=== PATIENT | female | born 1985 | race Caucasian/White ===

== ENCOUNTER → 2023-02-05 13:41 | Outpatient (REF) | payer OTHER, SELFPAY | LOC: WOUND 13:41 | PROVIDERS: ATTENDING PHYSICIAN Surgery; REFERRING PHYSICIAN Family Medicine | DX: I87.313 Chronic venous hypertension (idiopathic) with ulcer of bilateral lower extremity (principal); L97.811 Non-pressure chronic ulcer of other part of right lower leg limited to breakdown of skin; L97.311 Non-pressure chronic ulcer of right ankle limited to breakdown of skin; L97.321 Non-pressure chronic ulcer of left ankle limited to breakdown of skin; I89.0 Lymphedema, not elsewhere classified; E66.01 Morbid (severe) obesity due to excess calories | CPT/HCPCS: 97597; 97598 ==

== ENCOUNTER → 2023-02-12 14:42 | Outpatient (REF) | payer OTHER, SELFPAY | LOC: WOUND 14:42 | PROVIDERS: ATTENDING PHYSICIAN Surgery; REFERRING PHYSICIAN Family Medicine | DX: I87.313 Chronic venous hypertension (idiopathic) with ulcer of bilateral lower extremity (principal); L97.811 Non-pressure chronic ulcer of other part of right lower leg limited to breakdown of skin; L97.311 Non-pressure chronic ulcer of right ankle limited to breakdown of skin; L97.321 Non-pressure chronic ulcer of left ankle limited to breakdown of skin; I89.0 Lymphedema, not elsewhere classified; E66.01 Morbid (severe) obesity due to excess calories | CPT/HCPCS: 11042; 97597; 97598 ==

== ENCOUNTER → 2023-04-02 | Outpatient (REF) | payer OTHER, SELFPAY | LOC: DHSLP | PROVIDERS: ATTENDING PHYSICIAN Internal Medicine; FAMILY PHYSICIAN Family Medicine | DX: G47.33 Obstructive sleep apnea (adult) (pediatric) (principal) | CPT/HCPCS: 95800 ==

== ENCOUNTER 2023-04-15 15:34 | Inpatient (IN) | payer OTHER, SELFPAY ==
[2023-04-15] VITALS (14 sets, daily range): BP systolic 92–199; BP diastolic 52–115; PULSE 2–127; BMI 81.1
[2023-04-15 13:01] LABS: COVID-19 Antigen Negative (Negative)
--- NOTE | 2023-04-15 13:33 | ED.GENMED ---
History of Present Illness
General
Chief Complaint: Breathing Problem
Source: patient and family
Time Seen by Provider: 04/15/23 13:19
Travel History
Have you had any contact with someone who has COVID-19?: No
Do you have any symptoms of coronavirus? Fever > 100 degrees, chills, cough, shortness of breath, sore throat, loss of taste or smell, muscle aches, or headache?: No
History of Present Illness
History of Present Illness:
This patient is a 38-year-old female with a history of obesity, lymphedema, and multiple events of cellulitis. She says that 2 weeks ago she felt like she got a 'cold' described as productive cough and hoarse voice. Since that time, she also noted
drainage from her legs bilaterally and was concerned that she may have cellulitis. She was put on Keflex by her primary care doctor on Thursday. Since then, she notes increasing dyspnea associated with increasing cough. She denies fever, chills,
vomiting, abdominal pain. She has 'tightness' in her chest and in her back for the last 24 hours that is constant and not pleuritic in nature. She thinks it is from repeated episodes of coughing. Patient is noted to be extremely dyspneic on
presentation here
Past History
Past History
ED Past Medical History: Other (Lymphedema)
ED Past Surgical History: None
Social History
Tobacco: Non-smoker
Alcohol: None
Drug: None
Personal: Single
Living: with family
Employment: Employed (works from home)
Family History
Family History: CAD (Peripheral vascular disease and grandfather was a smoker)
Phy Exam
Physical Exam
Physical Exam:
GENERAL: Alert , moderate respiratory distress
EYE: pupils equal and reactive
NECK: Supple, no significant adenopathy.
ENT: o/p clr, mmm.
CARDIAC: Regular rate and rhythm .
LUNGS: Equal breath sounds bilaterally, moderate respiratory distress, increased respiratory rate, diffuse wheezes noted throughout
ABDOMEN: Soft, without focal tenderness, no r/g
NEUROLOGICAL: Alert and oriented, no focal neuro deficits
SKIN: Warm and dry, skin intact.
MUSCULOSKELETAL: chronic bilat le edema,redness/warmth noted R medial leg extend to thigh, no blistering or fluctance, well perfused.
PSYCH: Normal and appropriate interaction.
Course
Orders/Labs/Results
Orders:
Orders
04/15/23 12:40
COVID-19 Antigen Urgent
Source: Nasal Swab
Influenza A+B Rapid Molecular Urgent
GILDA Source: Nasal Swab
Specimen Description:
04/15/23 12:46
Electrocardiogram (*1) Stat
Reason for Study: Other
Other Reason for Exam: pneumonia
EKG- Treatment ONCE
Pulse Ox/cont/shift [RESP] Stat
Quantity: 1
04/15/23 13:31
Acetaminophen [Tylenol] 1,000 mg PO NOW STA
04/15/23 13:32
Albuterol Sulfate [Ventolin Nebules] 15 mg INH R NOW STA
Dexamethasone Sod Phosphate [Decadron] 10 mg IV NOW STA
Ipratropium Nebs [Atrovent Nebules] 1 mg INH R NOW STA
04/15/23 13:43
Complete Blood Count/No Diff Urgent
Comprehensive Metabolic Panel Urgent
Lactic Acid Q4H
Comment: CANCEL 2nd LACTIC ACID IF 1st LACTIC ACID IS LESS THAN 2
NT-proBNP Urgent
Troponin I Urgent
Blood Culture Urgent
GILDA Source: Blood/Venous
Specimen Description:
04/15/23 13:52
CXR Port [CR Chest Portable - 1 View] Urgent
Comment:
Reason For Exam: respiratory distress
Reason Study Needs to be Portable: Unable to Transport
04/15/23 14:14
Lorazepam [Ativan] 1 mg IV NOW STA
04/15/23 14:15
Piperacillin/Tazo 4.5 Gram [Zosyn] 4.5 gram in 100 ml IV NOW
04/15/23 15:23
Admit/Transfer Patient As Directed
Co-Sign Provider:
Level of Care: Inpatient admission
Assign to:: IMU- Intermediate Care
Physician / Group: [email or web address]
Diagnosis: sepsis secondaty to pnuemonia
Reason for Hospitalization: sepsis pnuemonia
Expected length of stay greater than two midnights?: Yes
ELOS- Estimated Length of Stay in days: 2
I certify the patient meets the requirements for IP care: Yes
04/15/23 15:24
Code Status As Directed
Resuscitation Status: Full Code
Sputum Culture [Respiratory Culture/Gram Stain] Routine
GILDA Source: Sputum
Specimen Description:
Date Specimen was Collected: 04/16/23
Time Specimen was Collected: 15:42
04/15/23 15:32
0.9% Sodium Chloride 500 ml [Nss] 500 ml IV BOLUS
04/15/23 15:57
Arterial Blood Gas Stat
%Oxygen/Room Air: on bipap
04/15/23 20:00
Piperacillin/Tazo 3.375 Gram [Zosyn] 3.375 gram in 50 ml IV Q6H
04/15/23 20:17
Heparin 5,000 units SC Q12
Ketorolac [Toradol] 10 mg IV Q6HPRN PRN
Levalbuterol [Xopenex 1.25 mg Inhalant Solution] 1.25 mg INH R QID
04/15/23 20:17
Activity As Directed
Activity Level: As Tolerated
Vital Signs As Directed
Frequency: Per unit guidelines
Xopenex Reason for Use As Directed
Reason for ordering Xopenex instead of Albuterol: tachy
DX Deep Vein Thrombosis Video Routine
04/15/23 22:08
UA Reflex to Culture [Urinalysis Reflex To Culture] Stat
Date Specimen was Collected: 04/15/23
Time Specimen was Collected: 22:07
04/15/23 22:24
Legionella Urinary Antigen Routine
GILDA Source: Urine
Specimen Description:
Strep pneumoniae Antigen Routine
GILDA Source: Urine
Specimen Description:
04/16/23 00:00
Dexamethasone Sod Phosphate [Decadron] 4 mg IV Q12H
04/16/23 04:07
Complete Blood Count/With Diff IN AM
Comprehensive Metabolic Panel IN AM
Abnormal Lab Results
04/15/23
13:43
WBC 17.6 H 10^3/uL
(4.8-10.8)
RBC 3.86 L 10^6/uL
(4.20-5.40)
Hgb 11.5 L g/dL
(12.0-16.0)
Hct 35.2 L %
(37.0-47.0)
MCHC 32.7 L g/dL
(33.0-37.0)
Plt Count 482 H 10^3/uL
(130-400)
Glucose 116 H mg/dl
(70-99)
04/15/23 13:43
04/15/23 13:43
Vital Signs
Initial and Last Documented VS:
Initial Vital Signs
Temp Pulse Resp BP Pulse Ox
100.5 F H 130 26 199/115 88
04/15/23 12:36 04/15/23 12:36 04/15/23 12:36 04/15/23 12:36 04/15/23 12:36
Last Documented Vital Signs
Temp Pulse Resp BP Pulse Ox
98.7 F 94 25 135/109 92
04/17/23 23:32 04/18/23 01:00 04/18/23 01:00 04/18/23 00:02 04/18/23 01:49
*Critical Care Note
Total Time (30-74mins, 75-104mins- exclusive of procedures): 35
Update Note
Update Note:
Patient presents to the Emergency Department with _cough and dyspnea
Number and Complexity of Problems Addressed at the Encounter
� Chronic conditions affecting care:
� Acute Exacerbation and/or Progression of Chronic Illness:
� Differential Diagnosis includes: But not limited to pneumonia, bronchitis, PE, STEMI, etc.
Amount and/or Complexity of Data to be Reviewed and Analyzed
� I performed an independent evaluation of and my interpretation is:
EKG: Read by me, sinus tachycardia 124, no acute ischemia, no axis deviation noted
CT:
Xrays: Read by me, portable, bilateral interstitial pneumonia noted
Laboratory Studies: Elevated white blood cell count consistent with suspected infection, troponin and BNP unremarkable, COVID and flu negative
Other:
� Review of other/old records reveals: Patient has been admitted several times for exacerbations of cellulitis of the lower extremity
� Clinical information was obtained by an independent historian: Father who is at bedside
� Prescriptions/Medications Considered but not given:
� Further testing considered but not performed:
Risk of Complications and/or Morbidity or Mortality of Patient Management
� Social determinants of health affecting care:
� Discussion with other providers (PCP, Hospitalists, Consultants, etc):
� Escalation of care including admission/observation vs risk of discharge considered: 3:23 PM multiple reassessments by me, patient initially did not tolerate BiPAP, we gave her a small dose of Ativan and she is now tolerating
BiPAP with improved work of breathing. Patient states that she feels 'much better'. I would still describe her respiratory status as concerning. At approximately 2:30 PM, case discussed with hospitalist Dr. SOURAV MARLOW and gis consultant Dr. ANGELES,
expressing her history, physical, and tenuous respiratory status with request for ICU admission. Antibiotics, nebs, steroids initiated.
535pm pt on bipap,tolerating well, looks much better.
ED Attending Note
-
Portions of this chart may have been created with voice recognition software.� Occasional wrong word or��sound alike� substitutions may have occurred due to the inherent limitations of voice recognition software.
Discharge Plan
Departure
Patient Disposition: Admit
Date of Disposition: 04/15/23
Time of Disposition: 14:40
Admit to: ICU
Admit to doctor: [email or web address]
Presentation/result/management discussed w/ accepting MD/DO: elyse
Condition: Critical
Covid-19: Negative COVID-19
Discharge Problem:
Pneumonia
Interventions
Interventions:
*Risk Screen - Suicide Last Done: 04/15/23 15:57
*General Assessment Last Done: 04/15/23 15:57
*Neglect/Abuse Screening Last Done: 04/15/23 15:57
*ED COVID-19 Vaccine History Last Done: 04/15/23 12:36
*Nursing Disposition Last Done: 04/15/23 20:32
ED- Cardiac Assessment Last Done: 04/15/23 15:55
ED- Pulmonary Assessment Last Done: 04/15/23 15:55
Discharge Date and Time
Discharge Date/Time: 04/15/23 20:33
[2023-04-15] MEDS: DECADRON 10 MG IV (13:44)
[2023-04-15] MEDS: TYLENOL 1000 MG PO (13:44)
[2023-04-15] MEDS: VENTOLIN NEBULES 15 MG INH (13:45)
[2023-04-15] MEDS: ATROVENT NEBULES 1 MG INH (13:45)
[2023-04-15 13:56] LABS: Hematocrit 35.2 % (37.0-47.0); Hemoglobin 11.5 g/dL (12.0-16.0); Mean Corp Hgb Conc. 32.7 g/dL (33.0-37.0); Mean Corpuscular Hgb 29.8 pg (27.0-31.0); Mean Corpuscular Volume 91.2 fL (81.0-99.0); Mean Platelet Volume 9.3 fL (7.4-10.4); Platelet Count 482 10^3/uL (130-400); Red Blood Cell Count 3.86 10^6/uL (4.20-5.40); Red Cell Dist. Width 13.9 % (11.5-14.5); White Blood Cell Count 17.6 10^3/uL (4.8-10.8)
[2023-04-15 14:12] LABS: Lactic Acid 1.3 mmol/L (0.7-2.0)
[2023-04-15] MEDS: ATIVAN 1 MG IV (14:17)
[2023-04-15 14:25] LABS: ALT (SGPT) 27 U/L (0-35); AST (SGOT) 26 U/L (14-36); Albumin 3.7 g/dl (3.5-5.0); Alkaline Phosphatase 86 U/L (38-126); Blood Urea Nitrogen 14 mg/dl (7-17); Carbon Dioxide 27 mmol/L (22-30); Chloride 100 mmol/L (98-107); Estimated Creatinine Clearance > 125 ml/min; Glucose 116 mg/dl (70-99); Potassium 4.7 mmol/L (3.5-5.1); Sodium 135 mmol/L (135-145); Total Bilirubin 0.9 mg/dl (0.2-1.3); Total Protein 7.8 g/dl (6.3-8.2); eGFR > 60.00
[2023-04-15 14:26] LABS: Troponin I < 0.012 ng/ml
[2023-04-15] MEDS: ZOSYN 100 IV (14:37)
--- NOTE | 2023-04-15 15:11 | CON.INTV ---
Addendum entered and electronically signed by Dot Barriga DO 04/16/23 07:25:
ABG normal, BIPAP weaned to off
Patient is transferred to floors, we will continue to follow for respiratory failure
Original Note:
Consultation
Consultation Request
Date/Time Consultation Requested: 04/15/23
Date/Time Consultation Performed: 04/15/23
Medical History
-
History of Present Illness:
38-year-old female with past medical history of chronic lower extremity edema, cellulitis, hypertension, suspected DAVID presenting with increasing shortness of breath for the past few days. She feels this may have been triggered by an upper
respiratory infection for the past 2 weeks with productive cough and hoarse voice. She does have history of chronic lower extremity edema with cellulitis, follows at wound care center. She had noticed increasing drainage from her legs as well and
was started on outpatient dose of Keflex for the past 5 days. Chest x-ray demonstrating interstitial pattern. She is flu negative in ER. On arrival, she was notably in distress with increased work of breathing, placed on BiPAP. She had been
evaluated as an outpatient for obstructive sleep apnea, but never underwent sleep study testing. She does not have a home BiPAP machine.
She is admitted to ICU for respiratory distress.
Past Medical History
Past Medical History: Other (see list below)
Social History
Tobacco: Non-smoker
Alcohol: None
Drug: None
Family History
Family History: Reviewed & Not Pertinent
Allergies / Home Medications
Allergies
Allergy/AdvReac Type Severity Reaction Status Date / Time
adhesive Allergy Rash Verified 04/15/23 12:38
Home Medications
Medication Instructions Recorded Confirmed Last Taken Type
cholecalciferol (vitamin D3) 50 50 mcg PO DAILY Supplement 02/26/23 04/15/23 03/26/23 History
mcg (2,000 unit) tablet (Vitamin
D3)
therapeutic multivitamin 1 tab PO DAILY Supplement 02/26/23 04/15/23 03/26/23 History
metoprolol succinate 25 mg 25 mg PO DAILY #30 tabs 03/03/23 04/15/23 03/26/23 Rx
tablet,extended release 24 hr
cetirizine 10 mg tablet 10 mg PO DAILY Allergies 03/26/23 04/15/23 03/26/23 History
naproxen 500 mg tablet 500 mg PO [id number] PRN mild to 03/26/23 04/15/23 03/26/23 03:00 History
moderate pain
cephalexin 500 mg capsule 500 mg PO Q12H 04/15/23 04/15/23 Unknown History
Review of Systems
-
History Source: Patient
All other systems: Negative unless noted
Vitals / Labs / Diagnostic Testing
Vital Signs
Temp Pulse Resp BP Pulse Ox
100.5 F H 116 28 113/56 95
04/15/23 12:36 04/15/23 14:00 04/15/23 14:00 04/15/23 13:10 04/15/23 14:00
Lab Data
04/15/23 13:43
04/15/23 13:43
Microbiology
04/15/23 12:40 Nasal Swab Influenza Types A & B (TONE) - Final
Negative for Influenza A & B, NAAT
Negative results must be combined with clinical observations
and patient history.
Nucleic Acid Amplification test (NAAT)performed on the
[employer] platform.
Diagnostic Testing:
Physical Exam
-
HEENT: Normocephalic, Anicteric and Moist Mucous Membranes
Cardiovascular: S1/S2, Regular Rhythm and Peripheral Edema (chronic/pitting LE edema)
Respiratory: Clear (limited BS bilaterally due to BH) and Accessory Resp Muscle Use (mild)
GI: Soft, Non Distended and Non Tender
Neurology: Awake, Alert, Oriented, AO x 3 and No Motor Deficits
Skin: Warm, Dry and Other (malodorous and flaky, poor personal hygiene)
General: Respiratory Distress (mild) and Other (supramorbid obesity)
Assessment
-
38-year-old female with past medical history of chronic lower extremity edema, cellulitis, hypertension, suspected DAVID presenting with increasing shortness of breath for the past few days. She feels this may have been triggered by an upper
respiratory infection for the past 2 weeks with productive cough and hoarse voice. Chest x-ray demonstrating interstitial pattern. On arrival, she was notably in distress with increased work of breathing, placed on BiPAP. She is admitted to ICU
for respiratory distress.
Acute hypoxic respiratory failure, O2 sherry 87%, placed on BiPAP
Increased work of breathing/shortness of breath
Fever
Leukocytosis
Recent outpatient treatment for cellulitis, Keflex x 5 days
Possible upper respiratory infection
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
Super morbid obesity, BMI 81
Suspected DAVID, never underwent HST
Hypertension
Palpitations
Plan
No current signs of metabolic encephalopathy or MS changes/following commands
Denies pain at this time.
Pain/sedation: As needed
RASS goals: 0
Hemodynamically stable, not requiring pressors.
Cardiac history reviewed -- HTN
No prior ECHO for review
Resume home meds
Monitor on telemetry
Placed on BiPAP due to work of breathing, stat ABG sent, pending
Prior history of lung disease: Super morbid obesity, suspected underlying DAVID, untreated
Continue BiPAP for now, trial off as tolerated
Supplemental O2 as indicated to maintain sats > 89%
CXR/CT reviewed indicating possible infection, though pattern is more diffuse and interstitial
Prior CT was also reviewed indicating normal parenchyma
NPO, resume diet when able
Drain Tiler recommendations
Aspiration precautions, HOB > 30 degrees
Speech therapy eval can be considered if at elevated risk
GI prophylaxis if indicated for mechanical ventilation >48 hours, prior history of GERD, stress ulcer formation in the critically ill
Creat at baseline, no history of renal disease
Void trials
Follow urine output, critical I/Os
Replete electrolytes as needed
Fever and increased WBC on presentation, suspect possible upper respiratory infection
Agree with empiric antibiotics
Cultures sent/pending
Blood
Sputum
Urine
MRSA - in past
Follow fever trend, WBC count
CBC stable, no signs of bleeding or coagulopathy.
DVT prophylaxis as assessed based on risk, including mechanical SCDs
Can transfuse if indicated for Hb <7, plt < 10
No prior h/o diabetes or thyroid disease
Monitor accuchecks PRN/SS coverage if needed
We will follow
Diagnostic Data
Chest X-Ray: 04/15/23- New findings concerning for mild bilateral pneumonia. Findings related to limited inspiration cannot be completely excluded. Clinical and laboratory correlation recommended.
CT Scan:
CHEST 03/31/23- Limited study demonstrating no active cardiopulmonary disease. There is no large central pulmonary embolus. Evaluation for peripheral pulmonary embolism is limited by the patient's large size
Echo:
PFT's:
Reports and relevant images were personally reviewed.
-----
Critical care time 60 mins -- this includes review of history, physical exam, medications, hemodynamic/ventilator parameters, laboratory data, imaging and discussion with house staff, pharmacy, respiratory therapy, cell attendant helper, and nursing.
[2023-04-15 15:18] LABS: NT-proBNP 65.8 pg/ml
--- NOTE | 2023-04-15 15:37 | HPS.HSE ---
Addendum entered and electronically signed by Claire Smith MD 04/15/23 16:18:
Continued metoprolol with hold parameters.
Original Note:
Family Physician
-
Family Physician: * NONE
Chief Complaint
-
shortness of breath
History of Present Illness
38-year-old with history of obesity, lymphedema, multiple episodes of cellulitis, hypertension, palpitations presenting with shortness of breath. 2 weeks ago she felt like she had cold described as productive cough and hoarse voice. Since that
time she is also noted drainage from her legs bilaterally and was concerned that she may have had cellulitis. She was started on Keflex which she has been on for the past 5 days. Since then she has been having increased shortness of breath
associate with increasing cough. She denies fevers or chills, vomiting or abdominal pain or diarrhea. She has tightness in her chest and in her back for the past day that is constant and she thinks is from coughing.
He denies any history of lung problems including asthma or COPD. She denies smoking, alcohol or any drugs.
She has been seeing a industrial conveyor belt repairer due to occasional symptoms of palpitations and saw her industrial conveyor belt repairer last week without any official diagnosis of arrhythmia.
Medical History
Past Medical History
Past Medical History: Reports Other ( obesity, lymphedema, multiple episodes of cellulitis, hypertension, palpitations)
Past Surgical History: Reports None
Social History
Tobacco: Non-smoker
Alcohol: None
Drug: None
Family History
Family History: Not pertinent
Allergies / Home Medications
Allergies reflects when Allergies were last updated in [facility].
Home Medications with original date entered in [facility]
Allergy/Medication List:
Allergies
Allergy/AdvReac Type Severity Reaction Status Date / Time
adhesive Allergy Rash Verified 04/15/23 12:38
Home Medications
cholecalciferol (vitamin D3) 50 mcg (2,000 unit) tablet (Vitamin D3) 50 mcg PO DAILY Supplement 02/26/23
therapeutic multivitamin 1 tab PO DAILY Supplement 02/26/23
metoprolol succinate 25 mg tablet,extended release 24 hr 25 mg PO DAILY #30 tabs 03/03/23
cetirizine 10 mg tablet 10 mg PO DAILY Allergies 03/26/23
naproxen 500 mg tablet 500 mg PO [id number] PRN mild to moderate pain 03/26/23
cephalexin 500 mg capsule 500 mg PO Q12H 04/15/23
Review of Systems
-
History Source: Patient
A 12 point ROS was completed and negative except as noted: Yes
Constitutional: Reports No Symptoms
EENT: Reports No Symptoms
Respiratory: Reports See HPI
Cardiac: Reports No Symptoms
Abdomen/GI: Reports No Symptoms
: Reports No Symptoms
Musculoskeletal: Reports No Symptoms
Skin: Reports No Symptoms
Neurological: Reports No Symptoms
Endocrine: Reports No Symptoms
Hematologic/Lymphatic: Reports No Symptoms
Psych: Reports No Symptoms
Physical Exam
Vital Signs
Vital Signs
Temp Pulse Resp BP Pulse Ox
100.5 F H 116 28 113/56 95
04/15/23 12:36 04/15/23 14:00 04/15/23 14:00 04/15/23 13:10 04/15/23 14:00
Physical Exam
General: Well Developed, Well Nourished and No Apparent Distress
HEENT: NormoCephalic, Moist mucous membranes and Atraumatic
Respiratory: Wheezes
Cardiac: S1/S2 and Regular Rhythm; No Murmur or Rub
GI: Soft, Non Tender, Non Distended and Normal Bowel Sounds; No Organomegaly
Rectal: Deferred by Provider
Musculoskeletal: No Clubbing, No Cyanosis and No Edema
Skin: No Rash
Neuro: Nonfocal/grossly intact
Laboratory Results
-
04/15/23 13:43
04/15/23 13:43
Laboratory Results
Lactic Acid 1.3 mmol/L (0.7-2.0) 04/15/23 13:43
Total Bilirubin 0.9 mg/dl (0.2-1.3) 04/15/23 13:43
AST 26 U/L (14-36) 04/15/23 13:43
ALT 27 U/L (0-35) 04/15/23 13:43
Alkaline Phosphatase 86 U/L (38-126) 04/15/23 13:43
Troponin I < 0.012 ng/ml 04/15/23 13:43
Data Reviewed
-
Lab Data: Labs Reviewed by me
Old Records: Reviewed
Impression/Plan
-
IMPRESSION:
PLAN:
# Sepsis (fever, tachycardia, tachypnea) secondary to community-acquired pneumonia with severe dyspnea
# History of MRSA positive sputum culture
-Patient with sinus tachycardia
-bilteral wheezing on examination
-Chest x-ray shows mild bilateral pneumonia
-COVID and influenza negative
-ABG pending
-Patient with history of positive MRSA in sputum as of December
-IV fluid bolus 1 L, then maintenance fluids after
-check sputum culture, legionella, Strep Antigen, MRSA, blood cultures
-Vancomycin, Zosyn
-Dexamethasone 4mg BID, Xopenex every 6 hours
-Patient given Ativan prior to attempting BiPAP with some improvement
-Pulmonology consulted
# Bilateral lower extremity cellulitis superimposed on chronic lymphedema
-Vancomycin and Zosyn will cover
Essential hypertension
-Hold metoprolol
Severe obesity
History of multiple episodes of cellulitis
Full code
DVT prophylaxis�heparin
N.p.o.
[2023-04-15] MEDS: NSS 500 IV (15:50)
[2023-04-15] MEDS: VANCOCIN 540 MG IV (15:50)
--- NOTE | 2023-04-15 16:03 | PHA.VAN.IN ---
Assessment
- Assessment
Renal Function: Appears similar to baseline
Concomitant Antimicrobials: ZOSYN
- Previous Dosing Experience
Previous Regimen: 1250MG IV Q8H
Date of Regimen: 12/26/22
Provided Trough of: 10
Provided AUC of: 373
Patient's SCR is: Similar to previous dosing experience
Patient's weight is: Similar to previous dosing experience (12/25/22 WT = 255 KG)
AUC Dosing Plan
- Dosing Variables
Dosing Weight (kg): 249
Dosing CrCl (ml/min): 125
Vd coefficient (L/kg): 0.4
- Empiric Dosing
Initial / Loading Dose: 2GM
Maintenance Regimen: 1250MG IV Q8H
Estimated AUC (mcg*h/mL): 376
Estimated Peak (mcg*h/mL): 21.7
Estimated Trough (mcg/ml): 10.7
Estimated Half Life (H): 6.4
Pharmacokinetics Vancomycin I
- -
Patient Age: 38
Patient Sex: Female
Vancomycin Day #: 1
Indication: Pulmonary/Respiratory (SEPSIS)
Requesting Provider: JEWELL
Height / Weight:
Height 5 ft 9 in
Actual Weight 249 kg
Pertinent Past Medical History: MRSA; RECURRENT CELLULITIS
- Vital Signs / Lab Results
Temp Pulse Resp BP Pulse Ox
101.0 F H 121 44 111/53 94
04/15/23 15:10 04/15/23 15:45 04/15/23 15:45 04/15/23 15:16 04/15/23 15:55
Lab Results - Hematology
04/15/23
13:43
WBC 17.6 H
Lab Results - Chemistry
04/15/23
13:43
BUN 14
Creatinine 0.6
Estimated Creat Clear > 125
Albumin 3.7
04/15/23
13:43
Lactic Acid 1.3
Microbiology Results
04/15/23 12:40 Influenza Types A & B (TONE) - Final
Nasal Swab Negative for Influenza A & B, NAAT
Negative results must be combined with clinical observations
and patient history.
Nucleic Acid Amplification test (NAAT)performed on the
[employer] platform.
[2023-04-15 16:09] LABS: B.E. 1.7 mmol/L; HCO3 25.8 mmol/L (21-28); O2 Saturation % 98.2 % (94-98); PCO2 38 mmHg (32-35); PO2 94 mmHg (83-108); pH 7.44 (7.35-7.45)
[2023-04-15] MEDS: XOPENEX 1.25 MG INHALANT SOLUTION INH (20:53)
[2023-04-15] MEDS: NSS 1000 IV (20:54)
[2023-04-15] MEDS: HEPARIN 5000 UNITS SC (20:56)
[2023-04-15] MEDS: ZOSYN 50 IV (20:56)
[2023-04-15] MEDS: TORADOL 10 MG IV (22:12)
[2023-04-15 22:38] LABS: Urine Albumin 3+ (Neg - Trace); Urine Bilirubin 1+ (Negative); Urine Character Slightly Cloudy (Clear); Urine Color Amber; Urine Glucose Negative (Negative); Urine Ketone 1+ (Negative); Urine Leukocyte Trace (Negative); Urine Nitrite Positive (Negative); Urine Occult Blood 4+ (Negative); Urine Urobilinogen Negative (Neg - 1+); Urine pH 6.5 (5.0-9.0)
[2023-04-15 22:58] LABS: Urine Amorphous Seen; Urine Red Blood Cell 30-40 /HPF (0-2)
[2023-04-15 22:59] LABS: Urine Bacteria Moderate (Negative); Urine White Cell 30-40 /HPF (0-5)
[2023-04-16] VITALS (12 sets, daily range): BP systolic 141–188; BP diastolic 77–110; PULSE 2–90; BMI 81.0
[2023-04-16] MEDS: DECADRON 4 MG IV ×2 (00:22→12:48)
[2023-04-16] MEDS: ZOSYN 50 IV ×2 (02:17→10:09)
--- NOTE | 2023-04-16 02:38 | PTCARENOTE ---
Patient received from ED via stretcher. Respiratory therapist managing BiPaP She was pulled to bed by staff. Complete CHG bath given. Tele NSR. HRR. Respirations labored with tachypnea+orthopnea. Unable to tolerate being off BiPAP for MRSA
swab. Purewick placed for incontinence. She was oriented to room and surroundings. Mom at bedside to settle patient then went home. Patient sat dropped to low 80's while sleeping. O2 increased from 10lpm to 15lpm on BiPaP. Sat to mid
90's. IVF and IV Abx as ordered.
--- NOTE | 2023-04-16 03:50 | RESPNOTE ---
Pt asked for bipap removal. Complied with pt wishes and placed pt on 12 LPM midflow
[2023-04-16 04:40] LABS: % Basophils 0.2 % (0-2); % Immature Granulocytes 0.6 % (0-0.5); % Lymphocytes 5.3 % (20.5-51.1); % Monocytes 2.7 % (1.7-9.3); % Neutrophils 91.2 % (42.2-75.2); Absolute Immature Granulocytes 0.1 10^3/uL (0-0.05); Absolute Lymphocytes 0.8 10^3/uL (1.2-3.4); Absolute Monocytes 0.4 10^3/uL (0.1-0.6); Absolute Neutrophils 14.3 10^3/uL (1.4-6.5); Hematocrit 35.4 % (37.0-47.0); Hemoglobin 11.4 g/dL (12.0-16.0); Mean Corp Hgb Conc. 32.2 g/dL (33.0-37.0); Mean Corpuscular Hgb 29.4 pg (27.0-31.0); Mean Corpuscular Volume 91.2 fL (81.0-99.0); Mean Platelet Volume 9.4 fL (7.4-10.4); Nucleated Red Blood Cells % 0 %; Platelet Count 457 10^3/uL (130-400); Red Blood Cell Count 3.88 10^6/uL (4.20-5.40); Red Cell Dist. Width 13.9 % (11.5-14.5); White Blood Cell Count 15.7 10^3/uL (4.8-10.8)
[2023-04-16 05:18] LABS: ALT (SGPT) 29 U/L (0-35); AST (SGOT) 33 U/L (14-36); Albumin 3.6 g/dl (3.5-5.0); Alkaline Phosphatase 81 U/L (38-126); Blood Urea Nitrogen 17 mg/dl (7-17); Carbon Dioxide 24 mmol/L (22-30); Chloride 107 mmol/L (98-107); Estimated Creatinine Clearance > 125 ml/min; Glucose 126 mg/dl (70-99); Potassium 5.1 mmol/L (3.5-5.1); Sodium 137 mmol/L (135-145); Total Bilirubin 0.8 mg/dl (0.2-1.3); Total Protein 7.9 g/dl (6.3-8.2); eGFR > 60.00
[2023-04-16] MEDS: NSS 1000 IV ×2 (05:25→21:39)
[2023-04-16] MEDS: VANCOCIN 275 MG IV ×2 (05:26→23:15)
[2023-04-16] MEDS: XOPENEX 1.25 MG INHALANT SOLUTION INH ×4 (07:37→19:39)
--- NOTE | 2023-04-16 08:00 | PTCARENOTE ---
Assumed care of patient from retail shift manager RN. Patient on BIPAP,Spo2 98% lungs diminished throughout. Frequent moist cough. Patient NPO overnight as per MD orders. Pure wick in use. Patient in bariatric bed [place] 1000.. Call [facility] in reach.
--- NOTE | 2023-04-16 08:51 | W.PN.PUL3 ---
Today's Communication / Plan
-
O2
BPAP as needed
Atbs
Cxs
CS
Assessment
-
Assessment
38-year-old female with past medical history of chronic lower extremity edema, cellulitis, hypertension, suspected DAVID presenting with increasing shortness of breath for the past few days. She feels this may have been triggered by an upper
respiratory infection for the past 2 weeks with productive cough and hoarse voice. Chest x-ray demonstrating interstitial pattern. On arrival, she was notably in distress with increased work of breathing, placed on BiPAP. Adm as ICU for
respiratory distress, downgraded to IMU.
Acute hypoxic respiratory failure, O2 sherry 87%, placed on BiPAP at ER
Bilateral pulm infiltrates, purulent sputum: CAP
Fever on adm
Leukocytosis
Recent outpatient treatment for cellulitis, Keflex x 5 days
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
Super morbid obesity, BMI 81
Suspected DAVID, never underwent HST
Hypertension
Palpitations
Nonsmoker
Plan
Continue O2 protocol
Currently on O2 12L, POx 96%
Not on home O2 or BDs
LLNS
Afebrile on adm up to 101F, afebrile since evening -
Hemodynamically stable, not requiring pressors.
Cardiac history reviewed -- HTN
No prior ECHO for review
Placed on BiPAP on adm - due to work of breathing, stat ABG sent, trace CO2^, normal pH and O2 (BPAP 8/5, 10L)
Prior history of lung disease: Super morbid obesity, suspected underlying DAVID, untreated (pending HST)
Used BPAP until 3:50 am 04-16, she requested to d/c as felt could not tolerate any longer (of note was on 03/22 cwp with 15L when BPAP removed)
Supplemental O2 as indicated to maintain sats > 89%
CXR bilateral patchy infiltrates
Prior CT 12-29-23 was also reviewed indicating normal parenchyma in a suboptimal study
Can resume diet
Aspiration precautions, HOB > 30 degrees
Creat at baseline, no history of renal disease
Void trials
Follow urine output, critical I/Os
Replete electrolytes as needed
Fever and increased WBC on presentation
Agree with empiric antibiotics: zosyn/vancomycin IV
Cultures sent/pending
Blood
Sputum (not collected yet)
Urine
MRSA - in Dec 2022, then negative in Feb 2023
Follow fever trend, WBC count
Empiric dexam since adm, continue for now for bronchitic symptoms
CBC stable, no signs of bleeding or coagulopathy.
DVT prophylaxis as assessed based on risk, including mechanical SCDs
No prior h/o diabetes or thyroid disease
Monitor accuchecks PRN/SS coverage if needed
Diagnostic Data
Chest X-Ray: 04/15/23- New findings (c/w July 2006) concerning for mild bilateral pneumonia. Findings related to limited inspiration cannot be completely excluded. Clinical and laboratory correlation recommended.
CTA Scan:
CHEST 03/31/23- Limited study demonstrating no active cardiopulmonary disease. There is no large central pulmonary embolus. Evaluation for peripheral pulmonary embolism is limited by the patient's large size
TTE 02-27-23: very technically difficult, contrasted, LVEF 55-60%
Subjective Data
-
Date of Service:
Date of Service: April 16, 2023
Chief Complaint: Pulmonary Follow Up
Subjective:
Cough continues, is productive of greenish sputum
Patient is not on home O2 or bronchodilators
She is a lifelong non-smoker
She recently received home sleep test device but was not able to use it due to her acute respiratory illness leading to admission
Review of Systems
General: Fever (n), Sweats and Satisfactory Appetite (n)
HEENT: Epistaxis (n) and Dysphagia (n)
Cardiopulmonary: Dyspnea, Cough, Sputum Production, Wheezing, Edema (chronic GEOVANNI), Lower Extremity Pain (n) and Hemoptysis (n)
GI: Abdominal Pain (n), Nausea (n) and Vomiting
Neuro: Weakness
Genitourinary: Hematuria (n)
Objective Data
Data Reviewed
Vital Signs / I&O / Oxygen:
Vital Signs
Temp Pulse Resp BP Pulse Ox
98.4 F 90 20 125/95 94
04/16/23 04:05 04/16/23 07:38 04/16/23 07:38 04/15/23 19:00 04/16/23 07:38
Intake and Output
04/15/23 04/16/23 04/17/23
06:59 06:59 06:59
Intake Total 1125 / 1125
Balance 1125 / 1125
SaO2 94
Physical Exam
General: Respiratory Distress (mild)
HEENT: Normocephalic and Moist Mucous Membranes
Cardiovascular: Regular Rhythm, Murmur (n), Peripheral Edema (chronic GEOVANNI) and Calf Tenderness (n)
Respiratory: Crackles, Rhonchi, Accessory Resp Muscle Use (mild) and Stridor (n)
GI: Soft, Non Distended and Non Tender
Neurology: Awake, AO x 3 and No Motor Deficits
Skin: Dry
Labs/Micro/Reports
Lab Data
04/16/23 04:07
04/16/23 04:07
Laboratory Results
04/15/23
15:57
pH 7.44
pCO2 38 H
pO2 94
HCO3 25.8
O2 Delivery Level
Microbiology
04/15/23 12:40 Nasal Swab Influenza Types A & B (TONE) - Final
Negative for Influenza A & B, NAAT
Negative results must be combined with clinical observations
and patient history.
Nucleic Acid Amplification test (NAAT)performed on the
[employer] platform.
--- NOTE | 2023-04-16 09:17 | W.PN.HOSP.TC ---
Today's Communication/Plan
-
See bold
Assessment / Plan
Assessment / Plan
HPI: 38-year-old with history of obesity, lymphedema, multiple episodes of cellulitis, hypertension, palpitations presenting with shortness of breath.� 2 weeks ago she felt like she had cold described as productive cough and hoarse voice.� Since
that time she is also noted drainage from her legs bilaterally and was concerned that she may have had cellulitis.� She was started on Keflex which she has been on for the past 5 days.� Since then she has been having increased shortness of breath
associate with increasing cough.� She denies fevers or chills, vomiting or abdominal pain or diarrhea.� She has tightness in her chest and in her back for the past day that is constant and she thinks is from coughing.
He denies any history of lung problems including asthma or COPD.� She denies smoking, alcohol or any drugs.
She has been seeing a arcade attendant due to occasional symptoms of palpitations and saw her arcade attendant last week without any official diagnosis of arrhythmia.
# Sepsis (fever, tachycardia, tachypnea) secondary to community-acquired pneumonia with severe dyspnea
#Acute hypoxic respiratory failure
# History of MRSA positive sputum culture
Chest x-ray shows mild bilateral pneumonia, COVID and influenza negative
Pulmonology following, continue vancomycin, Zosyn, IV steroids, bronchodilators
Currently on 10 L mid flow, wean as tolerated
# Bilateral lower extremity cellulitis superimposed on chronic lymphedema
Status post outpatient Keflex for 5 days
Covered with Vancomycin and Zosyn
Essential hypertension
-Hold metoprolol
-Start hydralazine 50 mg 3 times daily with hold parameters
Severe obesity due to excess calories
-Affects all aspects of care
Constipation
-Start MiraLAX
Palpitations
-Follows with cardiology outpatient
History of multiple episodes of cellulitis
DVT prophylaxis�SQ Lovenox
Full code
Physical Exam
General: Morbidly obese, no acute distress
HEENT: Normocephalic, Atraumatic, EOMI, MMM
Respiratory: Clear to Auscultation bilaterally
Cardiac: Normal S1/S2, Regular Rate and Rhythm
GI: Soft, Nontender, Nondistended, Normal Bowel Sounds
Extremities: No Clubbing, Cyanosis
Bilateral lower extremity lymphedema noted with erythema
Anticipated Discharge: > 48 hours
Subjective/Interval History
-
Date of Service: April 16, 2023
Patient reports feeling better. She is hungry, wants to eat.
Objective Data
-
Labs:
Laboratory Results
04/16/23
04:07
WBC 15.7 H
Hgb 11.4 L
Hct 35.4 L
Plt Count 457 H
Sodium 137
Potassium 5.1
Chloride 107
Carbon Dioxide 24
BUN 17
Creatinine 0.5 L
Glucose 126 H
Calcium 9.0
Total Bilirubin 0.8
AST 33
ALT 29
Alkaline Phosphatase 81
Vital Signs:
Vital Signs
Temp Pulse Resp BP Pulse Ox
98.4 F 90 20 125/95 94
04/16/23 04:05 04/16/23 07:38 04/16/23 07:38 04/15/23 19:00 04/16/23 07:38
I&O
04/15/23 04/16/23 04/17/23
06:59 06:59 06:59
Intake Total 1125 / 1125
Balance 1125 / 1125
[2023-04-16] MEDS: TOPROL XL 25 MG PO (10:08)
[2023-04-16] MEDS: HEPARIN 5000 UNITS SC (10:09)
--- NOTE | 2023-04-16 10:34 | WOUNDNOTE ---
RLE (POSTERIOR MEDIAL)
--- NOTE | 2023-04-16 10:34 | WOUNDNOTE ---
RLE (POSTERIOR MEDIAL)
--- NOTE | 2023-04-16 10:34 | WOUNDNOTE ---
L CALF/ANKLE (POSTERIOR)
--- NOTE | 2023-04-16 10:35 | WOUNDNOTE ---
THUAN (L ANTERIOR, R MEDIAL)
--- NOTE | 2023-04-16 10:35 | WOUNDNOTE ---
THIGHS (POSTERIOR UPPER)
--- NOTE | 2023-04-16 10:54 | WOUNDNOTE ---
WO RN note: Patient admitted with sepsis d/t pneumonia. Patient lives with her parents.
See H&P for complete history.
PMH: obesity, lymphedema, cellulitis, HTN.
Wound Location and type/assessment: Patient admitted with: healing LE ulcers r/t lymphedema, pink, scabbed. Patient wears knee high Stanford wraps at home. Her mother helps her with LE care/Stanford wraps. Stage 2 chafed inner buttocks skin and posterior
thigh discolored dull red skin with scattered small dermal ulcers r/t edema, friction and moisture. Mild abdominal/groin/skin fold MASD.
Appetite: currently NPO.
Pressure redistribution devices in place: [place] 1000 bariatric bed with bariatric air mattress. Patient can turn self in bed.
Plan: LE dressings changed. Bilateral knee high Stanford wraps reapplied. Bariatric air chair cushion placed under heels.
Confirmed orders including knee high Stanford wraps with Dr. Epperson and updated RN Lyndsay.
Updated care plan and will follow as needed.
Note to case management requested for discharge: VN if patient goes home.
Recommend follow up at wound care center upon discharge.
--- NOTE | 2023-04-16 10:58 | PHA.VAN.FU ---
Vancomycin Assessment / Plan
- Assessment
Renal Function: Stable
WBC's are: Trending Down
Concomitant Antimicrobials: piperacillin/tazobactam
Loading dose of 2g was received 04/15 15:50 but did not receive first maintenance dose until 04/16 05:26 (>12H between doses)
Given BMI and that 2g is less than 10mg/kg/dose, expect patient does not have much of the load remaining in her system
Additionally, patient will likely be slower to reach equilibrium between serum and tissues given larger Vd due to body weight
- Dosing Plan
Continue: Vanc 1250mg Q8H
Will substitute 1400 dose with additional 2g dose as anticipate much of original load has been cleared and patient will be slow to accumulate with BMI
Resume 1250mg Q8H dosing at 2200
Patient unlikely to follow population PK with BMI (likely reduced compared to population PK)
- Monitoring Plan
No level(s) ordered at this time: consider levels in next few days
MRSA Screen: Ordered per protocol
- Follow Up
Pharmacy will continue to follow.
Vancomycin Follow UP
- -
Patient Age: 38
Patient Sex: Female
Vancomycin Day #: 2
Indication: Pulmonary/Respiratory
Requesting Provider: Dr. Smith
Pertinent Antimicrobial Allergies:
no pertinent antibiotic allergies
Height / Weight:
Height 5 ft 9 in
Actual Weight 248.682 kg
IBW in k
Adjusted BW in k
Pertinent Past Medical History: BMI ~81
- Vital Signs / Lab Results
Temp Pulse Resp BP Pulse Ox
98.2 F 90 20 125/95 94
04/16/23 07:06 04/16/23 07:38 04/16/23 07:38 04/15/23 19:00 04/16/23 07:38
Lab Results - Hematology
01/03/24 01/04/24
13:43 04:07
WBC 17.6 H 15.7 H
Lab Results - Chemistry
04/15/23 04/16/23
13:43 04:07
BUN 14 17
Creatinine 0.6 0.5 L
Estimated Creat Clear > 125 > 125
Albumin 3.7 3.6
04/15/23 04/15/23
13:43 17:00
Lactic Acid 1.3 Cancelled
Lab Results - Urine
04/15/23
22:08
Urine Nitrite (Reflex) Positive A
Leukocyte Esterase Rfl Trace A
Ur Squamous Epith Cells 11-15
Microbiology Results
04/15/23 22:24 Legionella Urinary Antigen - Final
Urine Negative for Legionella pneumophila Serogroup 1 antigen.
A negative result does not rule out the possiblity of
Legionella infection due to other serogroups or species of
Legionella. Clinical correlation is recommended.
Streptococcus pneumoniae Antigen (M - Final
Negative for Streptococcus pneumoniae antigen.
A negative result does not exclude infection with
Streptococcus pneumoniae. Clinical correlation is
recommended.
04/15/23 12:40 Influenza Types A & B (TONE) - Final
Nasal Swab Negative for Influenza A & B, NAAT
Negative results must be combined with clinical observations
and patient history.
Nucleic Acid Amplification test (NAAT)performed on the
[employer] platform.
--- NOTE | 2023-04-16 10:59 | WOUNDNOTE ---
[facility] RN note: Patient admitted with sepsis d/t pneumonia. Patient lives with her parents.
See H&P for complete history.
PMH: obesity, lymphedema, cellulitis, HTN.
Wound Location and type/assessment: Patient admitted with: healing LE ulcers r/t lymphedema, pink, scabbed. Patient wears knee high Stanford wraps at home. Her mother helps her with LE care/Stanford wraps. +Pedal pulses heard via portable Doppler. +1 LE
edema. 03/27/22 arterial Doppler R TBI .67, L TBI .89. 12/25/22 LE venous Doppler negative for DVT. Stage 2 chafed inner buttocks skin and posterior thigh discolored dull red skin with scattered small dermal ulcers r/t edema, friction and moisture.
Mild abdominal/groin/skin fold MASD.
Appetite: currently NPO.
Pressure redistribution devices in place: [place] 1000 bariatric bed with bariatric air mattress. Patient can turn self in bed.
Plan: LE dressings changed. Bilateral knee high Stanford wraps reapplied. Bariatric air chair cushion placed under heels.
Confirmed orders including knee high Stanford wraps with Dr. Epperson and updated RN Lyndsay.
Updated care plan and will follow as needed.
Note to case management requested for discharge: VN if patient goes home.
Recommend follow up at wound care center upon discharge.
[2023-04-16] MEDS: ZOSYN 100 IV ×2 (13:35→21:39)
[2023-04-16] MEDS: VANCOCIN 540 MG IV (14:20)
--- NOTE | 2023-04-16 17:30 | CM ---
Patient with Hx including obesity, lymphedema, multiple episodes of cellulitis with Dx sepsis, b/l LE cellulitis.
Met with patient who resides with her parents in a two story home with a few steps to enter.
She is independent in ADLs and ambulation.
Her mother assists with her lymphedema fariba wraps to her legs.
The patient reports no DME/VN in the past.
PCP Dr Burnette
Pharmacy [facility]
No CM d/c needs identified.
Plan home.
[2023-04-16] MEDS: APRESOLINE 50 MG PO ×2 (18:32→23:42)
[2023-04-16] MEDS: LOVENOX 60 MG SC (18:36)
[2023-04-16] MEDS: XANAX 0.25 MG PO ×2 (20:14→23:42)
--- NOTE | 2023-04-16 20:16 | PTCARENOTE ---
Made aware by RT that patient is requesting something for anxiety. Upon entering patient's room, I saw pt was flushed in the face and chest and receiving neb treatment. No other rash was noted to anterior side of pt. Pt stated this anxiety and sob
started after pt was moved from room 3352 into room 3349 at change of shift, but before she started to receive her neb treatment. PT BP remains elevated. Wheezing present bilaterally; pt reports this has improved slightly after receiving neb tx.
Respirations 20-30s. PANTOGRAPH WATCHER Marlene Marquis made aware. Prn xanax order received and administered per JUN. Med education provided to patient since this is her first dose of xanax.
Of note, patient had not previously received her steroid dose but did receive her first dose of hydralazine about an hour ago.
[2023-04-16] MEDS: DESENEX/MITRAZOL/ZEASORB 1 APPLIC TOPICAL (21:39)
[2023-04-17] VITALS (18 sets, daily range): BP systolic 145–185; BP diastolic 84–155; PULSE 2–109; BMI 84.0
[2023-04-17] MEDS: DECADRON 4 MG IV ×3 (00:52→23:43)
--- NOTE | 2023-04-17 02:09 | PTCARENOTE ---
Addendum entered by Zack Ryder RN 04/17/23 02:43:
Pt continues to be tachypneic, respirations 30s. Audible wheezing RT and SUPERVISOR COLOR MAKING aware. Patient continues to refuse Bipap because she is scared of it. Received prn order for ativan. Refer to MAR. Pt reporting hot flashes. Ice packs applied for comfort.
Original Note:
Patient pre-medicated with prn xanax per SUPERVISOR COLOR MAKING Wood prior to administering hydralazine and Decadron. About an hour later pt reported increased sob with flushed face. Pt then called RN into room and requested to be intubated. Pt stated she is the worst
shes ever felt and she thinks her body will recover better. Sp02 93-96% on 7L midflow NC. Pt is visibly sob in between words and sentences. RT notified and at bedside, able to talk pt down. Therapeutic communication and encouragement provided. Pt
made aware that intubation is usually the last resort, is extremely invasive, and not something you can request. NRB placed for comfort. [place] nasal ointment requested from SUPERVISOR COLOR MAKING.
[2023-04-17] MEDS: ZOSYN 100 IV ×4 (02:38→21:14)
[2023-04-17] MEDS: ATIVAN 0.5 MG IV ×4 (02:55→23:42)
[2023-04-17] MEDS: XOPENEX 1.25 MG INHALANT SOLUTION INH ×5 (03:05→19:50)
--- NOTE | 2023-04-17 03:31 | PTCARENOTE ---
Patient agreeable for Bipap. RT at bedside, administered xopenex per JUN. Placed pt on Bipap 01/02 with 15L. Sp02 89-93% Respirations 30s. EMERGENCY MEDICAL TECHNICIAN updated.
--- NOTE | 2023-04-17 03:50 | W.PN.UPDATE ---
Update Note
Progress Note Update
Patient with anxiety causing tachypnea leading her to ask to be intubated. IV Ativan added. Mid flow at 7L resulted in 95-97%. Then tried NRB mask and then agreed to try bipap. PRN Xopenex given.
[2023-04-17] MEDS: VANCOCIN 275 MG IV ×3 (05:56→22:05)
[2023-04-17 06:24] LABS: B.E. 2.6 mmol/L; HCO3 29.3 mmol/L (21-28); O2 Saturation % 97.4 % (94-98); PCO2 53 mmHg (32-35); PO2 85 mmHg (83-108); pH 7.35 (7.35-7.45)
[2023-04-17 06:42] LABS: Hematocrit 35.5 % (37.0-47.0); Hemoglobin 11.3 g/dL (12.0-16.0); Mean Corp Hgb Conc. 31.8 g/dL (33.0-37.0); Mean Corpuscular Hgb 29.4 pg (27.0-31.0); Mean Corpuscular Volume 92.4 fL (81.0-99.0); Mean Platelet Volume 9.6 fL (7.4-10.4); Platelet Count 491 10^3/uL (130-400); Red Blood Cell Count 3.84 10^6/uL (4.20-5.40); Red Cell Dist. Width 13.8 % (11.5-14.5); White Blood Cell Count 23.5 10^3/uL (4.8-10.8)
[2023-04-17 07:21] LABS: Blood Urea Nitrogen 17 mg/dl (7-17); Calcium 8.7 mg/dl (8.4-10.2); Carbon Dioxide 27 mmol/L (22-30); Chloride 104 mmol/L (98-107); Estimated Creatinine Clearance > 125 ml/min; Glucose 120 mg/dl (70-99); Magnesium 2.2 mg/dl (1.6-2.3); Potassium 5.4 mmol/L (3.5-5.1); Sodium 135 mmol/L (135-145); eGFR > 60.00
--- NOTE | 2023-04-17 08:18 | PTCARENOTE ---
Patient received from windows application administrator. Patient resting comfortably in bed. AAO, VSS at this time. Currently on BiPAP, patient refusing at first but did place on. Periods of anxiety overnight and facial flushing per night RN, lyudmila given.
Complaints of a headache, treating with Tylenol. While off BiPAP, will attempt to wean O2 as appropriate. Call [place] in reach.
[2023-04-17] MEDS: TYLENOL 650 MG PO (08:29)
[2023-04-17] MEDS: APRESOLINE 50 MG PO (08:30)
[2023-04-17] MEDS: DESENEX/MITRAZOL/ZEASORB 1 APPLIC TOPICAL ×2 (08:30→21:14)
[2023-04-17] MEDS: HYDROPHOR 1 APPLIC TOPICAL (08:33)
[2023-04-17] MEDS: NSS (PRESERVATIVE FREE) 0.25 ML IV ×3 (08:40→23:43)
--- NOTE | 2023-04-17 08:57 | W.PN.HOSP.TC ---
Addendum entered and electronically signed by Dexter Epperson MD 04/17/23 17:17:
Patients has:
Stage 2 buttocks pressure injury, POA
-Wound care, frequent turning
Original Note:
Today's Communication/Plan
-
see bold
Assessment / Plan
Assessment / Plan
HPI: 38-year-old with history of obesity, lymphedema, multiple episodes of cellulitis, hypertension, palpitations presenting with shortness of breath.� 2 weeks ago she felt like she had cold described as productive cough and hoarse voice.� Since
that time she is also noted drainage from her legs bilaterally and was concerned that she may have had cellulitis.� She was started on Keflex which she has been on for the past 5 days.� Since then she has been having increased shortness of breath
associate with increasing cough.� She denies fevers or chills, vomiting or abdominal pain or diarrhea.� She has tightness in her chest and in her back for the past day that is constant and she thinks is from coughing.
He denies any history of lung problems including asthma or COPD.� She denies smoking, alcohol or any drugs.
She has been seeing a ecosystem ecology professor due to occasional symptoms of palpitations and saw her ecosystem ecology professor last week without any official diagnosis of arrhythmia.
# Sepsis (fever, tachycardia, tachypnea) secondary to community-acquired pneumonia with severe dyspnea
#Acute hypoxic respiratory failure
# History of MRSA positive sputum culture
Chest x-ray shows mild bilateral pneumonia, COVID and influenza negative
Pulmonology following, continue vancomycin, Zosyn, IV steroids, bronchodilators
Currently on 10-15 L mid flow, wean as tolerated
#Anxiety
IV Ativan as needed
# Bilateral lower extremity cellulitis superimposed on chronic lymphedema
Status post outpatient Keflex for 5 days
Covered with Vancomycin and Zosyn
#Essential hypertension
-Resume metoprolol
-Increase hydralazine 100 mg 3 times daily with hold parameters
-Add amlodipine 10 mg daily
#Hyperkalemia
Lokelma
Severe obesity due to excess calories
-Affects all aspects of care
Constipation
-Started MiraLAX
Palpitations
-Follows with cardiology outpatient, resume metoprolol
History of multiple episodes of cellulitis
DVT prophylaxis�SQ Lovenox
Full code
Physical Exam
General: Morbidly obese, no acute distress
HEENT: Normocephalic, Atraumatic, EOMI, MMM
Respiratory: Clear to Auscultation bilaterally
Cardiac: Normal S1/S2, Regular Rate and Rhythm
GI: Soft, Nontender, Nondistended, Normal Bowel Sounds
Extremities: No Clubbing, Cyanosis
Bilateral lower extremity lymphedema noted with erythema
Anticipated Discharge: > 48 hours
Subjective/Interval History
-
Date of Service: April 17, 2023
Overnight events noted. Patient anxious overnight, requiring IV Ativan.
Objective Data
-
Labs:
Laboratory Results
04/17/23 04/17/23
05:46 06:09
WBC 23.5 H
Hgb 11.3 L
Hct 35.5 L
Plt Count 491 H
HCO3 29.3 H
Sodium 135
Potassium 5.4 H
Chloride 104
Carbon Dioxide 27
BUN 17
Creatinine 0.5 L
Glucose 120 H
Calcium 8.7
Vital Signs:
Vital Signs
Temp Pulse Resp BP Pulse Ox
99.3 F 97 32 170/100 98
04/17/23 04:10 04/17/23 08:30 04/17/23 07:43 04/17/23 08:30 04/17/23 07:43
I&O
04/16/23 04/17/23 04/18/23
06:59 06:59 06:59
Intake Total 1125 / 1125 3145 / 3145
Output Total 950 / 950
Balance 1125 / 1125 2195 / 219
--- NOTE | 2023-04-17 09:32 | W.PN.PUL3 ---
Today's Communication / Plan
-
O2
BPAP
Atbs
CS
CXR AM
Assessment
-
Assessment
38-year-old female with past medical history of chronic lower extremity edema, cellulitis, hypertension, suspected DAVID presenting with increasing shortness of breath for the past few days. She feels this may have been triggered by an upper
respiratory infection for the past 2 weeks with productive cough and hoarse voice. Chest x-ray demonstrating interstitial pattern. On arrival, she was notably in distress with increased work of breathing, placed on BiPAP. Adm as ICU for
respiratory distress, downgraded to IMU.
Acute hypoxic respiratory failure, O2 sherry 87%, placed on BiPAP at ER
Bilateral pulm infiltrates, purulent sputum: CAP
Fever on adm
Leukocytosis
Recent outpatient treatment for cellulitis, Keflex x 5 days
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
Super morbid obesity, BMI 81
Suspected DAVID, never underwent HST
Hypertension
Palpitations
Nonsmoker
Plan
Events from earlier today, dyspneic, anxious, she requested SMOKING PIPE MAKER for intubation, fortunately calmed down with anxiolysis, started BPAP 22/10 with O2 15L which she used for 4 hrs till 7 am today (did not like BPAP but found it somewhat useful)
Productive cough continues, steel color
Remains afebrile and hemodyn stable
Currently on O2 15L, POx 93%
Not on home O2 or BDs
LLNS
Afebrile on adm up to 101F, afebrile since evening 01-03
Hemodynamically stable, not requiring pressors.
Cardiac history reviewed -- HTN
No prior ECHO for review
Placed on BiPAP on adm 01-03 due to work of breathing, stat ABG sent, trace CO2^, normal pH and O2 (BPAP 8/5, 10L)
Prior history of lung disease: Super morbid obesity, suspected underlying DAVID, untreated (pending HST)
Used BPAP until 3:50 am 04-16, she requested to d/c as felt could not tolerate any longer (of note was on 03/22 cwp with 15L when BPAP removed)
CXR bilateral patchy infiltrates
Prior CT 04-10-23 was also reviewed indicating normal parenchyma in a suboptimal study
Can resume diet
Aspiration precautions, HOB > 30 degrees
Creat at baseline, no history of renal disease
Void trials
Follow urine output, critical I/Os
Replete electrolytes as needed
Fever and increased WBC on presentation
Agree with empiric antibiotics: zosyn/vancomycin IV
Cultures sent/pending
Bloodx1 so far negative
Sputum pending results
Urine pending results
MRSA positive 04-16 and in Dec 2022 (negative in Feb 2023)
Follow fever trend, WBC count
CXR in AM
Empiric dexam since adm, continue for now for bronchitic symptoms
CBC stable, no signs of bleeding or coagulopathy.
DVT prophylaxis as assessed based on risk, including mechanical SCDs
No prior h/o diabetes or thyroid disease
Monitor accuchecks PRN/SS coverage if needed
D/w Ms Batres on a daily basis
Diagnostic Data
Chest X-Ray: 04/15/23- New findings (c/w July 2006) concerning for mild bilateral pneumonia. Findings related to limited inspiration cannot be completely excluded. Clinical and laboratory correlation recommended.
CTA Scan:
CHEST 03/31/23- Limited study demonstrating no active cardiopulmonary disease. There is no large central pulmonary embolus. Evaluation for peripheral pulmonary embolism is limited by the patient's large size
TTE 02-27-23: very technically difficult, contrasted, LVEF 55-60%
Subjective Data
-
Date of Service:
Date of Service: April 17, 2023
Chief Complaint: Pulmonary Follow Up
Subjective:
Events noted
Anxiety and dyspnea last night, required anxiolysis and BPAP 01/02 which she used for 4 hrs till 7 am today (did not like BPAP but found it somewhat useful)
Productive cough continues
Remains afebrile and hemodyn stable
Currently on O2 15L, POx 93%
Review of Systems
General: Fever (n), Sweats (n), Chills and Satisfactory Appetite (n)
HEENT: Epistaxis and Dysphagia (n)
Cardiopulmonary: Dyspnea, Sputum Production, Wheezing (n), Chest Pain (n) and Hemoptysis
GI: Abdominal Pain, Nausea and Vomiting
Neuro: Weakness
Genitourinary: Hematuria (n)
Objective Data
Data Reviewed
Vital Signs / I&O / Oxygen:
Vital Signs
Temp Pulse Resp BP Pulse Ox
99.3 F 97 32 170/100 98
04/17/23 04:10 04/17/23 08:30 04/17/23 07:43 04/17/23 08:30 04/17/23 07:43
Intake and Output
04/16/23 04/17/23 04/18/23
06:59 06:59 06:59
Intake Total 1125 / 1125 3145 / 3145
Output Total 950 / 950
Balance 1125 / 1125 2195 / 2195
SaO2 98
Physical Exam
General: Respiratory Distress (mild)
HEENT: Normocephalic and Moist Mucous Membranes
Cardiovascular: Regular Rhythm, Murmur (n), Peripheral Edema (chronic GEOVANNI) and Calf Tenderness (n)
Respiratory: Crackles, Rhonchi, Accessory Resp Muscle Use (mild) and Stridor (n)
GI: Soft, Non Distended and Non Tender
Neurology: Awake, AO x 3 and No Motor Deficits
Skin: Dry
Labs/Micro/Reports
Lab Data
04/17/23 05:46
04/17/23 05:46
Laboratory Results
04/17/23
06:09
pH 7.35
pCO2 53 H
pO2 85
HCO3 29.3 H
O2 Delivery Level
Microbiology
04/16/23 15:58 Nose Nasal Screen MRSA (PCR) - Final
Staph aureus MRSA
04/16/23 15:48 Sputum Gram Stain - Preliminary
04/15/23 13:43 Blood/Venous Blood Culture - Preliminary
No Growth in 24 hours- Final report to follow
04/15/23 22:24 Urine Legionella Urinary Antigen - Final
Negative for Legionella pneumophila Serogroup 1 antigen.
A negative result does not rule out the possiblity of
Legionella infection due to other serogroups or species of
Legionella. Clinical correlation is recommended.
04/15/23 22:24 Urine Streptococcus pneumoniae Antigen (M - Final
Negative for Streptococcus pneumoniae antigen.
A negative result does not exclude infection with
Streptococcus pneumoniae. Clinical correlation is
recommended.
04/15/23 12:40 Nasal Swab Influenza Types A & B (TONE) - Final
Negative for Influenza A & B, NAAT
Negative results must be combined with clinical observations
and patient history.
Nucleic Acid Amplification test (NAAT)performed on the
[employer] platform.
--- NOTE | 2023-04-17 10:44 | PHA.VAN.FU ---
Addendum entered and electronically signed by Madyson Abraham, [facility] 04/17/23 12:24:
Added Peak 04/18 at 0100 and a Trough on 04/18 at 0530
Original Note:
Vancomycin Assessment / Plan
- Assessment
Renal Function: Stable
WBC's are: Trending Up
In the past 24 hrs, patient has been: Afebrile
Concomitant Antimicrobials: Piperacillin/Tazobactam
- Dosing Plan
Continue: 1250mg Q8H
- Monitoring Plan
No level(s) ordered at this time: Consider levels in next few days
- Follow Up
Pharmacy will continue to follow.
Vancomycin Follow UP
- -
Patient Age: 38
Patient Sex: Female
Vancomycin Day #: 3
Indication: Pulmonary/Respiratory
Requesting Provider: Dr. Simth
Pertinent Antimicrobial Allergies:
no pertinent antibiotic allergies
Height / Weight:
Height 5 ft 9 in
Actual Weight 257.754 kg
IBW in k
Adjusted BW in k
Pertinent Past Medical History: BMI ~81
- Vital Signs / Lab Results
Temp Pulse Resp BP Pulse Ox
99.2 F 97 32 170/100 98
04/17/23 07:05 04/17/23 08:30 04/17/23 07:43 04/17/23 08:30 04/17/23 07:43
Lab Results - Hematology
04/15/23 04/16/23 04/17/23
13:43 04:07 05:46
WBC 17.6 H 15.7 H 23.5 H
Lab Results - Chemistry
04/15/23 04/16/23 04/17/23
13:43 04:07 05:46
BUN 14 17 17
Creatinine 0.6 0.5 L 0.5 L
Estimated Creat Clear > 125 > 125 > 125
Albumin 3.7 3.6
04/15/23 04/15/23
13:43 17:00
Lactic Acid 1.3 Cancelled
Microbiology Results
04/16/23 15:58 Nasal Screen MRSA (PCR) - Final
Nose Staph aureus MRSA
04/16/23 15:48 Gram Stain - Preliminary
Sputum
04/15/23 13:43 Blood Culture - Preliminary
Blood/Venous No Growth in 24 hours- Final report to follow
04/15/23 22:24 Legionella Urinary Antigen - Final
Urine Negative for Legionella pneumophila Serogroup 1 antigen.
A negative result does not rule out the possiblity of
Legionella infection due to other serogroups or species of
Legionella. Clinical correlation is recommended.
Streptococcus pneumoniae Antigen (M - Final
Negative for Streptococcus pneumoniae antigen.
A negative result does not exclude infection with
Streptococcus pneumoniae. Clinical correlation is
recommended.
04/15/23 12:40 Influenza Types A & B (TONE) - Final
Nasal Swab Negative for Influenza A & B, NAAT
Negative results must be combined with clinical observations
and patient history.
Nucleic Acid Amplification test (NAAT)performed on the
[employer] platform.
--- NOTE | 2023-04-17 12:08 | PN.CDI ---
CDI
- -
CDI:
Physician Documentation Request
Admit Date: 04/15/23 15:34
Dear Doctor Do,
Please review the following and provide your response in the progress notes.
Clinical Indicators:
- 1/ Wound note indicates Stage 2 buttocks pressure injury, POA
Physician documentation of the type and location of wounds is required for compliant documentation. Based on the above clinical findings and your assessment, please provide the following in your progress note:
1. Location of the ulcer/wound, including laterality.
2. Type (etiology) of ulcer/wound:
- Diabetic ulcer
- Arterial (ischemic) ulcer
- Traumatic wound
- Venous stasis ulcer
- Pressure (decubitus) ulcer
- Non-healing surgical wound
- Other
- Unable to determine
Use of terms such as suspected, likely, concern for, or probable (associated with a specific diagnosis that is being evaluated, monitored, or treated as if it exists) are acceptable and can be coded in the inpatient setting, when documented at the
time of discharge.
Thank you,
Lauren Espinosa RN
CDI Specialist
Please use your independent medical judgment in providing your response.
*Source: National Pressure Ulcer Advisory Panel (NPUAP)
[2023-04-17] MEDS: NSS 1000 IV (13:39)
[2023-04-17] MEDS: APRESOLINE 100 MG PO ×2 (17:39→22:05)
[2023-04-17] MEDS: LOVENOX 60 MG SC (17:45)
[2023-04-17] MEDS: LOKELMA 10 GRAM PO (17:48)
[2023-04-17] MEDS: NSS IV (17:49)
[2023-04-18] VITALS (27 sets, daily range): BP systolic 108–158; BP diastolic 61–109; PULSE 2–81; BMI 81.1
[2023-04-18] MEDS: TORADOL 15 MG IV (00:04)
[2023-04-18 01:26] LABS: Vancomycin Peak 17.6 ug/ml (18-26)
[2023-04-18] MEDS: ZOSYN 100 IV ×4 (03:01→20:40)
--- NOTE | 2023-04-18 03:10 | PTCARENOTE ---
Pt with mulitple episodes of desaturaing into 70s desptie BIPAP in use, taking longer to recover. Increased work of breathing, tachypnea, and use of accessory muscles demonstrated. RT and TYPESETTING SUPERVISOR covering house contacted. ABGs ordered, to be
obtained by RT. Will continue to closely monitor.
--- NOTE | 2023-04-18 03:33 | W.PN.UPDATE ---
Update Note
Progress Note Update
RN reports pt with increased desaturations overnight as low as 82% and becoming harder for pt to recover. Pt admitted with pneumonia 04/15/23.
Pt on bipap 01/02 with 15 Liters pulse ox 86-90% Pt with increase WOB and using accessory muscles. Per RN pt cannot tolerate any movement (desats and cyanosis).RR in the 40s
Plan:
check ABG
transfer to ICU -low threshold for intubation
Pt fully understands risk of intubation and possibility of difficulty with extubation.
[2023-04-18 03:37] LABS: B.E. 4.8 mmol/L; HCO3 31.2 mmol/L (21-28); O2 Saturation % 91.3 % (94-98); O2 Therapy BIPAP; PCO2 54 mmHg (32-35); PO2 62 mmHg (83-108); pH 7.37 (7.35-7.45)
[2023-04-18 04:07] LABS: Hematocrit 34.8 % (37.0-47.0); Mean Corp Hgb Conc. 31.6 g/dL (33.0-37.0); Mean Corpuscular Hgb 28.9 pg (27.0-31.0); Mean Corpuscular Volume 91.6 fL (81.0-99.0); Mean Platelet Volume 9.4 fL (7.4-10.4); Platelet Count 472 10^3/uL (130-400); Red Cell Dist. Width 13.8 % (11.5-14.5)
[2023-04-18 04:26] LABS: Vancomycin Trough 13.4 ug/ml (5-20)
[2023-04-18 04:42] LABS: Blood Urea Nitrogen 19 mg/dl (7-17); Calcium 8.9 mg/dl (8.4-10.2); Carbon Dioxide 31 mmol/L (22-30); Chloride 100 mmol/L (98-107); Estimated Creatinine Clearance > 125 ml/min; Glucose 116 mg/dl (70-99); Potassium 5.2 mmol/L (3.5-5.1); Sodium 134 mmol/L (135-145); eGFR > 60.00
[2023-04-18] MEDS: ATIVAN 1 MG IV (05:10)
[2023-04-18] MEDS: NSS (PRESERVATIVE FREE) 0.25 ML IV (05:11)
[2023-04-18] MEDS: NSS (PRESERVATIVE FREE) 0.5 ML IV (05:13)
--- NOTE | 2023-04-18 05:28 | TRANSFER ---
Electronic orders received for transfer to ICU. Verbal report given to AUTOMATION CONTROL TECHNICIAN. Pt transferred in bed with all personal belongings.
[2023-04-18] MEDS: VANCOCIN 275 MG IV (05:37)
[2023-04-18] MEDS: PRECEDEX 100 IV ×4 (06:02→20:40)
--- NOTE | 2023-04-18 06:10 | PTCARENOTE ---
04/18 received pt from IMU, assessments completed, patient given CHG bath. Multiple areas of excoriation to b/l legs/thighs and groin.
pt has severe lymphedema to blle as well as cellulitis to b/l/l/e (on abx treatment)
pt in bariatric bed, unable to assist with turning, becomes very short of breath with any exertion. pt is on NIV and still very anxious, grabbing at pillows, crying, grabbing for staff hands.
IV precedex started as well as PRN ativan given. Precedex is at 0.2, and having successful results, pt has been on it for 30 min and her RR has dropped from 40 to 23 and HR dropped from [address] and pt having dark reggie urine.
pt resting comfortably for the first time, no further needs and call elmore with in reach at all times.
[2023-04-18 06:45] LABS: Glucose - Point of Care 117 mg/dl (70-99)
--- NOTE | 2023-04-18 07:17 | W.PN.INTV ---
Today's Communication / Plan
Recommendations
CXR appears worsening, recheck proBNP/procal
Cultures are neg, has remains on abx
NIV and precedex are continued
Anxiety may be a component
Unfortunately her super morbid obesity is the largest contributing factor
Assessment
-
38-year-old female with past medical history of chronic lower extremity edema, cellulitis, hypertension, suspected DAVID presenting with increasing shortness of breath for the past few days. She feels this may have been triggered by an upper
respiratory infection for the past 2 weeks with productive cough and hoarse voice. Chest x-ray demonstrating interstitial pattern. On arrival, she was notably in distress with increased work of breathing, placed on BiPAP. She is admitted to ICU
for respiratory distress.
Acute hypoxic respiratory failure, O2 sherry 87%, placed on BiPAP
Increased work of breathing/shortness of breath
Fever
Leukocytosis
Recent outpatient treatment for cellulitis, Keflex x 5 days
Possible upper respiratory infection
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
Super morbid obesity, BMI 81
Suspected DAVID, never underwent HST
Hypertension
Palpitations
Plan
No current signs of metabolic encephalopathy or MS changes/following commands
Denies pain at this time.
Pain/sedation: Precedex added
RASS goals: 0
May need psych eval for anxiety as this is likely a component
Hemodynamically stable, not requiring pressors.
Cardiac history reviewed -- HTN
No prior ECHO for review
Resume home meds
Monitor on telemetry
Events from earlier today, dyspneic, anxious, she requested PRUNER for intubation, fortunately calmed down with anxiolysis
Started BPAP 01/02 with O2 15L which she used for 4 hrs till 7 am today (did not like BPAP but found it somewhat useful)
Transferred to ICU for NIV/precedex
ABG reviewed, paO2 is preserved despite being low
Productive cough continues, steel color
Remains afebrile and hemodyn stable
Previously on 15L, POx 93%
Empiric dexam since adm, continue for now for bronchitic symptoms
Prior history of lung disease: Super morbid obesity, suspected underlying DAVID, untreated
Continue BiPAP for now, trial off as tolerated
Supplemental O2 as indicated to maintain sats > 89%
CXR/CT reviewed indicating possible infection, though pattern is more diffuse and interstitial
Repeat CXR showing diffuse patchy infiltrates worsening from prior
Prior CT was also reviewed indicating normal parenchyma
NPO, while on NIV
Orthopedic Surgeon recommendations
Aspiration precautions, HOB > 30 degrees
Speech therapy eval can be considered if at elevated risk
GI prophylaxis if indicated for mechanical ventilation >48 hours, prior history of GERD, stress ulcer formation in the critically ill
Creat at baseline, no history of renal disease
Void trials
Follow urine output, critical I/Os
Replete electrolytes as needed
Fever and increased WBC on presentation, suspect possible upper respiratory infection
Febrile on adm up to 101F, afebrile since evening -
Continue empiric antibiotics
Micro/Cultures reviewed:
Bloodx1 so far negative 04/15/23
Sputum neg 04/16/23, neg strep/leg Ag, flu neg
Urine neg 04/15/23
MRSA positive 04-16 and in Dec 2022 (negative in Feb 2023)
Follow fever trend, WBC count
CBC stable, no signs of bleeding or coagulopathy.
DVT prophylaxis as assessed based on risk, including mechanical SCDs
Can transfuse if indicated for Hb <7, plt < 10
No prior h/o diabetes or thyroid disease
Monitor accuchecks PRN/SS coverage if needed
We will follow
Diagnostic Data
Chest X-Ray: 04/15/23- New findings concerning for mild bilateral pneumonia. Findings related to limited inspiration cannot be completely excluded. Clinical and laboratory correlation recommended.
CHEST 03/31/23- Limited study demonstrating no active cardiopulmonary disease. There is no large central pulmonary embolus. Evaluation for peripheral pulmonary embolism is limited by the patient's large size
TTE 02-27-23: very technically difficult, contrasted, LVEF 55-60%
PFT's:
Reports and relevant images were personally reviewed.
-----
Critical care time 40 mins -- this includes review of history, physical exam, medications, hemodynamic/ventilator parameters, laboratory data, imaging and discussion with house staff, pharmacy, respiratory therapy, gift shop manager, and nursing.
Subjective Dataa
Subjective Data
Date of Service:
Date of Service: April 18, 2023
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
Subjective:
transferred to icu for worsening resp distress, SOB
abg showing hypoxemia, but at 62
she does not give further ROS or subj improvement
Objective Data
Data Reviewed
Vital Signs / I&O / Oxygen:
Vital Signs
Temp Pulse Resp BP Pulse Ox
98.6 F 88 29 122/90 99
04/18/23 03:59 04/18/23 05:45 04/18/23 05:45 04/18/23 05:37 04/18/23 05:45
Intake and Output
04/17/23 04/18/23 04/19/23
06:59 06:59 06:59
Intake Total 3145 / 3145 200 / 200
Output Total 950 / 950 1300 / 1300
Balance 2195 / 2195 -1100 / -1100
SaO2 99
Physical Exam
General: Other (morbidly obese, anxious appearing)
HEENT: Normocephalic, Anicteric and Other (poor oral hygiene)
Cardiovascular: S1-S2, Regular Rhythm and Peripheral Edema (chronic LE wounds b/l with wrap)
Respiratory: Clear (decreased overall BS, due to BH) and Accessory Resp Muscle Use (with NIV on)
GI: Soft, Distended (protuberant, obese) and Non Tender
Neurology: Awake, Alert, Oriented, AO x 3, No Motor Deficits and Depressed (appearing, not answering while on NIV)
Skin: Warm and Dry
Labs/Micro/Reports
Lab Data
04/18/23 03:34
04/18/23 03:34
Laboratory Results
04/18/23
03:20
pH 7.37
pCO2 54 H
pO2 62 L
HCO3 31.2 H
O2 Delivery Level Bipap
Microbiology
04/15/23 13:43 Blood/Venous Blood Culture - Preliminary
No Growth in 48 hours- Final report to follow
04/16/23 15:48 Sputum Respiratory Culture - Preliminary
Usual Respiratory Enedelia
04/16/23 15:48 Sputum Gram Stain - Preliminary
04/15/23 22:08 Urine Urine Culture - Final
No Significant Growth
04/16/23 15:58 Nose Nasal Screen MRSA (PCR) - Final
Staph aureus MRSA
04/15/23 22:24 Urine Legionella Urinary Antigen - Final
Negative for Legionella pneumophila Serogroup 1 antigen.
A negative result does not rule out the possiblity of
Legionella infection due to other serogroups or species of
Legionella. Clinical correlation is recommended.
04/15/23 22:24 Urine Streptococcus pneumoniae Antigen (M - Final
Negative for Streptococcus pneumoniae antigen.
A negative result does not exclude infection with
Streptococcus pneumoniae. Clinical correlation is
recommended.
04/15/23 12:40 Nasal Swab Influenza Types A & B (TONE) - Final
Negative for Influenza A & B, NAAT
Negative results must be combined with clinical observations
and patient history.
Nucleic Acid Amplification test (NAAT)performed on the
[email or web address] platform.
[2023-04-18] MEDS: XOPENEX 1.25 MG INHALANT SOLUTION INH ×4 (07:41→20:04)
[2023-04-18] MEDS: APRESOLINE PO ×3 (08:07→21:46)
--- NOTE | 2023-04-18 08:52 | W.PN.HOSP.TC ---
Today's Communication/Plan
-
see bold
Assessment / Plan
Assessment / Plan
HPI: 38-year-old with history of obesity, lymphedema, multiple episodes of cellulitis, hypertension, palpitations presenting with shortness of breath.� 2 weeks ago she felt like she had cold described as productive cough and hoarse voice.� Since
that time she is also noted drainage from her legs bilaterally and was concerned that she may have had cellulitis.� She was started on Keflex which she has been on for the past 5 days.� Since then she has been having increased shortness of breath
associate with increasing cough.� She denies fevers or chills, vomiting or abdominal pain or diarrhea.� She has tightness in her chest and in her back for the past day that is constant and she thinks is from coughing.
She denies any history of lung problems including asthma or COPD.� She denies smoking, alcohol or any drugs.
She has been seeing a licensed customs broker due to occasional symptoms of palpitations and saw her licensed customs broker last week without any official diagnosis of arrhythmia.
#Sepsis (fever, tachycardia, tachypnea) secondary to community-acquired pneumonia with severe dyspnea
#Acute hypoxic respiratory failure
#History of MRSA positive sputum culture
Chest x-ray shows mild bilateral pneumonia, COVID and influenza negative
Respiratory failure multifactorial due to pneumonia and body habitus
Appreciate water mangle tender input, continue NIV and Precedex
Continue vancomycin, Zosyn, IV steroids, bronchodilators
#Anxiety
Currently on Precedex drip, IV Ativan as needed
#Bilateral lower extremity cellulitis superimposed on chronic lymphedema
Status post outpatient Keflex for 5 days
Covered with Vancomycin and Zosyn
#Essential hypertension
Currently on Precedex drip, may need to hold metoprolol, hydralazine depending on blood pressure
#Hyperkalemia
K 5.2, was 5.4
S/p Lokelma
Severe obesity due to excess calories
-Affects all aspects of care
Constipation
-Started MiraLAX
Palpitations
-Follows with cardiology outpatient, resumed metoprolol
Stage 2 buttocks pressure injury, POA
-Wound care, frequent turning
History of multiple episodes of cellulitis
DVT prophylaxis�SQ Lovenox
Full code
Updated mom at bedside 04/18
Total time spent to see the patient on the floor, examine the patient, review data and lab results, discuss treatment plan with patient, nursing staff around 51 minutes.
Physical Exam
General: Morbidly obese, no acute distress
HEENT: Normocephalic, Atraumatic, EOMI, MMM
Respiratory: Clear to Auscultation bilaterally
Cardiac: Normal S1/S2, Regular Rate and Rhythm
GI: Soft, Nontender, Nondistended, Normal Bowel Sounds
Extremities: No Clubbing, Cyanosis
Bilateral lower extremity lymphedema noted with erythema
Anticipated Discharge: > 48 hours
Subjective/Interval History
-
Date of Service: April 17, 2023
Overnight events noted, patient moved to ICU.
Objective Data
-
Labs:
Laboratory Results
04/17/23 04/17/23
05:46 06:09
WBC 23.5 H
Hgb 11.3 L
Hct 35.5 L
Plt Count 491 H
HCO3 29.3 H
Sodium 135
Potassium 5.4 H
Chloride 104
Carbon Dioxide 27
BUN 17
Creatinine 0.5 L
Glucose 120 H
Calcium 8.7
Vital Signs:
Vital Signs
Temp Pulse Resp BP Pulse Ox
98.9 F 95 26 170/100 94
04/17/23 11:05 04/17/23 15:40 04/17/23 15:40 04/17/23 08:30 04/17/23 15:40
I&O
04/16/23 04/17/23 04/18/23
06:59 06:59 06:59
Intake Total 1125 / 1125 3145 / 3145
Output Total 950 / 950
Balance 1125 / 1125 2195 / 2195
[2023-04-18] MEDS: HYDROPHOR 1 APPLIC TOPICAL (09:03)
[2023-04-18] MEDS: DESENEX/MITRAZOL/ZEASORB 1 APPLIC TOPICAL ×2 (09:04→20:40)
[2023-04-18 09:18] LABS: PT 15.5 Sec (11.4-14.6)
[2023-04-18 09:19] LABS: APTT 24.9 Sec (23.4-35.0)
--- NOTE | 2023-04-18 09:23 | PHA.VAN.FU ---
Vancomycin Assessment / Plan
- Assessment
Renal Function: Stable
WBC's are: Stable
In the past 24 hrs, patient has been: Afebrile
Concomitant Antimicrobials: Piperacillin-tazobactam
- Assessment - Therapeutic Drug Monitoring
Extrapolated Cmax (mcg/mL): 20.5
Peak level was drawn: Appropriately
Extrapolated Cmin (mcg/mL): 10.3
Trough Drawn: Appropriately
Levels were drawn: At steady state
Calculated AUC (mcg*h/mL): 357
Calculated ke: 0.1062
Calculated half life (H): 6.5
Calculated Vd (L): 98.66
Calculated Vanc CL (ml/min): 174.66
- Dosing Plan
Adjust Regimen to: Vanc 1500mg IV q8H
New Regimen Predicts: AUC (464), Peak (26.6), Trough (13.3)
- Monitoring Plan
No level(s) ordered at this time: Consider levels after 04/19/23 2200 dose.
- Follow Up
Pharmacy will continue to follow.
Vancomycin Follow UP
- -
Patient Age: 38
Patient Sex: Female
Vancomycin Day #: 4
Indication: Pulmonary/Respiratory
Requesting Provider: Dr. Smith
Pertinent Antimicrobial Allergies:
no pertinent antibiotic allergies
Height / Weight:
Height 5 ft 9 in
Actual Weight 248.8 kg
IBW in k
Adjusted BW in k
Pertinent Past Medical History: BMI ~81
- Vital Signs / Lab Results
Temp Pulse Resp BP Pulse Ox
99.4 F 74 23 131/71 98
04/18/23 07:30 04/18/23 07:50 04/18/23 07:50 04/18/23 08:07 04/18/23 08:00
Lab Results - Hematology
04/15/23 04/16/23 04/17/23
13:43 04:07 05:46
WBC 17.6 H 15.7 H 23.5 H
04/18/23
03:34
WBC 22.0 H
Lab Results - Chemistry
04/15/23 04/16/23 04/17/23
13:43 04:07 05:46
BUN 14 17 17
Creatinine 0.6 0.5 L 0.5 L
Estimated Creat Clear > 125 > 125 > 125
Albumin 3.7 3.6
04/18/23
03:34
BUN 19 H
Creatinine 0.5 L
Estimated Creat Clear > 125
Albumin
04/15/23 04/15/23
13:43 17:00
Lactic Acid 1.3 Cancelled
Microbiology Results
04/15/23 13:43 Blood Culture - Preliminary
Blood/Venous No Growth in 48 hours- Final report to follow
04/16/23 15:48 Respiratory Culture - Preliminary
Sputum Usual Respiratory Enedelia
Gram Stain - Preliminary
04/15/23 22:08 Urine Culture - Final
Urine No Significant Growth
04/16/23 15:58 Nasal Screen MRSA (PCR) - Final
Nose Staph aureus MRSA
04/15/23 22:24 Legionella Urinary Antigen - Final
Urine Negative for Legionella pneumophila Serogroup 1 antigen.
A negative result does not rule out the possiblity of
Legionella infection due to other serogroups or species of
Legionella. Clinical correlation is recommended.
Streptococcus pneumoniae Antigen (M - Final
Negative for Streptococcus pneumoniae antigen.
A negative result does not exclude infection with
Streptococcus pneumoniae. Clinical correlation is
recommended.
Therapeutic Drug Monitoring
Vancomycin Peak 17.6 ug/ml (18-26) L 04/18/23 01:00
Vancomycin Trough 13.4 ug/ml (5-20) 04/18/23 03:34
--- NOTE | 2023-04-18 09:42 | PTCARENOTE ---
report received, assessments per work list. patient moderately anxious with any stimulation. Precedex per work list. able to follow simple commands but resistant to any care. patient with strong foul body odor, purewick in place. dark reggie urine
in small amounts, incontinent of stool, has menses. complete care and wound care provided. breath sounds coarse bilaterally. NIV ventilation continues. oral membranes very dry, care provided. lower leg wound care completed, compression applied.
Truck Driver Rubbish Collector at bedside. reviewed plan of care. labs sent. cxr taken. call elmore in hand
[2023-04-18] MEDS: TOPROL XL PO (09:47)
--- NOTE | 2023-04-18 11:39 | PTCARENOTE ---
labs ordered. unable to draw from midline, no blood return. [id number] to obtain peripherally. unable. paged electric locomotive firer/fireman to attempt. Social Worker Psychiatric aware of delay in obtaining lab work
[2023-04-18] MEDS: DECADRON 4 MG IV (11:55)
[2023-04-18 12:25] LABS: Glucose - Point of Care 108 mg/dl (70-99)
--- NOTE | 2023-04-18 12:27 | PTCARENOTE ---
reassessed, lungs with expiratory wheezing. pericare done, repositioned. patient parents at bedside, labs obtained by cinema operator. results pending
[2023-04-18 12:34] LABS: NT-proBNP 302 pg/ml
[2023-04-18 12:47] LABS: Procalcitonin < 0.05 ng/ml (0.0-0.25)
[2023-04-18] MEDS: LASIX 40 MG IV (13:07)
[2023-04-18] MEDS: VANCOCIN 300 MG IV ×2 (13:57→22:50)
[2023-04-18] MEDS: VANCOCIN 300 ML IV ×2 (13:57→22:50)
--- NOTE | 2023-04-18 16:07 | PTCARENOTE ---
reassessed. large amount in response to Lasix, both captured by pure wick as well as saturated covidiens and linens. partial bath administered. linens changed. continues with moist non productive cough. NIV continues. Precedex per work list.
respiratory rate 20's at rest, tachypneic with any activity or head down for repositioning.call elmore in hand. family at bedside
[2023-04-18] MEDS: LOVENOX 60 MG SC (17:14)
--- NOTE | 2023-04-18 20:00 | PTCARENOTE ---
Patient received. Patient arouses to verbal stimulation, follows commands, denies pain. Precedex gtt infusing through midline. NIV in place, patient tachypneic. Coarse breath sounds throughout, expiratory wheezing noted. SR on monitor. Afebrile. NPO
status. Purewick in place, reggie urine noted. Patient cleaned and repositioned with lift, oral care provided. Patient care ongoing.
[2023-04-19] VITALS (25 sets, daily range): BP systolic 104–156; BP diastolic 71–118; BMI 79.9
[2023-04-19] MEDS: DECADRON 4 MG IV ×2 (00:18→10:53)
[2023-04-19] MEDS: PRECEDEX 100 IV ×7 (00:18→21:31)
[2023-04-19 00:21] LABS: Glucose - Point of Care 102 mg/dl (70-99)
--- NOTE | 2023-04-19 00:37 | PTCARENOTE ---
Patient reassessed. Precedex gtt infusing. RASS 0 to -1. NIV settings unchanged. Oral care provided. Purewick draining reggie urine. Patient repositioned, pillows placed. Patient care ongoing.
[2023-04-19] MEDS: ATIVAN 0.5 MG IV (00:51)
[2023-04-19] MEDS: ZOSYN 100 IV ×4 (02:33→19:39)
[2023-04-19] MEDS: ZOFRAN 4 MG IV (02:52)
--- NOTE | 2023-04-19 04:41 | PTCARENOTE ---
Patient reassessed. Pt cleaned, turned, repositioned, new linens. Purewick replaced. NIV settings unchanged. Precedex gtt infusing. AM labs attempted, unable to obtain - phlebotomy made aware.
[2023-04-19] MEDS: VANCOCIN 300 ML IV ×3 (05:21→21:33)
[2023-04-19] MEDS: VANCOCIN 300 MG IV ×3 (05:21→21:33)
[2023-04-19 06:19] LABS: Glucose - Point of Care 119 mg/dl (70-99)
--- NOTE | 2023-04-19 07:33 | W.PN.INTV ---
Today's Communication / Plan
Recommendations
continues on NIV with slow progress given anxiety/morbid obesity
lasix continued, good uo in last 24 hours
fever noted, recheck sputum culture
PT/OT encouraged, patient is not interested
abx continued
Assessment
-
38-year-old female with past medical history of chronic lower extremity edema, cellulitis, hypertension, suspected DAVID presenting with increasing shortness of breath for the past few days. She feels this may have been triggered by an upper
respiratory infection for the past 2 weeks with productive cough and hoarse voice. Chest x-ray demonstrating interstitial pattern. On arrival, she was notably in distress with increased work of breathing, placed on BiPAP. She is admitted to ICU
for respiratory distress.
Acute hypoxic respiratory failure, O2 sherry 87%, placed on BiPAP
Increased work of breathing/shortness of breath
Fever
Leukocytosis
Recent outpatient treatment for cellulitis, Keflex x 5 days
Possible upper respiratory infection
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
Super morbid obesity, BMI 81
Suspected DAVID, never underwent HST
Hypertension
Palpitations
Plan
No current signs of metabolic encephalopathy or MS changes/following commands
Denies pain at this time.
Pain/sedation: Precedex continued
RASS goals: 0
May need psych eval for anxiety as this is likely a component
Hemodynamically stable, not requiring pressors.
Cardiac history reviewed -- HTN
Prior ECHO showing preserved function, proBNP slightly elevated
Added IV lasix, good UO noted, continue
Resumed on home meds
Monitor on telemetry
Continues on NIV/precedex, no significant progress, limited by anxiety/morbid obesity
ABG reviewed, paO2 is preserved despite being low
Previously on 15L, POx 93%
Empiric dexam since adm, continue for now for bronchitic symptoms
Prior history of lung disease: Super morbid obesity, suspected underlying DAVID, untreated
Continue BiPAP for now, trial off as tolerated
Supplemental O2 as indicated to maintain sats > 89%
CXR/CT reviewed indicating possible infection, though pattern is more diffuse and interstitial
Repeat CXR showing diffuse patchy infiltrates worsening from prior
Prior CT was also reviewed indicating normal parenchyma
NPO, while on NIV
Gas Cutter recommendations
Aspiration precautions, HOB > 30 degrees
Speech therapy eval can be considered if at elevated risk
GI prophylaxis if indicated for mechanical ventilation >48 hours, prior history of GERD, stress ulcer formation in the critically ill
Creat at baseline, no history of renal disease
Void trials
Follow urine output, critical I/Os
Replete electrolytes as needed
Fever and increased WBC on presentation, suspect possible upper respiratory infection
Febrile on adm up to 101F, afebrile since evening -
Continue empiric antibiotics
Micro/Cultures reviewed:
Bloodx1 so far negative 04/15/23
Sputum neg 04/16/23, neg strep/leg Ag, flu neg, recheck sputum
Urine neg 04/15/23
MRSA positive 04-16 and in Dec 2022 (negative in Feb 2023)
Follow fever trend, WBC count
CBC stable, no signs of bleeding or coagulopathy.
DVT prophylaxis as assessed based on risk, including mechanical SCDs
Can transfuse if indicated for Hb <7, plt < 10
No prior h/o diabetes or thyroid disease
Monitor accuchecks PRN/SS coverage if needed
Diagnostic Data
Chest X-Ray: 04/15/23- New findings concerning for mild bilateral pneumonia. Findings related to limited inspiration cannot be completely excluded. Clinical and laboratory correlation recommended.
CHEST 03/31/23- Limited study demonstrating no active cardiopulmonary disease. There is no large central pulmonary embolus. Evaluation for peripheral pulmonary embolism is limited by the patient's large size
TTE 02-27-23: very technically difficult, contrasted, LVEF 55-60%
PFT's:
Reports and relevant images were personally reviewed.
-----
Critical care time 35 mins -- this includes review of history, physical exam, medications, hemodynamic/ventilator parameters, laboratory data, imaging and discussion with house staff, pharmacy, respiratory therapy, metal machine setter, and nursing.
Subjective Dataa
Subjective Data
Date of Service:
Date of Service: April 19, 2023
Chief Complaint: Manager Quantitative Follow Up
Subjective:
good uo result with lasix
remains on NIV
fever overnight, sputum more productive
Objective Data
Data Reviewed
Vital Signs / I&O / Oxygen:
Vital Signs
Temp Pulse Resp BP Pulse Ox
99.6 F 72 34 127/77 94
04/19/23 03:14 04/19/23 06:45 04/19/23 06:45 04/19/23 06:01 04/19/23 06:45
Intake and Output
04/18/23 04/19/23 04/20/23
06:59 06:59 06:59
Intake Total 200 / 212.9 1814.4 / 1814.4
Output Total 1300 / 1300 2950 / 2950
Balance -1100 / -1087.1 -1135.6 / -1135.6
SaO2 [NIV (Non Invasive 94
Ventilation)]
SaO2 94
Physical Exam
General: Other (morbidly obese, anxious appearing)
HEENT: Normocephalic, Anicteric and Other (poor oral hygiene)
Cardiovascular: S1-S2, Regular Rhythm and Peripheral Edema (chronic LE wounds b/l with wrap)
Respiratory: Clear (decreased overall BS, due to BH) and Accessory Resp Muscle Use (with NIV on)
GI: Soft, Distended (protuberant, obese) and Non Tender
Neurology: Awake, Alert, Oriented, AO x 3, No Motor Deficits and Depressed (appearing, not answering while on NIV)
Skin: Warm and Dry
Labs/Micro/Reports
Laboratory Results
04/18/23 04/18/23
08:15 19:28
PT 15.5 H
INR 1.20
APTT 24.9
pH Cancelled
pCO2 Cancelled
pO2 Cancelled
HCO3 Cancelled
O2 Delivery Level Cancelled
Microbiology
04/15/23 13:43 Blood/Venous Blood Culture - Preliminary
No Growth in 72 hours- Final report to follow
04/16/23 15:48 Sputum Respiratory Culture - Final
Usual Respiratory Enedelia
04/16/23 15:48 Sputum Gram Stain - Final
04/15/23 22:08 Urine Urine Culture - Final
No Significant Growth
04/16/23 15:58 Nose Nasal Screen MRSA (PCR) - Final
Staph aureus MRSA
04/15/23 22:24 Urine Legionella Urinary Antigen - Final
Negative for Legionella pneumophila Serogroup 1 antigen.
A negative result does not rule out the possiblity of
Legionella infection due to other serogroups or species of
Legionella. Clinical correlation is recommended.
04/15/23 22:24 Urine Streptococcus pneumoniae Antigen (M - Final
Negative for Streptococcus pneumoniae antigen.
A negative result does not exclude infection with
Streptococcus pneumoniae. Clinical correlation is
recommended.
[2023-04-19] MEDS: XOPENEX 1.25 MG INHALANT SOLUTION INH ×4 (07:46→20:03)
[2023-04-19] MEDS: APRESOLINE PO (07:48)
[2023-04-19] MEDS: DESENEX/MITRAZOL/ZEASORB 1 APPLIC TOPICAL ×2 (07:49→19:40)
[2023-04-19] MEDS: HYDROPHOR 1 APPLIC TOPICAL (07:49)
[2023-04-19 08:22] LABS: Hemoglobin 11.7 g/dL (12.0-16.0); Mean Corp Hgb Conc. 32.5 g/dL (33.0-37.0); Mean Corpuscular Hgb 29.7 pg (27.0-31.0); Mean Corpuscular Volume 91.4 fL (81.0-99.0); Mean Platelet Volume 9.2 fL (7.4-10.4); Platelet Count 443 10^3/uL (130-400); Red Blood Cell Count 3.94 10^6/uL (4.20-5.40); Red Cell Dist. Width 13.6 % (11.5-14.5); White Blood Cell Count 18.7 10^3/uL (4.8-10.8)
--- NOTE | 2023-04-19 08:39 | W.PN.HOSP.TC ---
Today's Communication/Plan
-
see bold
Assessment / Plan
Assessment / Plan
HPI: 38-year-old with history of obesity, lymphedema, multiple episodes of cellulitis, hypertension, palpitations presenting with shortness of breath.� 2 weeks ago she felt like she had cold described as productive cough and hoarse voice.� Since
that time she is also noted drainage from her legs bilaterally and was concerned that she may have had cellulitis.� She was started on Keflex which she has been on for the past 5 days.� Since then she has been having increased shortness of breath
associate with increasing cough.� She denies fevers or chills, vomiting or abdominal pain or diarrhea.� She has tightness in her chest and in her back for the past day that is constant and she thinks is from coughing.
She denies any history of lung problems including asthma or COPD.� She denies smoking, alcohol or any drugs.
She has been seeing a collection systems consultant due to occasional symptoms of palpitations and saw her collection systems consultant last week without any official diagnosis of arrhythmia.
#Sepsis (fever, tachycardia, tachypnea) secondary to community-acquired pneumonia with severe dyspnea
#Acute hypoxic respiratory failure
#History of MRSA positive sputum culture
Chest x-ray shows mild bilateral pneumonia, COVID and influenza negative
Respiratory failure multifactorial due to pneumonia and body habitus
Appreciate child care aide input, continue NIV and Precedex
Continue vancomycin, Zosyn, IV steroids, bronchodilators
#Anxiety
Currently on Precedex drip, IV Ativan as needed
#Food addiction
Mom reports that patient is unable to stop eating, suspect she has a psychiatric component to her overeating
Consult psychiatry
#Bilateral lower extremity cellulitis superimposed on chronic lymphedema
Status post outpatient Keflex for 5 days
Covered with Vancomycin and Zosyn
#Essential hypertension
Currently on Precedex drip, may need to hold metoprolol depending on blood pressure
#Hyperkalemia
K 5.1, was 5.2, was 5.4
S/p Lokelma
Severe obesity due to excess calories
-Affects all aspects of care
Constipation
-Started MiraLAX
Palpitations
-Follows with cardiology outpatient, resumed metoprolol
Stage 2 buttocks pressure injury, POA
-Wound care, frequent turning
History of multiple episodes of cellulitis
DVT prophylaxis�SQ Lovenox
Full code
Updated mom at bedside 04/19
Total time spent to see the patient on the floor, examine the patient, review data and lab results, discuss treatment plan with patient, nursing staff around 52 minutes.
Physical Exam
General: Morbidly obese, no acute distress
HEENT: Normocephalic, Atraumatic, EOMI, MMM
Respiratory: Clear to Auscultation bilaterally
Cardiac: Normal S1/S2, Regular Rate and Rhythm
GI: Soft, Nontender, Nondistended, Normal Bowel Sounds
Extremities: No Clubbing, Cyanosis
Bilateral lower extremity lymphedema noted with erythema
Anticipated Discharge: > 48 hours
Subjective/Interval History
-
Date of Service: April 19, 2023
No changes.
Objective Data
-
Labs:
Laboratory Results
04/19/23
07:59
WBC 18.7 H
Hgb 11.7 L
Hct 36.0 L
Plt Count 443 H
Sodium Pending
Potassium Pending
Chloride Pending
Carbon Dioxide Pending
BUN Pending
Creatinine Pending
Glucose Pending
Calcium Pending
Vital Signs:
Vital Signs
Temp Pulse Resp BP Pulse Ox
100.4 F H 78 24 129/81 914
04/19/23 07:00 04/19/23 07:51 04/19/23 07:51 04/19/23 07:48 04/19/23 07:51
I&O
01/10/0404/19/23 04/20/23
06:59 06:59 06:59
Intake Total 200 / 212.9 1814.4 / 1814.4
Output Total 1300 / 1300 2950 / 2950
Balance -1100 / -1087.1 -1135.6 / -1135.6
[2023-04-19 09:04] LABS: Blood Urea Nitrogen 21 mg/dl (7-17); Calcium 9.1 mg/dl (8.4-10.2); Carbon Dioxide 29 mmol/L (22-30); Chloride 102 mmol/L (98-107); Estimated Creatinine Clearance > 125 ml/min; Glucose 119 mg/dl (70-99); Potassium 5.1 mmol/L (3.5-5.1); Sodium 137 mmol/L (135-145); eGFR > 60.00
--- NOTE | 2023-04-19 09:13 | PTCARENOTE ---
report received, assessments per work list. patient alert,orientedX2, reorient to time easily. trialed off NIV, placed on 15 liters midflow. tolerated for 30 minutes. pulse oximeter 91-93. respiratory rate 40's. placed back on NIV prior to turning.
tolerated small sips water without overt signs aspiration. patient fatigued but able to assist with turning. dyspnea at rest, orthopnea. lungs with coarse breath sounds bilaterally. inspiratory and expiratory wheezes. oral pharyngeal suctioned for
large amount thick steel brown blood tinged sputum. monitor nsr. left midline patent. no blood return. Precedex per work list. abdomen obese, active bowel sounds. purewick in place, reggie urine. patient has menses, moderate amount bloody vaginal
drainage. wound care provided. call elmore in reach
[2023-04-19] MEDS: TOPROL XL PO (09:18)
--- NOTE | 2023-04-19 11:43 | PHA.VAN.FU ---
Vancomycin Assessment / Plan
- Assessment
Renal Function: SCR Increasing (Slightly from 0.5 to 0.7)
WBC's are: Stable
In the past 24 hrs, patient has been: Febrile (Tmax = 100.4F)
Concomitant Antimicrobials: Piperacillin-tazobactam
- Dosing Plan
Continue: Vanc 1500mg IV q8H
- Monitoring Plan
Peak Level: 04/20 at 0100
Trough Level: 04/20 at 0530
- Follow Up
Pharmacy will continue to follow.
Vancomycin Follow UP
- -
Patient Age: 38
Patient Sex: Female
Vancomycin Day #: 5
Indication: Pulmonary/Respiratory
Requesting Provider: Dr. Smith
Pertinent Antimicrobial Allergies:
no pertinent antibiotic allergies
Height / Weight:
Height 5 ft 9 in
Actual Weight 245.3 kg
IBW in k
Adjusted BW in k
Pertinent Past Medical History: BMI ~81
- Vital Signs / Lab Results
Temp Pulse Resp BP Pulse Ox
99.9 F 68 42 133/85 94
04/19/23 11:00 04/19/23 11:04 04/19/23 11:04 04/19/23 10:00 04/19/23 11:04
Lab Results - Hematology
04/17/23 04/18/23 04/19/23
05:46 03:34 07:59
WBC 23.5 H 22.0 H 18.7 H
Lab Results - Chemistry
04/17/23 04/18/23 04/18/23
05:46 03:34 19:28
BUN 17 19 H Cancelled
Creatinine 0.5 L 0.5 L Cancelled
Estimated Creat Clear > 125 > 125 Cancelled
Albumin Cancelled
04/19/23
07:59
BUN 21 H
Creatinine 0.7
Estimated Creat Clear > 125
Albumin
Microbiology Results
04/15/23 13:43 Blood Culture - Preliminary
Blood/Venous No Growth in 72 hours- Final report to follow
04/16/23 15:48 Respiratory Culture - Final
Sputum Usual Respiratory Enedelia
Gram Stain - Final
04/15/23 22:08 Urine Culture - Final
Urine No Significant Growth
04/16/23 15:58 Nasal Screen MRSA (PCR) - Final
Nose Staph aureus MRSA
Therapeutic Drug Monitoring
Vancomycin Peak 17.6 ug/ml (18-26) L 04/18/23 01:00
Vancomycin Trough 13.4 ug/ml (5-20) 04/18/23 03:34
--- NOTE | 2023-04-19 11:46 | CHAP ---
Visited briefly with Ms. Batres, who did not respond. I spoke softly at her side, offering words of comfort, support, and trust in God.
--- NOTE | 2023-04-19 12:07 | PTCARENOTE ---
patient reassessed, remains calm on current Precedex. wheezing persistent. taken off NIV@1200 and placed on 15 liters midflow. harsh nonproductive cough. no sputum production at this time. Parents at bedside, reviewed plan of care, hospitalist
updated at bedside, Hospitalist updated parents at bedside
--- NOTE | 2023-04-19 12:49 | CS.PSYCHR ---
Consult Summary - Psychiatry
-
Chart reviewed. Psychiatry consult secondary to concern for food addiction and parents asking for help. 38-year-old with history of obesity, lymphedema, multiple episodes of cellulitis, hypertension and palpitations admitted on 04/15/2023 for
shortness of breath.� Patient states she is willing to talk to psychiatry but would like team to come back because she is too physically tired at this time. I spoke to both parents at length who express concern for untreated depression, ADD, and
food addiction. They state she has been considering seeing bariatric surgeon (BMI is 79.9).
Past psych history- diagnosed with ADD as a child. Stopped adderall on her own at age 15 bc she felt 'hyperfocused' and didn't like that. She has had no other mental health treatment. parents suspect depression.
D&A- denies
PMH- as noted above
Social history- lives with both parents. 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 did not know she was secondary to obesity and delivered a baby 8 years ago. gave up baby to open adoption. Still in her life.
A/P- 38 yo female with morbid obesity, concern for food addiction and possible depression with history of ADD. Will have psych team come back to assess patient when she feels well enough for interview. Will likely benefit from outpatient mental
health services.
--- NOTE | 2023-04-19 16:12 | PTCARENOTE ---
Addendum entered by Kiah Villegas RN 04/19/23 17:35:
tolerated midflow for 45 minutes. back on NIV, pm care provided, repositioned. call elmore in reach
Original Note:
reassessed. family at bedside. off NIV, on 15 liters midflow. tolerating small amounts clear fluids. lung sounds unchanged. calm with current precedex dose/rate
[2023-04-19] MEDS: LOVENOX 60 MG SC (17:12)
--- NOTE | 2023-04-19 19:58 | PTCARENOTE ---
Received patient. Arousable to voice, follows commands. Precedex gtt infusing through midline. Denies pain. SR on monitor, afebrile. NIV: 20/10, 50% - satting mid 90s. NIV removed for patient to have clear liquids, tolerating 15L midflow, satting
mid 90s still. Expiratory wheezing noted upon auscultation. Oral care provided, mouth suctioned. Purewick in place, reggie urine noted. Patient repositioned in bed. Tolerating clear liquids, pt had ensure and gelatin. meds given. Pt updated on plan
of care, Patient care ongoing.
[2023-04-20] VITALS (23 sets, daily range): BP systolic 110–154; BP diastolic 64–98; BMI 80.1
[2023-04-20 00:10] LABS: Vancomycin Peak 25.3 ug/ml (18-26)
--- NOTE | 2023-04-20 00:36 | PTCARENOTE ---
Patient reassessed. Cleaned and repositioned, new linens. Mask removed at times for sips of water. VSS, NIV settings unchanged. Patient care ongoing.
[2023-04-20] MEDS: ZOSYN 100 IV ×4 (01:03→19:55)
[2023-04-20] MEDS: DECADRON 4 MG IV ×3 (01:03→23:22)
[2023-04-20] MEDS: PRECEDEX 100 IV ×5 (01:03→17:19)
--- NOTE | 2023-04-20 05:03 | PTCARENOTE ---
Patient reassessed. Alert and oriented x3. Precedex gtt infusing. NIV settings unchanged, mask removed frequently for sips of water. Purewick remains in place. Patient repositioned in bed, oral care provided. Phlebotomy contacted to obtain AM labs.
Patient care ongoing.
[2023-04-20 05:51] LABS: Hematocrit 34.6 % (37.0-47.0); Hemoglobin 11.1 g/dL (12.0-16.0); Mean Corp Hgb Conc. 32.1 g/dL (33.0-37.0); Mean Corpuscular Volume 90.3 fL (81.0-99.0); Mean Platelet Volume 9.2 fL (7.4-10.4); Platelet Count 456 10^3/uL (130-400); Red Blood Cell Count 3.83 10^6/uL (4.20-5.40); Red Cell Dist. Width 13.7 % (11.5-14.5); White Blood Cell Count 17.4 10^3/uL (4.8-10.8)
[2023-04-20] MEDS: VANCOCIN 300 MG IV ×3 (05:53→23:22)
[2023-04-20] MEDS: VANCOCIN 300 ML IV ×3 (05:53→23:22)
[2023-04-20 06:26] LABS: Blood Urea Nitrogen 23 mg/dl (7-17); Calcium 9.2 mg/dl (8.4-10.2); Carbon Dioxide 33 mmol/L (22-30); Chloride 96 mmol/L (98-107); Estimated Creatinine Clearance > 125 ml/min; Glucose 143 mg/dl (70-99); Magnesium 2.4 mg/dl (1.6-2.3); Phosphorus 4.4 mg/dl (2.5-4.5); Sodium 137 mmol/L (135-145); eGFR > 60.00
[2023-04-20 06:30] LABS: Potassium 5.2 mmol/L (3.5-5.1)
[2023-04-20 06:33] LABS: Vancomycin Trough 10.5 ug/ml (5-20)
--- NOTE | 2023-04-20 07:08 | W.PN.HOSP.TC ---
Today's Communication/Plan
-
To remain on NIV as per cellar pumper and pulmonary management.
Continue IV antibiotic/dexamethasone at 4 mg every 12 bronchodilators
Will try and keep metoprolol at low dosage given bronchospasm
Psychiatry will try and evaluate further once patient is more awake and interactive
Assessment / Plan
Assessment / Plan
HPI: 38-year-old with history of obesity, lymphedema, multiple episodes of cellulitis, hypertension, palpitations presenting with shortness of breath.� 2 weeks ago she felt like she had cold described as productive cough and hoarse voice.� Since
that time she is also noted drainage from her legs bilaterally and was concerned that she may have had cellulitis.� She was started on Keflex which she has been on for the past 5 days.� Since then she has been having increased shortness of breath
associate with increasing cough.� She denies fevers or chills, vomiting or abdominal pain or diarrhea.� She has tightness in her chest and in her back for the past day that is constant and she thinks is from coughing.
She denies any history of lung problems including asthma or COPD.� She denies smoking, alcohol or any drugs.
She has been seeing a operations vice president due to occasional symptoms of palpitations and saw her operations vice president last week without any official diagnosis of arrhythmia.
#Sepsis (fever, tachycardia, tachypnea) secondary to community-acquired pneumonia with severe dyspnea
#Acute hypoxic respiratory failure
#History of MRSA positive sputum culture
Chest x-ray shows mild bilateral pneumonia, COVID and influenza negative
Respiratory failure multifactorial due to pneumonia and body habitus
Appreciate cellar pumper input, continue NIV and Precedex
Continue vancomycin, Zosyn, IV steroids, bronchodilators
#Anxiety
Currently on Precedex drip, IV Ativan as needed
#Food addiction
Mom reports that patient is unable to stop eating, suspect she has a psychiatric component to her overeating
Consult psychiatry/will come back and see when patient more awake and able to give further interaction
#Bilateral lower extremity cellulitis superimposed on chronic lymphedema
Status post outpatient Keflex for 5 days
Covered with Vancomycin and Zosyn
#Essential hypertension
Currently on Precedex drip, may need to hold metoprolol depending on blood pressure
#Hyperkalemia
K 5.1, was 5.2, was 5.4
S/p Lokelma
Severe obesity due to excess calories
-Affects all aspects of care
Constipation
-Started MiraLAX
Palpitations
-Follows with cardiology outpatient, resumed metoprolol
Stage 2 buttocks pressure injury, POA
-Wound care, frequent turning
History of multiple episodes of cellulitis
DVT prophylaxis�SQ Lovenox
Full code
Updated mom at bedside 04/19
Total time spent to see the patient on the floor, examine the patient, review data and lab results, discuss treatment plan with patient, nursing staff around 52 minutes.
Physical Exam
General: Morbidly obese, no acute distress
HEENT: Normocephalic, Atraumatic, EOMI, MMM
Respiratory: Clear to Auscultation bilaterally
Cardiac: Normal S1/S2, Regular Rate and Rhythm
GI: Soft, Nontender, Nondistended, Normal Bowel Sounds
Extremities: No Clubbing, Cyanosis
Bilateral lower extremity lymphedema noted with erythema
Anticipated Discharge: > 48 hours
Subjective/Interval History
-
Date of Service: April 20, 2023
Remains sedated on Precedex on NIV overnight
Objective Data
-
Labs:
Laboratory Results
04/20/23
05:26
WBC 17.4 H
Hgb 11.1 L
Hct 34.6 L
Plt Count 456 H
Sodium 137
Potassium 5.2 H
Chloride 96 L
Carbon Dioxide 33 H
BUN 23 H
Creatinine 0.6
Glucose 143 H
Calcium 9.2
Vital Signs:
Vital Signs
Temp Pulse Resp BP Pulse Ox
97.9 F 59 30 141/92 97
04/20/23 03:10 04/20/23 06:30 04/20/23 06:30 04/20/23 06:00 04/20/23 06:30
I&O
04/19/23 04/20/23 04/21/23
06:59 06:59 06:59
Intake Total 1814.4 / 1840.1 2516.8 / 2516.8
Output Total 2950 / 2950 2200 / 2200
Balance -1135.6 / -1109.9 316.8 / 316.8
Review of Systems
-
Unable to obtain full review of systems at this time due to: Patient Intubation (niv) and Patient Non-verbal
Constitutional: Reports Fever (Low-grade temperature elevation), Fatigue and Weakness
Respiratory: Reports Trouble Breathing
Cardiac: Reports No Symptoms
Abdomen/GI: Reports No Symptoms
Psych: Reports Depressed
Physical Exam
-
General: Respiratory Distress and Morbidly Obese (Super morbidly obese)
HEENT: Normocephalic
Respiratory: Decreased Breath Sounds
Cardiac: Regular Rhythm
GI: Soft, Nontender and Nondistended
Neuro: Awake and Nonfocal/Grossly Intact
Psych: Depressed
Data Reviewed
-
Total Time Spent with Patient (in minutes): 56
Diagnostic Radiology: Report Reviewed by me (chest x-ray shows mild left lower lobe infiltrate)
Labs: Labs Reviewed by me
--- NOTE | 2023-04-20 07:36 | W.PN.INTV ---
Today's Communication / Plan
Recommendations
O2
NIV
Atbs
CS
Assessment
-
38-year-old female with past medical history of chronic lower extremity edema, cellulitis, hypertension, suspected DAVID presenting with increasing shortness of breath for the past few days. She feels this may have been triggered by an upper
respiratory infection for the past 2 weeks with productive cough and hoarse voice. Chest x-ray demonstrating interstitial pattern. On arrival, she was notably in distress with increased work of breathing, placed on BiPAP. She is admitted to ICU
for respiratory distress.
Acute hypoxic respiratory failure, O2 sherry 87%, placed on BiPAP
Increased work of breathing/shortness of breath
Fever
Leukocytosis
Recent outpatient treatment for cellulitis, Keflex x 5 days
Possible upper respiratory infection
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
Super morbid obesity, BMI 81
Suspected DAVID, never underwent HST
Hypertension
Palpitations
Plan
No current signs of metabolic encephalopathy or MS changes/following commands
Denies pain at this time.
Pain/sedation: Precedex continued
RASS goals: 0
Hemodynamically stable, not requiring pressors.
Cardiac history reviewed -- HTN
Prior ECHO showing preserved function, proBNP slightly elevated
Resumed on home meds
Monitor on telemetry
Continues on NIV/precedex
Able to do O2 NC for about 30 min on 04-19
This morning so far 2 h till time of rounds, comfortable
Return to NIV as needed and overnight
Advised to comply to NIV
ABG reviewed, paO2 is preserved despite being low
Previously on 15L, POx 93%
Empiric dexam since adm, continue for now for bronchitic symptoms
Prior history of lung disease: Super morbid obesity, suspected underlying DAVID, untreated
Continue BiPAP for now, trial off as tolerated
Supplemental O2 as indicated to maintain sats > 89%
CXR/CT reviewed indicating possible infection, though pattern is more diffuse and interstitial
Repeat CXR showing diffuse patchy infiltrates worsening from prior
Prior CT was also reviewed indicating normal parenchyma
NPO, while on NIV
Agency Manager recommendations
Aspiration precautions, HOB > 30 degrees
Speech therapy eval can be considered if at elevated risk
GI prophylaxis if indicated for mechanical ventilation >48 hours, prior history of GERD, stress ulcer formation in the critically ill
Creat at baseline, no history of renal disease
Void trials
Follow urine output, critical I/Os
Replete electrolytes as needed
Fever and increased WBC on presentation, suspect possible upper respiratory infection
Febrile on adm up to 101F, afebrile since evening 04-15
Continue empiric antibiotics: zosyn/vancomycin
Micro/Cultures reviewed:
Bloodx1 so far negative 04/15/23
Sputum neg 04/16/23, neg strep/leg Ag, flu neg, recheck sputum
Urine neg 04/15/23
MRSA positive 04-16 and in Dec 2022 (negative in Feb 2023)
Follow fever trend, WBC count
CBC stable, no signs of bleeding or coagulopathy.
DVT prophylaxis as assessed based on risk, including mechanical SCDs
Can transfuse if indicated for Hb <7, plt < 10
No prior h/o diabetes or thyroid disease
Monitor accuchecks PRN/SS coverage if needed
D/w MDT
Critical care time: 35 min
Diagnostic Data
CXR 04-18-23 c/w below, underpenetrated poor quality film but seemingly worse bilat infiltrates
Chest X-Ray: 04/15/23- New findings concerning for mild bilateral pneumonia. Findings related to limited inspiration cannot be completely excluded. Clinical and laboratory correlation recommended.
CHEST 03/31/23- Limited study demonstrating no active cardiopulmonary disease. There is no large central pulmonary embolus. Evaluation for peripheral pulmonary embolism is limited by the patient's large size
TTE 02-27-23: very technically difficult, contrasted, LVEF 55-60%
Subjective Dataa
Subjective Data
Date of Service:
Date of Service: April 20, 2023
Chief Complaint: Assistant Commissioner Follow Up
Subjective:
No major events reported overnight
Able to use nasal cannula yesterday for up to 2 hours
Currently on NIV
Reports improvement of dyspnea and expectoration of secretions
Review of Systems
General: Fever (n), Sweats (n), Chills (n) and Satisfactory Appetite (n)
HEENT: Epistaxis (n) and Dysphagia (n)
Cardiopulmonary: Dyspnea, Cough, Sputum Production (trace), Wheezing (n) and Hemoptysis (n)
GI: Abdominal Pain (n), Nausea (n) and Vomiting (n)
Neuro: Weakness
Objective Data
Data Reviewed
Vital Signs / I&O / Oxygen:
Vital Signs
Temp Pulse Resp BP Pulse Ox
98.0 F 59 30 141/92 97
04/20/23 07:00 04/20/23 06:30 04/20/23 06:30 04/20/23 06:00 04/20/23 06:30
Intake and Output
04/19/23 04/20/23 04/21/23
06:59 06:59 06:59
Intake Total 1814.4 / 1840.1 2516.8 / 2516.8
Output Total 2950 / 2950 2200 / 2200
Balance -1135.6 / -1109.9 316.8 / 316.8
SaO2 [NIV (Non Invasive 96
Ventilation)]
SaO2 97
Nasal Cannula flow liters per 15
minute
Physical Exam
General: Respiratory Distress and Other (morbidly obese, anxious appearing)
HEENT: Normocephalic, Anicteric, Moist Mucous Membranes and Other (poor oral hygiene)
Cardiovascular: S1-S2, Regular Rhythm, Murmur (n), JVD, Peripheral Edema (chronic LE wounds b/l with wrap) and Calf Tenderness (n)
Respiratory: Clear (decreased overall BS, due to BH), Wheeze (n), Rhonchi, Accessory Resp Muscle Use (with NIV on) and Stridor (n)
GI: Soft, Distended (protuberant, obese) and Non Tender
Neurology: Awake, Alert, Oriented, AO x 3, No Motor Deficits and Depressed (appearing, not answering while on NIV)
Skin: Warm and Dry
Labs/Micro/Reports
Lab Data
04/20/23 05:26
04/20/23 05:26
Microbiology
04/19/23 12:30 Sputum Gram Stain - Preliminary
04/15/23 13:43 Blood/Venous Blood Culture - Preliminary
No Growth in 4 days- Final report to follow
04/16/23 15:48 Sputum Respiratory Culture - Final
Usual Respiratory Enedelia
04/16/23 15:48 Sputum Gram Stain - Final
04/15/23 22:08 Urine Urine Culture - Final
No Significant Growth
04/16/23 15:58 Nose Nasal Screen MRSA (PCR) - Final
Staph aureus MRSA
[2023-04-20] MEDS: XOPENEX 1.25 MG INHALANT SOLUTION INH ×4 (07:37→20:13)
[2023-04-20] MEDS: TOPROL XL 25 MG PO (07:51)
--- NOTE | 2023-04-20 09:15 | PHA.VAN.FU ---
Vancomycin Assessment / Plan
- Assessment
Renal Function: Stable
WBC's are: Trending Down
In the past 24 hrs, patient has been: Afebrile
Concomitant Antimicrobials: Piperacillin/Tazobactam
- Assessment - Therapeutic Drug Monitoring
Extrapolated Cmax (mcg/mL): 25.3
Peak level was drawn: Less than 1 hour after previous dose
Extrapolated Cmin (mcg/mL): 10.5
Trough Drawn: Appropriately
Levels were drawn: At steady state
Calculated AUC (mcg*h/mL): 430
Calculated ke: 0.15
Calculated half life (H): 4.5
Calculated Vd (L): 68.5
Calculated Vanc CL (ml/min): 174
- Dosing Plan
Continue: 1500mg Q8H
Dosing Comments: Peak was drawn less than an hour after dose was completed
- Monitoring Plan
No level(s) ordered at this time: Consider levels in next few days
- Follow Up
Pharmacy will continue to follow.
Vancomycin Follow UP
- -
Patient Age: 38
Patient Sex: Female
Vancomycin Day #: 6
Indication: Pulmonary/Respiratory
Requesting Provider: Dr. Smith
Pertinent Antimicrobial Allergies:
no pertinent antibiotic allergies
Height / Weight:
Height 5 ft 9 in
Actual Weight 246 kg
IBW in k
Adjusted BW in k
Pertinent Past Medical History: BMI ~81
- Vital Signs / Lab Results
Temp Pulse Resp BP Pulse Ox
98.0 F 70 39 140/78 95
04/20/23 07:00 04/20/23 07:51 04/20/23 07:38 04/20/23 07:51 04/20/23 08:00
Lab Results - Hematology
04/18/23 04/19/23 04/20/23
03:34 07:59 05:26
WBC 22.0 H 18.7 H 17.4 H
Lab Results - Chemistry
04/18/23 04/18/23 04/19/23
03:34 19:28 07:59
BUN 19 H Cancelled 21 H
Creatinine 0.5 L Cancelled 0.7
Estimated Creat Clear > 125 Cancelled > 125
Albumin Cancelled
04/20/23
05:26
BUN 23 H
Creatinine 0.6
Estimated Creat Clear > 125
Albumin
Microbiology Results
04/19/23 12:30 Gram Stain - Preliminary
Sputum
04/15/23 13:43 Blood Culture - Preliminary
Blood/Venous No Growth in 4 days- Final report to follow
04/16/23 15:48 Respiratory Culture - Final
Sputum Usual Respiratory Enedelia
Gram Stain - Final
Therapeutic Drug Monitoring
Vancomycin Peak Cancelled 04/20/23 01:00
Vancomycin Trough 10.5 ug/ml (5-20) 04/20/23 05:26
[2023-04-20] MEDS: HYDROPHOR 1 APPLIC TOPICAL (10:50)
[2023-04-20] MEDS: DESENEX/MITRAZOL/ZEASORB 1 APPLIC TOPICAL ×2 (10:50→19:56)
--- NOTE | 2023-04-20 14:12 | W.PN.UPDATE ---
Update Note
Progress Note Update
Pt seen, chart reviewed. Pt admitted with pneumonia, sepsis. Pt morbidly obese, with BMI of 80, weighing 246 kg on admission. Pt states she compulsively eats throughout the day, mostly junk food/snacks. She denies discreet binge episodes, denies
any purging behaviors. Pt appears unable to identify feelings that trigger compulsive eating, is detached, states she feels 'blah.' Pt reports diagnosis of ADHD and was on Ritalin and Adderall from childhood, last took a stimulant in 2002. Pt
denies any other psychiatric history. Pt denies feeling significantly depressed or anxious. She mainly c/o feeling weak.
MSE: awake, alert, with blunted affect, appears weak, no acute distress. Pt denies significant depression. Insight is limited regarding eating pattern
Imp: Compulsive over-eating, R/o Binge Eating Disorder- though pt denies actual binge eating. Severe morbid obesity
Rec: Outpatient treatment when medically stable; pt would likely need to seek a specialized treatment program
--- NOTE | 2023-04-20 14:18 | PTCARENOTE ---
Patient received in AM with assessment as noted. Continues lightly sedated with Precedex infusing at 0.2 mcg/kg/hr and awake and oriented. Affect calm. NSR on monitor. Afebrile. B/P's stable. Lungs decreased through out, otherwise coarse with
scattered exp wheezes. Received on NIV 20/10, Fio2 50% but at 0800 switched to 15L midflow with sao2 maintained >95% until she was returned to prior NIV settings at 1200 in order to tolerate laying flat for wound care. Returned to 15 L midflow and
then lowered to 13 L at 1400 with Sao2 continuing >94%. Tolerating cl liq diet. No bowel movement today. Hanh blood tinged urine draining via Pure wick catheter. Family into visit and updated to patient condition. Patient currently in bed with call
ramírez and telephone in reach.
--- NOTE | 2023-04-20 15:46 | CM ---
CM following re: discharge planning.
Discussed in rounds, reviewed pt's chart, met with pt.
Pt reports she lives with her mother and pt described herself as independent in all areas COMPTROLLER, mother helps with care.
CM informed by RN that pt's mother expressed her concerns regarding her ability to continue providing care to the pt at home. Pt expressed her disappointed feelings. CM to discuss it in details with pt's mother and will set up all necessary VN
services
D/C plan: home with probably VN and family support.
CM will follow wit discharge plan updates as hospitalization progresses
[2023-04-20] MEDS: LOVENOX 60 MG SC (17:19)
[2023-04-21] VITALS (27 sets, daily range): BP systolic 107–163; BP diastolic 54–122; PULSE 84–90; O2SAT 97–98; BMI 79.5
--- NOTE | 2023-04-21 01:00 | PTCARENOTE ---
Pt placed back on non invasive ventilator at HS. Pt tolerating vent settings satting at 98% pulse ox. Precedex gtt turned off. VSS
[2023-04-21] MEDS: ZOSYN 100 IV ×4 (03:09→20:38)
[2023-04-21] MEDS: VANCOCIN 300 ML IV ×3 (06:26→22:24)
[2023-04-21] MEDS: VANCOCIN 300 MG IV ×3 (06:26→22:24)
[2023-04-21 06:32] LABS: Hemoglobin 10.6 g/dL (12.0-16.0); Mean Corp Hgb Conc. 31.2 g/dL (33.0-37.0); Mean Corpuscular Hgb 29.3 pg (27.0-31.0); Mean Corpuscular Volume 93.9 fL (81.0-99.0); Mean Platelet Volume 9.4 fL (7.4-10.4); Platelet Count 442 10^3/uL (130-400); Red Blood Cell Count 3.62 10^6/uL (4.20-5.40); Red Cell Dist. Width 13.2 % (11.5-14.5); White Blood Cell Count 14.5 10^3/uL (4.8-10.8)
--- NOTE | 2023-04-21 07:04 | W.PN.HOSP.TC ---
Today's Communication/Plan
-
Seem to tolerate nasal cannula throughout most of the day yesterday/to continue attempts today
NIV nightly
Remains sedated this morning on Precedex
Continues on low-dose dexamethasone every 12
Vancomycin and Zosyn for multifocal pneumonia
Psychiatry will follow as outpatient in regards to eating disorder
Assessment / Plan
Assessment / Plan
HPI: 38-year-old with history of obesity, lymphedema, multiple episodes of cellulitis, hypertension, palpitations presenting with shortness of breath.� 2 weeks ago she felt like she had cold described as productive cough and hoarse voice.� Since
that time she is also noted drainage from her legs bilaterally and was concerned that she may have had cellulitis.� She was started on Keflex which she has been on for the past 5 days.� Since then she has been having increased shortness of breath
associate with increasing cough.� She denies fevers or chills, vomiting or abdominal pain or diarrhea.� She has tightness in her chest and in her back for the past day that is constant and she thinks is from coughing.
She denies any history of lung problems including asthma or COPD.� She denies smoking, alcohol or any drugs.
She has been seeing a sample box maker due to occasional symptoms of palpitations and saw her sample box maker last week without any official diagnosis of arrhythmia.
#Sepsis (fever, tachycardia, tachypnea) secondary to community-acquired pneumonia with severe dyspnea
#Acute hypoxic respiratory failure
#History of MRSA positive sputum culture
Chest x-ray shows mild bilateral pneumonia, COVID and influenza negative
Respiratory failure multifactorial due to pneumonia and body habitus
Appreciate airport duty manager input, continue NIV and Precedex
Continue vancomycin, Zosyn, IV steroids, bronchodilators
#Anxiety
Currentlly Precedex, IV Ativan as needed
#Food addiction
Mom reports that patient is unable to stop eating, suspect she has a psychiatric component to her overeating
Consult psychiatry/again came back and saw yesterday and no active issues other than will need to address as outpatient her apparent eating disorder
#Bilateral lower extremity cellulitis superimposed on chronic lymphedema
Status post outpatient Keflex for 5 days
Covered with Vancomycin and Zosyn
#Essential hypertension
Precedex drip, may need to hold metoprolol depending on blood pressure
#Hyperkalemia
K 5.1, was 5.2, was 5.4
S/p Lokelma
Severe obesity due to excess calories
-Affects all aspects of care
Constipation
-Started MiraLAX
Palpitations
-Follows with cardiology outpatient, resumed metoprolol
Stage 2 buttocks pressure injury, POA
-Wound care, frequent turning
History of multiple episodes of cellulitis
DVT prophylaxis�SQ Lovenox
Full code
Updated mom at bedside 04/19
Total time spent to see the patient on the floor, examine the patient, review data and lab results, discuss treatment plan with patient, nursing staff around 52 minutes.
Physical Exam
General: Morbidly obese, no acute distress
HEENT: Normocephalic, Atraumatic, EOMI, MMM
Respiratory: Clear to Auscultation bilaterally
Cardiac: Normal S1/S2, Regular Rate and Rhythm
GI: Soft, Nontender, Nondistended, Normal Bowel Sounds
Extremities: No Clubbing, Cyanosis
Bilateral lower extremity lymphedema noted with erythema
Anticipated Discharge: 24 - 48 hours
Subjective/Interval History
-
Date of Service: April 21, 2023
NIV overnight without event
Objective Data
-
Labs:
Laboratory Results
04/21/23
06:18
WBC 14.5 H
Hgb 10.6 L
Hct 34.0 L
Plt Count 442 H
Sodium Pending
Potassium Pending
Chloride Pending
Carbon Dioxide Pending
BUN Pending
Creatinine Pending
Glucose Pending
Calcium Pending
Vital Signs:
Vital Signs
Temp Pulse Resp BP Pulse Ox
98.6 F 67 28 132/76 96
04/20/23 23:14 04/21/23 06:00 04/21/23 06:00 04/21/23 06:00 04/21/23 06:00
I&O
04/20/23 04/21/23 04/22/23
06:59 06:59 06:59
Intake Total 2516.8 / 2542.5 2727.4 / 2727.4
Output Total 2200 / 2200 1375 / 1375
Balance 316.8 / 342.5 1352.4 / 1352.4
Review of Systems
-
History Source: Patient
Constitutional: Reports Fatigue
Respiratory: Reports Trouble Breathing
Cardiac: Reports No Symptoms
Abdomen/GI: Reports No Symptoms
Physical Exam
-
General: Morbidly Obese
HEENT: Normocephalic
Respiratory: Decreased Breath Sounds
Cardiac: Regular Rhythm
GI: Soft and Nontender
Musculoskeletal: No Edema
Neuro: Awake and Nonfocal/Grossly Intact
Psych: Depressed
Data Reviewed
-
Total Time Spent with Patient (in minutes): 56
Diagnostic Radiology: Report Reviewed by me (Last chest x-ray performed on 18 April showed increased bilateral opacities)
Labs: Labs Reviewed by me (Leukocytosis is trending down)
[2023-04-21 07:10] LABS: Blood Urea Nitrogen 22 mg/dl (7-17); Calcium 8.9 mg/dl (8.4-10.2); Carbon Dioxide 36 mmol/L (22-30); Chloride 96 mmol/L (98-107); Estimated Creatinine Clearance > 125 ml/min; Glucose 130 mg/dl (70-99); Magnesium 2.2 mg/dl (1.6-2.3); Potassium 5.2 mmol/L (3.5-5.1); Sodium 134 mmol/L (135-145); eGFR > 60.00
[2023-04-21] MEDS: XOPENEX 1.25 MG INHALANT SOLUTION INH ×4 (07:21→19:41)
--- NOTE | 2023-04-21 07:31 | W.PN.INTV ---
Today's Communication / Plan
Recommendations
O2
BPAP
CS
Atbs
Assessment
-
38-year-old female with past medical history of chronic lower extremity edema, cellulitis, hypertension, suspected DAVID presenting with increasing shortness of breath for the past few days. She feels this may have been triggered by an upper
respiratory infection for the past 2 weeks with productive cough and hoarse voice. Chest x-ray demonstrating interstitial pattern. On arrival, she was notably in distress with increased work of breathing, placed on BiPAP. She is admitted to ICU
for respiratory distress.
Acute hypoxic respiratory failure, O2 sherry 87%, placed on BiPAP
Increased work of breathing/shortness of breath
Fever
Leukocytosis
Recent outpatient treatment for cellulitis, Keflex x 5 days
Possible upper respiratory infection
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
Super morbid obesity, BMI 81
Suspected DAVID, never underwent HST
Hypertension
Palpitations
Plan
No current signs of metabolic encephalopathy or MS changes/following commands
Denies pain at this time.
Pain/sedation: Precedex discontinued
RASS goals: 0
Hemodynamically stable, not requiring pressors.
Cardiac history reviewed -- HTN
Prior ECHO showing preserved function, proBNP slightly elevated
Resumed on home meds
Monitor on telemetry
Continues on NIV: currently qhs at 20/10
Now able to do O2 NC during daytime
for about 30 min on 04-19
Currently on O2 15L, POx 95%
Will resume BPAP on night of - at 20/10 with O2 8L, titrate for comfort and POx>=90%
If tolerated NIV will return to IMU
ABG reviewed, paO2 is preserved despite being low
Previously on 15L, POx 93%
Empiric dexam since adm, continue for now for bronchitic symptoms
Prior history of lung disease: Super morbid obesity, suspected underlying DAVID, untreated
Continue BiPAP for now, trial off as tolerated
Supplemental O2 as indicated to maintain sats > 89%
CXR/CT reviewed indicating possible infection, though pattern is more diffuse and interstitial
Repeat CXR showing diffuse patchy infiltrates worsening from prior
Prior CT was also reviewed indicating normal parenchyma
Cord Maker recommendations
Aspiration precautions, HOB > 30 degrees
Speech therapy eval can be considered if at elevated risk
GI prophylaxis if indicated for mechanical ventilation >48 hours, prior history of GERD, stress ulcer formation in the critically ill
Creat at baseline, no history of renal disease
Void trials
Follow urine output, critical I/Os
Replete electrolytes as needed
Fever and increased WBC on presentation, suspect possible upper respiratory infection
Febrile on adm up to 101F, afebrile since evening 04-15
Continue empiric antibiotics: zosyn/vancomycin
Micro/Cultures reviewed:
Bloodx1 so far negative 04/15/23
Sputum neg 04/16/23, neg strep/leg Ag, flu neg, recheck sputum
Urine neg 04/15/23
MRSA positive 04-16 and in Dec 2022 (negative in Feb 2023)
Follow fever trend, WBC count
CXR 04-22
CBC stable, no signs of bleeding or coagulopathy.
DVT prophylaxis as assessed based on risk, including mechanical SCDs
Can transfuse if indicated for Hb <7, plt < 10
No prior h/o diabetes or thyroid disease
Monitor accuchecks PRN/SS coverage if needed
D/w MDT
Critical care time: 35 min
Diagnostic Data
CXR 04-18-23 c/w below, underpenetrated poor quality film but seemingly worse bilat infiltrates
Chest X-Ray: 04/15/23- New findings concerning for mild bilateral pneumonia. Findings related to limited inspiration cannot be completely excluded. Clinical and laboratory correlation recommended.
CHEST 03/31/23- Limited study demonstrating no active cardiopulmonary disease. There is no large central pulmonary embolus. Evaluation for peripheral pulmonary embolism is limited by the patient's large size
TTE 02-27-23: very technically difficult, contrasted, LVEF 55-60%
Subjective Dataa
Subjective Data
Date of Service:
Date of Service: April 21, 2023
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
Subjective:
No major events reported
Continue on NIV overnight
Review of Systems
General: Fever (n), Sweats (n), Chills (n) and Satisfactory Appetite
HEENT: Epistaxis (n) and Dysphagia (n)
Cardiopulmonary: Dyspnea, Cough, Sputum Production (decreasing), Wheezing, Edema (GEOVANNI) and Hemoptysis (n)
GI: Abdominal Pain, Nausea and Vomiting
Neuro: Weakness
Objective Data
Data Reviewed
Vital Signs / I&O / Oxygen:
Vital Signs
Temp Pulse Resp BP Pulse Ox
98.6 F 78 26 134/73 92
04/20/23 23:14 04/21/23 07:25 04/21/23 07:25 04/21/23 07:00 04/21/23 07:25
Intake and Output
04/20/23 04/21/23 04/22/23
06:59 06:59 06:59
Intake Total 2516.8 / 2542.5 2727.4 / 2727.4
Output Total 2200 / 2200 1375 / 1375
Balance 316.8 / 342.5 1352.4 / 1352.4
SaO2 [NIV (Non Invasive 94
Ventilation)]
SaO2 92
Nasal Cannula flow liters per 12
minute
Physical Exam
General: Respiratory Distress and Other (morbidly obese, anxious appearing)
HEENT: Normocephalic, Anicteric, Moist Mucous Membranes and Other (poor oral hygiene)
Cardiovascular: S1-S2, Regular Rhythm, Murmur (n), JVD, Peripheral Edema (chronic LE wounds b/l with wrap) and Calf Tenderness (n)
Respiratory: Clear (decreased overall BS, due to BH), Wheeze (n), Rhonchi, Accessory Resp Muscle Use (with NIV on) and Stridor (n)
GI: Soft, Distended (protuberant, obese) and Non Tender
Neurology: Awake, Alert, Oriented, AO x 3, No Motor Deficits and Depressed (appearing, not answering while on NIV)
Skin: Warm and Dry
Labs/Micro/Reports
Lab Data
04/21/23 06:18
04/21/23 06:18
Microbiology
04/15/23 13:43 Blood/Venous Blood Culture - Final
No Growth - Final Report
04/19/23 12:30 Sputum Respiratory Culture - Preliminary
Yeast
04/19/23 12:30 Sputum Gram Stain - Preliminary
04/16/23 15:48 Sputum Respiratory Culture - Final
Usual Respiratory Enedelia
04/16/23 15:48 Sputum Gram Stain - Final
[2023-04-21] MEDS: TOPROL XL 25 MG PO (07:43)
[2023-04-21] MEDS: HYDROPHOR 1 APPLIC TOPICAL (07:44)
[2023-04-21] MEDS: DESENEX/MITRAZOL/ZEASORB 1 APPLIC TOPICAL ×2 (07:45→20:39)
--- NOTE | 2023-04-21 11:09 | PHA.VAN.FU ---
Vancomycin Assessment / Plan
- Assessment
Renal Function: Stable
WBC's are: Trending Down
In the past 24 hrs, patient has been: Afebrile
Concomitant Antimicrobials: piperacillin/tazobactam
- Dosing Plan
Continue: Vanc 1500mg Q8H
- Monitoring Plan
No level(s) ordered at this time: consider repeat levels in next few days
- Follow Up
Pharmacy will continue to follow.
Vancomycin Follow UP
- -
Patient Age: 38
Patient Sex: Female
Vancomycin Day #: 7
Indication: Pulmonary/Respiratory
Requesting Provider: Dr. Smith
Pertinent Antimicrobial Allergies:
no pertinent antibiotic allergies
Height / Weight:
Height 5 ft 9 in
Actual Weight 244 kg
IBW in k
Adjusted BW in k
Pertinent Past Medical History: BMI ~81
- Vital Signs / Lab Results
Temp Pulse Resp BP Pulse Ox
98.1 F 84 32 133/55 91
04/21/23 08:00 04/21/23 08:00 04/21/23 08:00 04/21/23 08:00 04/21/23 08:00
Lab Results - Hematology
04/19/23 04/20/23 04/21/23
07:59 05:26 06:18
WBC 18.7 H 17.4 H 14.5 H
Lab Results - Chemistry
04/18/23 04/19/23 04/20/23
19:28 07:59 05:26
BUN Cancelled 21 H 23 H
Creatinine Cancelled 0.7 0.6
Estimated Creat Clear Cancelled > 125 > 125
Albumin Cancelled
04/21/23
06:18
BUN 22 H
Creatinine 0.5 L
Estimated Creat Clear > 125
Albumin
Microbiology Results
04/19/23 12:30 Respiratory Culture - Final
Sputum Yeast
Gram Stain - Final
04/15/23 13:43 Blood Culture - Final
Blood/Venous No Growth - Final Report
Therapeutic Drug Monitoring
Vancomycin Peak Cancelled 04/20/23 01:00
Vancomycin Trough 10.5 ug/ml (5-20) 04/20/23 05:26
[2023-04-21] MEDS: DECADRON 4 MG IV (12:13)
--- NOTE | 2023-04-21 14:37 | PTCARENOTE ---
Patient received in AM with assessment as noted. Continues alert and oriented with a pleasant affect. Precedex d/c'd at 1230 last night and continues off. Seen by PT/OT and able to sit on the edge of the bed with assist but not able to stand.
NSR/Sinus tach on monitor. Afebrile. B/P's stable. Lungs diminished in bases bilaterally otherwise slightly coarse with scattered exp wheezes at times. NIV 20/10 50% held at 0800 and transitioned to 15 lnc and later weaned to 10 lnc with sdao2
maintained >92%. Advanced to low cholesterol diet starting with lunch and tolerated well. Appetite good. Had 2 loose brown stools this AM. Hanh blood tinged urine draining via pure wick catheter. Patient currently has her menses. Family into visit
and updated to patient condition. Patient currently in bed with call elmore and telephone in reach.
--- NOTE | 2023-04-21 15:36 | CM ---
CM following re: discharge planning.
Reviewed pt's chart, met with pt and pt's mother at bedside.
CM had a long conversation with pt and her mother regarding pt's mother concerns of being next of kin. Information provided, pt stated she had discussion with her mother regarding advance directives and her mother knows her wishes.
Per RN pt is doing better.
PT and OT will evaluate when clinically appropriate.
Pt's mother stated she will continue to provide necessary care and support to the pt and if PT/OT recommend home PT/OT pt will accept it.
D/C plan: home with possibly VN and family support.
CM will follow with discharge plan updates as hospitalization progresses
[2023-04-21] MEDS: TYLENOL 650 MG PO ×2 (17:10→22:24)
[2023-04-21] MEDS: LOVENOX 60 MG SC (17:10)
[2023-04-21] MEDS: BENADRYL 25 MG PO ×2 (17:10→22:24)
--- NOTE | 2023-04-21 23:45 | RESPNOTE ---
pt not ready for bed at this time
[2023-04-22] VITALS (23 sets, daily range): BP systolic 108–182; BP diastolic 58–144; BMI 82.2
[2023-04-22] MEDS: DECADRON 4 MG IV ×3 (00:57→23:42)
[2023-04-22] MEDS: ZOSYN 100 IV ×4 (02:31→20:38)
--- NOTE | 2023-04-22 03:41 | RESPNOTE ---
pt remains off bipap. still awake
[2023-04-22] MEDS: BENADRYL 25 MG PO (04:24)
[2023-04-22] MEDS: TYLENOL 650 MG PO ×3 (04:24→21:26)
[2023-04-22] MEDS: VANCOCIN 300 MG IV ×3 (05:26→22:02)
[2023-04-22] MEDS: VANCOCIN 300 ML IV ×3 (05:26→22:02)
[2023-04-22 06:20] LABS: Hematocrit 33.7 % (37.0-47.0); Mean Corp Hgb Conc. 32.6 g/dL (33.0-37.0); Mean Corpuscular Hgb 29.1 pg (27.0-31.0); Mean Corpuscular Volume 89.2 fL (81.0-99.0); Platelet Count 501 10^3/uL (130-400); Red Blood Cell Count 3.78 10^6/uL (4.20-5.40); Red Cell Dist. Width 13.3 % (11.5-14.5); White Blood Cell Count 14.1 10^3/uL (4.8-10.8)
--- NOTE | 2023-04-22 06:44 | PTCARENOTE ---
04/21 received pt from dayshift RN, assessments completed and charted, pt offers no complaints of pain or discomfort. pt is on 10lm midflow, o2 saturation >94% no c/o sob, difficultly breathing
pt encouraged to move arms and legs, we have been doing arm and leg exercises every hour, pt maintains good o2 saturation after exercise.
pt had multiple loose stool,
purewick remains patent for yellow urine, pt had some difficulty falling asleep, requested melatonin at 0400 - order placed to start tonight.
pt remained off NIV/bipap all night, only used midflow nc and had no distress or discomfort all night.
[2023-04-22 06:49] LABS: Blood Urea Nitrogen 17 mg/dl (7-17); Calcium 8.7 mg/dl (8.4-10.2); Carbon Dioxide 34 mmol/L (22-30); Chloride 94 mmol/L (98-107); Estimated Creatinine Clearance > 125 ml/min; Glucose 125 mg/dl (70-99); Magnesium 2.2 mg/dl (1.6-2.3); Phosphorus 4.4 mg/dl (2.5-4.5); Potassium 4.9 mmol/L (3.5-5.1); Sodium 134 mmol/L (135-145); eGFR > 60.00
--- NOTE | 2023-04-22 07:20 | W.PN.HOSP.TC ---
Today's Communication/Plan
-
Continue present course of antibiotics
Leukocytosis trending down
Chest x-ray reviewed
Continue on mid flow oxygen as tolerated off NIV and off Precedex
Resume metoprolol
Assessment / Plan
Assessment / Plan
HPI: 38-year-old with history of obesity, lymphedema, multiple episodes of cellulitis, hypertension, palpitations presenting with shortness of breath.� 2 weeks ago she felt like she had cold described as productive cough and hoarse voice.� Since
that time she is also noted drainage from her legs bilaterally and was concerned that she may have had cellulitis.� She was started on Keflex which she has been on for the past 5 days.� Since then she has been having increased shortness of breath
associate with increasing cough.� She denies fevers or chills, vomiting or abdominal pain or diarrhea.� She has tightness in her chest and in her back for the past day that is constant and she thinks is from coughing.
She denies any history of lung problems including asthma or COPD.� She denies smoking, alcohol or any drugs.
She has been seeing a assistant reading teacher due to occasional symptoms of palpitations and saw her assistant reading teacher last week without any official diagnosis of arrhythmia.
#Sepsis (fever, tachycardia, tachypnea) secondary to community-acquired pneumonia with severe dyspnea
#Acute hypoxic respiratory failure
#History of MRSA positive sputum culture
Chest x-ray shows mild bilateral pneumonia, COVID and influenza negative/repeat chest x-ray today continues to show bilateral inflammatory infiltrates
Respiratory failure multifactorial due to pneumonia and body habitus
Appreciate mangle press catcher input, NIV off overnight for the first time. Tolerating mid flow oxygen for now and Precedex now off
Continue vancomycin, Zosyn, IV steroids, bronchodilators
#Anxiety
, IV Ativan as needed
#Food addiction
Mom reports that patient is unable to stop eating, suspect she has a psychiatric component to her overeating
Consult psychiatry/again came back and saw yesterday and no active issues other than will need to address as outpatient her apparent eating disorder
#Bilateral lower extremity cellulitis superimposed on chronic lymphedema
Status post outpatient Keflex for 5 days
Covered with Vancomycin and Zosyn
#Essential hypertension
Precedex drip, may need to hold metoprolol depending on blood pressure
#Hyperkalemia
K 5.1, was 5.2, was 5.4>>4.9
S/p Lokelma
Severe obesity due to excess calories
-Affects all aspects of care
Constipation
-Started MiraLAX
Palpitations
-Follows with cardiology outpatient, resumed metoprolol
Stage 2 buttocks pressure injury, POA
-Wound care, frequent turning
History of multiple episodes of cellulitis
DVT prophylaxis�SQ Lovenox
Full code
Updated mom at bedside 04/19
Total time spent to see the patient on the floor, examine the patient, review data and lab results, discuss treatment plan with patient, nursing staff around 52 minutes.
Physical Exam
General: Morbidly obese, no acute distress
HEENT: Normocephalic, Atraumatic, EOMI, MMM
Respiratory: Clear to Auscultation bilaterally
Cardiac: Normal S1/S2, Regular Rate and Rhythm
GI: Soft, Nontender, Nondistended, Normal Bowel Sounds
Extremities: No Clubbing, Cyanosis
Bilateral lower extremity lymphedema noted with erythema
Anticipated Discharge: 24 - 48 hours
Subjective/Interval History
-
Date of Service: April 22, 2023
Patient was maintained off NIV all night on mid flow oxygen at 10 L without distress) blood with stools throughout the night able to awaken from sleep without difficulty
Objective Data
-
Labs:
Laboratory Results
04/22/23
06:07
WBC 14.1 H
Hgb 11.0 L
Hct 33.7 L
Plt Count 501 H
Sodium 134 L
Potassium 4.9
Chloride 94 L
Carbon Dioxide 34 H
BUN 17
Creatinine 0.5 L
Glucose 125 H
Calcium 8.7
Vital Signs:
Vital Signs
Temp Pulse Resp BP Pulse Ox
97.8 F 74 26 161/78 96
04/22/23 03:43 04/22/23 05:00 04/22/23 05:00 04/22/23 05:00 04/22/23 05:00
I&O
04/21/23 04/22/23 04/23/23
06:59 06:59 06:59
Intake Total 2727.4 / 2727.4 1240 / 1240
Output Total 1375 / 1375 3700 / 3700
Balance 1352.4 / 1352.4 -2460 / -2460
Review of Systems
-
History Source: Patient
Constitutional: Reports Fatigue and Weakness
EENT: Reports No Symptoms Reported
Respiratory: Reports No Symptoms
Cardiac: Reports No Symptoms
Abdomen/GI: Reports No Symptoms
Genitourinary: Reports No Symptoms
Skin: Reports Sores and Skin Thickening
Psych: Reports Depressed
Physical Exam
-
General: Morbidly Obese
HEENT: Normocephalic
Respiratory: Wheezes
Cardiac: Regular Rhythm
GI: Soft and Nontender
Genito-urinary: Other (PureWick with some blood)
Neuro: Awake
Psych: Depressed
Data Reviewed
-
Total Time Spent with Patient (in minutes): 56
Labs: Labs Reviewed by me (Leukocytosis slowly trending down/creatinine 0.5 blood sugar of 125)
[2023-04-22] MEDS: XOPENEX 1.25 MG INHALANT SOLUTION INH ×4 (07:41→19:42)
--- NOTE | 2023-04-22 07:51 | W.PN.INTV ---
Today's Communication / Plan
Recommendations
O2
BPAP vs NIV as needed
Atbs
CS
Speech
PPI
Assessment
-
38-year-old female with past medical history of chronic lower extremity edema, cellulitis, hypertension, suspected DAVID presenting with increasing shortness of breath for the past few days. She feels this may have been triggered by an upper
respiratory infection for the past 2 weeks with productive cough and hoarse voice. Chest x-ray demonstrating interstitial pattern. On arrival, she was notably in distress with increased work of breathing, placed on BiPAP. She is admitted to ICU
for respiratory distress.
Acute hypoxic respiratory failure, O2 sherry 87%, placed on BiPAP
Increased work of breathing/shortness of breath
Fever
Leukocytosis
Recent outpatient treatment for cellulitis, Keflex x 5 days
Possible upper respiratory infection
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
Super morbid obesity, BMI 81
Suspected DAVID, never underwent HST
Hypertension
Palpitations
Plan
No current signs of metabolic encephalopathy or MS changes/following commands
Denies pain at this time.
Pain/sedation: Precedex discontinued
RASS goals: 0
Hemodynamically stable, not requiring pressors.
Cardiac history reviewed -- HTN
Prior ECHO showing preserved function, proBNP slightly elevated
Resumed on home meds
Monitor on telemetry
Required NIV: daytime and nighttime initially, then only qhs at 20/10
Planned to resume BPAP on night of - at 20/10 with O2 8L but was able to stay on O2 NC 10L last night
Now able to do O2 NC during daytime
Currently on O2 wean from 15L to 9L, POx 94%
Empiric dexam since adm, continue for now for bronchitic symptoms, currently at 4 mg IV q12
Prior history of lung disease: Super morbid obesity, suspected underlying DAVID, untreated
CXR/CT reviewed indicating possible infection, though pattern is more diffuse and interstitial
Repeat CXR showing diffuse patchy infiltrates worsening from prior
Prior CT was also reviewed indicating normal parenchyma
Repeat CXR 04-22 with, considering differences in technique, improvement of bilateral infitrates
Speech evaluation ordered 04-22
Hat Lining Blocker recommendations
Aspiration precautions, HOB > 30 degrees
Started protonix po 04-22 as reflux suspected
Creat at baseline, no history of renal disease
Void trials
Follow urine output, critical I/Os
Replete electrolytes as needed
Fever and increased WBC on presentation, suspect possible upper respiratory infection
Febrile on adm up to 101F, afebrile since evening 04-15
Continue empiric antibiotics: zosyn/vancomycin at D8on 04-22
Micro/Cultures reviewed:
Bloodx1 so far negative 04/15/23
Sputum neg 04/16/23, neg strep/leg Ag, flu neg, recheck sputum
Urine neg 04/15/23
MRSA positive 04-16 and in Dec 2022 (negative in Feb 2023)
Follow fever trend, WBC count
CXR 04-22: mild improvement in bilateral pulm infiltrates
CBC stable, no signs of bleeding or coagulopathy.
DVT prophylaxis as assessed based on risk, including mechanical SCDs
Can transfuse if indicated for Hb <7, plt < 10
No prior h/o diabetes or thyroid disease
Monitor accuchecks PRN/SS coverage if needed
D/w parents at bedside 04-21
D/w MDT
Stabilizing to return to IMU
Diagnostic Data
CXR 04-22-23: bilateral pulm infiltrates with mild improvement
CXR 04-18-23 c/w below, underpenetrated poor quality film but seemingly worse bilat infiltrates
Chest X-Ray: 04/15/23- New findings concerning for mild bilateral pneumonia. Findings related to limited inspiration cannot be completely excluded. Clinical and laboratory correlation recommended.
CHEST 03/31/23- Limited study demonstrating no active cardiopulmonary disease. There is no large central pulmonary embolus. Evaluation for peripheral pulmonary embolism is limited by the patient's large size
TTE 02-27-23: very technically difficult, contrasted, LVEF 55-60%
Subjective Dataa
Subjective Data
Date of Service:
Date of Service: April 22, 2023
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
Subjective:
Did not require noninvasive ventilation or BiPAP last night
Did well on oxygen nasal cannula at 10 L overnight
Review of Systems
General: Fever (n), Sweats (n), Chills (n) and Satisfactory Appetite
HEENT: Epistaxis (n) and Dysphagia
Cardiopulmonary: Dyspnea, Cough, Sputum Production (n), Chest Pain (n), Edema (GEOVANNI) and Hemoptysis (n)
GI: Abdominal Pain (n), Nausea (n) and Vomiting
Neuro: Weakness
Objective Data
Data Reviewed
Vital Signs / I&O / Oxygen:
Vital Signs
Temp Pulse Resp BP Pulse Ox
97.8 F 74 26 161/78 94
04/22/23 03:43 04/22/23 07:44 04/22/23 07:44 04/22/23 05:00 04/22/23 07:44
Intake and Output
04/21/23 04/22/23 04/23/23
06:59 06:59 06:59
Intake Total 2727.4 / 2727.4 1240 / 1240
Output Total 1375 / 1375 3700 / 3700
Balance 1352.4 / 1352.4 -2460 / -2460
SaO2 [NIV (Non Invasive 94
Ventilation)]
SaO2 94
Nasal Cannula flow liters per 10
minute
Physical Exam
General: Respiratory Distress and Other (morbidly obese, anxious appearing)
HEENT: Normocephalic, Anicteric, Moist Mucous Membranes and Other (poor oral hygiene)
Cardiovascular: S1-S2, Regular Rhythm, Murmur (n), JVD, Peripheral Edema (chronic LE wounds b/l with wrap) and Calf Tenderness (n)
Respiratory: Clear (decreased overall BS, due to BH), Wheeze (n), Rhonchi, Accessory Resp Muscle Use (with NIV on) and Stridor (n)
GI: Soft, Distended (protuberant, obese) and Non Tender
Neurology: Awake, Alert, Oriented, AO x 3, No Motor Deficits and Depressed (appearing, not answering while on NIV)
Skin: Warm and Dry
Labs/Micro/Reports
Lab Data
04/22/23 06:07
04/22/23 06:07
Microbiology
04/19/23 12:30 Sputum Respiratory Culture - Final
Yeast
04/19/23 12:30 Sputum Gram Stain - Final
04/15/23 13:43 Blood/Venous Blood Culture - Final
No Growth - Final Report
[2023-04-22] MEDS: TOPROL XL 25 MG PO (09:39)
[2023-04-22] MEDS: HYDROPHOR 1 APPLIC TOPICAL (09:46)
[2023-04-22] MEDS: DESENEX/MITRAZOL/ZEASORB 1 APPLIC TOPICAL ×2 (09:46→20:39)
--- NOTE | 2023-04-22 10:22 | PTCARENOTE ---
patient received in bed. on 10L via mid-flow. Denies pain. AAO x3. SR on a monitor. SOB on 10L via mid flow. Incontinent of bowel and bladder. Purwick catheter changed HOB elevated
--- NOTE | 2023-04-22 11:38 | PHA.VAN.FU ---
Vancomycin Assessment / Plan
- Assessment
Renal Function: Stable
WBC's are: Stable
In the past 24 hrs, patient has been: Afebrile
Concomitant Antimicrobials: piperacillin/tazobactam
- Dosing Plan
Continue: Vanc 1500mg Q8
- Monitoring Plan
No level(s) ordered at this time: consider levels if vanc not discontinued in next few days
- Follow Up
Pharmacy will continue to follow.
Vancomycin Follow UP
- -
Patient Age: 38
Patient Sex: Female
Vancomycin Day #: 8
Indication: Pulmonary/Respiratory
Requesting Provider: Dr. Smith
Pertinent Antimicrobial Allergies:
no pertinent antibiotic allergies
Height / Weight:
Height 5 ft 9 in
Actual Weight 252.2 kg
IBW in k
Adjusted BW in k
Pertinent Past Medical History: BMI ~81
- Vital Signs / Lab Results
Temp Pulse Resp BP Pulse Ox
98.3 F 89 28 142/77 94
04/22/23 11:35 04/22/23 10:00 04/22/23 10:00 04/22/23 10:00 04/22/23 10:00
Lab Results - Hematology
04/20/23 04/21/23 04/22/23
05:26 06:18 06:07
WBC 17.4 H 14.5 H 14.1 H
Lab Results - Chemistry
04/20/23 04/21/23 04/22/23
05:26 06:18 06:07
BUN 23 H 22 H 17
Creatinine 0.6 0.5 L 0.5 L
Estimated Creat Clear > 125 > 125 > 125
Microbiology Results
04/19/23 12:30 Respiratory Culture - Final
Sputum Yeast
Gram Stain - Final
04/15/23 13:43 Blood Culture - Final
Blood/Venous No Growth - Final Report
Therapeutic Drug Monitoring
Vancomycin Peak Cancelled 04/20/23 01:00
Vancomycin Trough 10.5 ug/ml (5-20) 04/20/23 05:26
[2023-04-22] MEDS: PROTONIX 40 MG PO (12:46)
--- NOTE | 2023-04-22 14:23 | W.PN.UPDATE ---
Update Note
Progress Note Update
patient seen chart reviewed. father at bedside. this consult was ordered bc ? of whether depression and anxiety are hoffman to patient's overeating and morbid obesity. the patient denied that she is particularly depressed or anxious. she did say she
is struggling to sleep and uses melatonin at home. (10 mg) with success. this was ordered by this travel writer. obviously obesity has many many components and a psychiatric illness is not necessarily the cause here. she is looking into bariatric
surgery and that may be the best route to go. notably if there is a hx of depression and anxiety it becomes much more difficult to access this type of remedy. she does not feel she needs to see psych at this time. we will sign off. please call if
a return visit is necessary
--- NOTE | 2023-04-22 14:32 | PTOTSP ---
INITIAL CLINICAL SWALLOWING EVALUATION:
Evaluation completed. 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 Dry cough noted x2 after bites of food and could be related to reflux. Pt w/ abnormal breath sounds prior to, during, and after po intake w/o
change. No overt sx s/o airway penetration. Pt w/o history of recurrent pna/URIs. Silent aspiration can not be ruled out at b/s, but body habitus above VSE chair limits.
Recommend:
1. continue w/ Regular solids/thin liquids
2. reflux precautions
3. consider GI consult inpatient vs outpatient
Skilled speech tx not indicated at this time. Reconsult as appropriate.
--- NOTE | 2023-04-22 15:11 | PTCARENOTE ---
patient in bed, on 10L of oxygen via mid-flow. Incontinent of urine and bladder. 2Bowel loose movement since this am. Purwick changed. BP via RT upper arm: 182/91. HR 91. Hydralizine ordered PRN order for SBP >140
[2023-04-22] MEDS: APRESOLINE 5 MG IV (16:08)
--- NOTE | 2023-04-22 16:10 | PTCARENOTE ---
tylenol adminitered 30 mints prior to Vancomycin adm per order.
[2023-04-22] MEDS: LOVENOX 60 MG SC (17:41)
--- NOTE | 2023-04-22 20:00 | PTCARENOTE ---
Received report from lana RN, assumed care of patient at 1900. Nursing assessment completed and as documented. Patient Ox3, on 10L MF NC sats 96%, tachypneic at times with shallow respirations. Patient with diminished, coarse lung sounds with
occasional moist productive cough. SR on monitor, rates 70-90, +PP, +3 BLLE edema with existing wounds wrapped with LAUREL. Patient with round obese abdomen and with episodes of incontinence of bowel. Upon initial assessment patient incontinent of
large loose BM required complete bed change and CHG bath. Patient incontinent of urine, purewick in place and changed, patient with menses at this time. Wound care provided to BLLE, desenex applied to all affected areas. Left midline in place, no
blood return noted. R AC PIV in place and patent. Medications given as ordered, patient repositioned for comfort. Call elmore within reach, safe environment maintained, VSS, continued with current care plan.
[2023-04-22] MEDS: MELATONIN 10 MG PO (22:20)
--- NOTE | 2023-04-22 23:34 | RESPNOTE ---
pt very disinterested in bipap tonight
[2023-04-23] VITALS (26 sets, daily range): BP systolic 100–168; BP diastolic 48–98; PULSE 90; O2SAT 91; BMI 75.6
--- NOTE | 2023-04-23 | PTCARENOTE ---
Systems reviewed, no changes to physical assessment. Patient refused HS BiPAP. Medications given as ordered, see MAR. Call elmore within reach, VSS, safe environment maintained, care ongoing.
[2023-04-23] MEDS: APRESOLINE 5 MG IV (02:09)
[2023-04-23] MEDS: ZOSYN 100 IV ×4 (02:09→20:34)
--- NOTE | 2023-04-23 04:00 | PTCARENOTE ---
No changes to physical assessment. Patient resting comfortably in bed. Labs drawn and sent. Hygiene care provided. Call elmore within reach, safe environment maintained, care ongoing.
[2023-04-23 04:48] LABS: Hematocrit 35.8 % (37.0-47.0); Hemoglobin 11.7 g/dL (12.0-16.0); Mean Corp Hgb Conc. 32.7 g/dL (33.0-37.0); Mean Corpuscular Hgb 29.5 pg (27.0-31.0); Mean Corpuscular Volume 90.4 fL (81.0-99.0); Mean Platelet Volume 9.1 fL (7.4-10.4); Platelet Count 511 10^3/uL (130-400); Red Blood Cell Count 3.96 10^6/uL (4.20-5.40); Red Cell Dist. Width 13.2 % (11.5-14.5)
[2023-04-23 05:06] LABS: Blood Urea Nitrogen 16 mg/dl (7-17); Calcium 8.8 mg/dl (8.4-10.2); Carbon Dioxide 32 mmol/L (22-30); Chloride 99 mmol/L (98-107); Estimated Creatinine Clearance > 125 ml/min; Glucose 140 mg/dl (70-99); Potassium 5.1 mmol/L (3.5-5.1); Sodium 133 mmol/L (135-145); eGFR > 60.00
[2023-04-23] MEDS: TYLENOL 650 MG PO ×3 (05:30→21:36)
[2023-04-23] MEDS: VANCOCIN 300 ML IV ×3 (06:12→22:21)
[2023-04-23] MEDS: VANCOCIN 300 MG IV ×3 (06:12→22:21)
[2023-04-23] MEDS: XOPENEX 1.25 MG INHALANT SOLUTION INH ×4 (07:12→20:30)
--- NOTE | 2023-04-23 07:12 | W.PN.HOSP.TC ---
Today's Communication/Plan
-
Continue Zosyn/vancomycin
And dexamethasone
N IV when needed but has been refusing overnight
Try and titrate down oxygen increase activity
Assessment / Plan
Assessment / Plan
HPI: 38-year-old with history of obesity, lymphedema, multiple episodes of cellulitis, hypertension, palpitations presenting with shortness of breath.� 2 weeks ago she felt like she had cold described as productive cough and hoarse voice.� Since
that time she is also noted drainage from her legs bilaterally and was concerned that she may have had cellulitis.� She was started on Keflex which she has been on for the past 5 days.� Since then she has been having increased shortness of breath
associate with increasing cough.� She denies fevers or chills, vomiting or abdominal pain or diarrhea.� She has tightness in her chest and in her back for the past day that is constant and she thinks is from coughing.
She denies any history of lung problems including asthma or COPD.� She denies smoking, alcohol or any drugs.
She has been seeing a hook tender due to occasional symptoms of palpitations and saw her hook tender last week without any official diagnosis of arrhythmia.
#Sepsis (fever, tachycardia, tachypnea) secondary to community-acquired pneumonia with severe dyspnea
#Acute hypoxic respiratory failure
#History of MRSA positive sputum culture
Chest x-ray shows mild bilateral pneumonia, COVID and influenza negative/repeat chest x-ray today continues to show bilateral inflammatory infiltrates
Respiratory failure multifactorial due to pneumonia and body habitus
Appreciate char dust cleaner and salvager input, NIV off overnight for the first time(actually refused BiPAP last night). Tolerating mid flow oxygen for now and Precedex now off
Continue vancomycin, Zosyn, IV steroids, bronchodilators
#Anxiety
, IV Ativan as needed
#Food addiction
Mom reports that patient is unable to stop eating, suspect she has a psychiatric component to her overeating
Consult psychiatry/again came back and saw yesterday and no active issues other than will need to address as outpatient her apparent eating disorder
#Bilateral lower extremity cellulitis superimposed on chronic lymphedema
Status post outpatient Keflex for 5 days
Covered with Vancomycin and Zosyn
#Essential hypertension
Precedex drip, may need to hold metoprolol depending on blood pressure
#Hyperkalemia
K 5.1, was 5.2, was 5.4>>4.9
S/p Lokelma
Severe obesity due to excess calories
-Affects all aspects of care
Constipation
-Started MiraLAX
Palpitations
-Follows with cardiology outpatient, resumed metoprolol
Stage 2 buttocks pressure injury, POA
-Wound care, frequent turning
History of multiple episodes of cellulitis
DVT prophylaxis�SQ Lovenox
Full code
Updated mom at bedside 04/19
Total time spent to see the patient on the floor, examine the patient, review data and lab results, discuss treatment plan with patient, nursing staff around 52 minutes.
Physical Exam
General: Morbidly obese, no acute distress
HEENT: Normocephalic, Atraumatic, EOMI, MMM
Respiratory: Clear to Auscultation bilaterally
Cardiac: Normal S1/S2, Regular Rate and Rhythm
GI: Soft, Nontender, Nondistended, Normal Bowel Sounds
Extremities: No Clubbing, Cyanosis
Bilateral lower extremity lymphedema noted with erythema
Anticipated Discharge: > 48 hours
Subjective/Interval History
-
Date of Service: April 23, 2023
Patient refused BiPAP last night was on 10 L mid flow tachypneic at times with shallow respirations having loose bowel movements
Objective Data
-
Labs:
Laboratory Results
04/23/23
04:37
WBC 13.0 H
Hgb 11.7 L
Hct 35.8 L
Plt Count 511 H
Sodium 133 L
Potassium 5.1
Chloride 99
Carbon Dioxide 32 H
BUN 16
Creatinine 0.5 L
Glucose 140 H
Calcium 8.8
Vital Signs:
Vital Signs
Temp Pulse Resp BP Pulse Ox
98.4 F 74 25 146/69 95
04/23/23 03:15 04/23/23 06:00 04/23/23 06:00 04/23/23 06:00 04/23/23 06:00
I&O
04/22/23 04/23/23 04/24/23
06:59 06:59 06:59
Intake Total 1240 / 1240 990 / 990
Output Total 3700 / 3700 2800 / 2800
Balance -2460 / -2460 -1810 / -1810
Review of Systems
-
History Source: Patient
Constitutional: Reports Fatigue and Weakness; Denies Fever
Respiratory: Reports Trouble Breathing
Abdomen/GI: Reports Diarrhea
Physical Exam
-
General: Appears Chronically Ill and Morbidly Obese
HEENT: Normocephalic
Respiratory: Rales, Rhonchi, Crackles and Decreased Breath Sounds
Cardiac: Regular Rhythm
GI: Soft and Nontender
Skin: Ulcers
Neuro: Awake and Oriented
Psych: Anxious
Data Reviewed
-
Critical Care Time (in minutes): 56
Labs: Labs Reviewed by me
--- NOTE | 2023-04-23 07:41 | W.PN.INTV ---
Today's Communication / Plan
Recommendations
O2
Atbs
CS
OOB chair
Assessment
-
38-year-old female with past medical history of chronic lower extremity edema, cellulitis, hypertension, suspected DAVID presenting with increasing shortness of breath for the past few days. She feels this may have been triggered by an upper
respiratory infection for the past 2 weeks with productive cough and hoarse voice. Chest x-ray demonstrating interstitial pattern. On arrival, she was notably in distress with increased work of breathing, placed on BiPAP. She is admitted to ICU
for respiratory distress.
Acute hypoxic respiratory failure, O2 sherry 87%, placed on BiPAP
Pneumonia
Fever
Leukocytosis
Recent outpatient treatment for cellulitis, Keflex x 5 days
Possible upper respiratory infection
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
Super morbid obesity, BMI 81
Suspected DAVID, never underwent HST
Hypertension
Palpitations
Plan
No current signs of metabolic encephalopathy or MS changes/following commands
Denies pain at this time.
Pain/sedation: Precedex discontinued
RASS goals: 0
Hemodynamically stable, not requiring pressors.
Cardiac history reviewed -- HTN
Prior ECHO showing preserved function, proBNP slightly elevated
Resumed on home meds
Monitor on telemetry
Required NIV: daytime and nighttime initially, then only qhs at 20/10
Planned to resume BPAP on night of 04-21 at 20/10 with O2 8L but was able to stay on O2 NC 10L last night
Now able to do O2 NC during daytime
Currently on O2 wean from 15L to 7L, POx 96%
Now refusing NIV or BPAP, but has been reasonably stable on O2 NC
Empiric dexam since adm, continue for now for bronchitic symptoms, currently at 4 mg IV q12
Changed to prednisone 40 mg qd 04-23, slow taper will follow
Prior history of lung disease: Super morbid obesity, suspected underlying DAVID, untreated
CXR/CT reviewed indicating possible infection, though pattern is more diffuse and interstitial
Repeat CXR showing diffuse patchy infiltrates worsening from prior
Prior CT was also reviewed indicating normal parenchyma
Repeat CXR 04-22 with, considering differences in technique, improvement of bilateral infitrates
Speech evaluation ordered 04-22
Banquet Waiter/Waitress recommendations
Aspiration precautions, HOB > 30 degrees
Started protonix po 04-22 as reflux suspected
Creat at baseline, no history of renal disease
Void trials
Follow urine output, critical I/Os
Replete electrolytes as needed
Fever and increased WBC on presentation, suspect possible upper respiratory infection
Febrile on adm up to 101F, afebrile since evening 04-15
Continue empiric antibiotics: zosyn/vancomycin at D8 on 04-22, to complete at least 10 d course
Micro/Cultures reviewed:
Bloodx1 so far negative 04/15/23
Sputum neg 04/16/23, neg strep/leg Ag, flu neg, recheck sputum c yeast 04-19
Urine neg 04/15/23
MRSA positive 04-16 and in Dec 2022 (negative in Feb 2023)
Follow fever trend, WBC count
CXR 04-22: mild improvement in bilateral pulm infiltrates
CBC stable, no signs of bleeding or coagulopathy.
DVT prophylaxis as assessed based on risk, including mechanical SCDs
Can transfuse if indicated for Hb <7, plt < 10
No prior h/o diabetes or thyroid disease
Monitor accuchecks PRN/SS coverage if needed
OOB to chair to attempt 04-23
D/w parents at bedside 04-21
D/w MDT
Stable for IMU, pulm will follow
Diagnostic Data
CXR 04-22-23: bilateral pulm infiltrates with mild improvement
CXR 04-18-23 c/w below, underpenetrated poor quality film but seemingly worse bilat infiltrates
Chest X-Ray: 04/15/23- New findings concerning for mild bilateral pneumonia. Findings related to limited inspiration cannot be completely excluded. Clinical and laboratory correlation recommended.
CHEST 03/31/23- Limited study demonstrating no active cardiopulmonary disease. There is no large central pulmonary embolus. Evaluation for peripheral pulmonary embolism is limited by the patient's large size
TTE 02-27-23: very technically difficult, contrasted, LVEF 55-60%
Subjective Dataa
Subjective Data
Date of Service:
Date of Service: April 23, 2023
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
Subjective:
No major events reported overnight
Sleeping comfortably this morning, woke up, able to interact with the staff, taking breakfast
Review of Systems
General: Fever (n), Sweats (n), Chills (n) and Satisfactory Appetite
Cardiopulmonary: Dyspnea, Cough and Sputum Production (n)
GI: Abdominal Pain (n), Nausea (n) and Vomiting
Neuro: Weakness
Objective Data
Data Reviewed
Vital Signs / I&O / Oxygen:
Vital Signs
Temp Pulse Resp BP Pulse Ox
98.4 F 77 24 146/69 90
04/23/23 03:15 04/23/23 07:14 04/23/23 07:14 04/23/23 06:00 04/23/23 07:14
Intake and Output
04/22/23 04/23/23 04/24/23
06:59 06:59 06:59
Intake Total 1240 / 1240 990 / 990
Output Total 3700 / 3700 2800 / 2800
Balance -2460 / -2460 -1810 / -1810
SaO2 [NIV (Non Invasive 94
Ventilation)]
SaO2 90
Nasal Cannula flow liters per 10
minute
Physical Exam
General: Respiratory Distress (mild) and Other (morbidly obese, anxious appearing)
HEENT: Normocephalic, Anicteric, Moist Mucous Membranes and Other (poor oral hygiene)
Cardiovascular: S1-S2, Regular Rhythm, Murmur (n), JVD, Peripheral Edema (chronic LE wounds b/l with wrap) and Calf Tenderness (n)
Respiratory: Clear (decreased overall BS, due to BH), Wheeze (n), Rhonchi, Accessory Resp Muscle Use (with NIV on) and Stridor (n)
GI: Soft, Distended (protuberant, obese) and Non Tender
Neurology: Awake, Alert, Oriented, AO x 3, No Motor Deficits and Depressed (appearing, not answering while on NIV)
Skin: Warm and Dry
Labs/Micro/Reports
Lab Data
04/23/23 04:37
04/23/23 04:37
Microbiology
04/19/23 12:30 Sputum Respiratory Culture - Final
Yeast
04/19/23 12:30 Sputum Gram Stain - Final
04/15/23 13:43 Blood/Venous Blood Culture - Final
No Growth - Final Report
--- NOTE | 2023-04-23 08:30 | PTCARENOTE ---
Received pt. @ change of shift. Drowsy, awakens to verbal stimuli, oriented x 3. SR on monitor. SpO2 97% on 7LMF, NICKERSON/tachypneic/orthopneic. Refused BiPAP overnight per nightshift RN. Inc b/b. Purewick in place, draining reggie urine. Wound care
dressings c/d/i. #20 R AC and L midline, patent, dressings c/d/i. Pt. able to reposition self in bed w assistance of placing pillows/wedges. Awaiting PT/OT to evaluate for further movement needs. Pt. instructed on how to report care concerns and
call elmore in reach.
[2023-04-23] MEDS: PROTONIX 40 MG PO (08:31)
[2023-04-23] MEDS: HYDROPHOR 1 APPLIC TOPICAL (08:31)
[2023-04-23] MEDS: DESENEX/MITRAZOL/ZEASORB 1 APPLIC TOPICAL ×2 (08:31→20:35)
[2023-04-23] MEDS: TOPROL XL 25 MG PO (08:31)
[2023-04-23] MEDS: DELTASONE 40 MG PO (12:18)
[2023-04-23] MEDS: CLARITIN 10 MG PO (12:18)
--- NOTE | 2023-04-23 12:40 | PTCARENOTE ---
SpO2 weaned to 5L MF, tolerating wean. Pt.reports improving orthopnea; tachypnea remains into mid-high 20's as well as NICKERSON. Dr. Cuevas aware; attributing cont resp findings to body habitus. No s/s of resp distress. Call elmore w in reach.
--- NOTE | 2023-04-23 13:57 | CM ---
CM following re: discharge planning.
Discussed in rounds, reviewed pt's chart, met with pt.
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
PT evaluation noted - SNF level of care recommended. CM discussed it with the pt and pt expressed her disappointed feelings. Pt stated she will go to a SNF when she feels she is really needs to go. PT/OT will evaluate the pt to confirm discharge
plan recommendations.
D/C plan: Most likely SNF. Pt is not ready to discuss options of SNFs, requested PT/OT re-evaluation.
CM will follow with discharge plan updates as hospitalization progresses
--- NOTE | 2023-04-23 13:58 | PHA.VAN.FU ---
Vancomycin Assessment / Plan
- Assessment
Renal Function: Stable
WBC's are: Trending Down
In the past 24 hrs, patient has been: Afebrile
Concomitant Antimicrobials: piperacillin-tazobactam
- Dosing Plan
Continue: vanc 1500mg q8h
- Monitoring Plan
No level(s) ordered at this time: consider levels in the next couple days
- Follow Up
Pharmacy will continue to follow.
Vancomycin Follow UP
- -
Patient Age: 38
Patient Sex: Female
Vancomycin Day #: 9
Indication: Pulmonary/Respiratory
Requesting Provider: Dr. Smith
Pertinent Antimicrobial Allergies:
no pertinent antibiotic allergies
Height / Weight:
Height 5 ft 9 in
Actual Weight 231.927 kg
IBW in k
Adjusted BW in k
Pertinent Past Medical History: BMI ~81
- Vital Signs / Lab Results
Temp Pulse Resp BP Pulse Ox
98.6 F 96 32 117/55 94
04/23/23 11:39 04/23/23 12:00 04/23/23 12:00 04/23/23 12:00 04/23/23 12:00
Lab Results - Hematology
04/21/23 04/22/23 04/23/23
06:18 06:07 04:37
WBC 14.5 H 14.1 H 13.0 H
Lab Results - Chemistry
04/21/23 04/22/23 04/23/23
06:18 06:07 04:37
BUN 22 H 17 16
Creatinine 0.5 L 0.5 L 0.5 L
Estimated Creat Clear > 125 > 125 > 125
Microbiology Results
04/19/23 12:30 Respiratory Culture - Final
Sputum Yeast
Gram Stain - Final
Therapeutic Drug Monitoring
Vancomycin Peak Cancelled 04/20/23 01:00
Vancomycin Trough 10.5 ug/ml (5-20) 04/20/23 05:26
[2023-04-23] MEDS: LOVENOX 60 MG SC (17:58)
--- NOTE | 2023-04-23 20:00 | PTCARENOTE ---
Received report from lana RN, assumed care of patient at 1900. Patient Ox3, on 5L MFNC saturations 91-93%, lung sounds decreased, coarse, and with expiratory wheezing. Respirations shallow, patient NICKERSON and orthopedic. SR on monitor, + weak PP,
with +3 BLLE. Patient with round, obese abdomen, episodes of incontinence but continent at baseline. Patient states 'it happens with coughing and antibiotics'. Educated patient on importance of maintaining ADL's such as toileting. Purewick in place
with gross urine output. Patient with wounds to BLLE, covered with LAUREL compression and removed HS. Left arm midline in place and patent, medications given as ordered. R AC PIV patent and in place. VSS, call elmore within reach, safe environment
maintained, care ongoing.
[2023-04-23] MEDS: MELATONIN 10 MG PO (22:21)
[2023-04-24] VITALS (22 sets, daily range): BP systolic 103–166; BP diastolic 41–113; BMI 75.8
[2023-04-24] MEDS: ZOSYN 100 IV ×4 (02:42→19:21)
[2023-04-24] MEDS: APRESOLINE 5 MG IV (03:37)
[2023-04-24 03:53] LABS: Hematocrit 34.9 % (37.0-47.0); Hemoglobin 11.3 g/dL (12.0-16.0); Mean Corp Hgb Conc. 32.4 g/dL (33.0-37.0); Mean Corpuscular Hgb 29.1 pg (27.0-31.0); Mean Corpuscular Volume 89.9 fL (81.0-99.0); Mean Platelet Volume 9.1 fL (7.4-10.4); Platelet Count 486 10^3/uL (130-400); Red Blood Cell Count 3.88 10^6/uL (4.20-5.40); Red Cell Dist. Width 13.4 % (11.5-14.5); White Blood Cell Count 13.9 10^3/uL (4.8-10.8)
[2023-04-24 04:16] LABS: Blood Urea Nitrogen 17 mg/dl (7-17); Calcium 8.9 mg/dl (8.4-10.2); Carbon Dioxide 31 mmol/L (22-30); Chloride 97 mmol/L (98-107); Estimated Creatinine Clearance > 125 ml/min; Glucose 115 mg/dl (70-99); Potassium 4.5 mmol/L (3.5-5.1); Sodium 134 mmol/L (135-145); eGFR > 60.00
[2023-04-24] MEDS: TYLENOL 650 MG PO ×3 (05:25→21:32)
[2023-04-24] MEDS: VANCOCIN 300 ML IV ×3 (06:06→22:20)
[2023-04-24] MEDS: VANCOCIN 300 MG IV ×3 (06:06→22:20)
--- NOTE | 2023-04-24 06:54 | W.PN.HOSP.TC ---
Today's Communication/Plan
-
With continued diarrhea and uptick in white count normal check stool for C. difficile/hold MiraLAX
Continue steroid taper, titration of oxygen still at 5 L mid flow
Increase activity with get out of bed and PT OT modalities
Assessment / Plan
Assessment / Plan
HPI: 38-year-old with history of obesity, lymphedema, multiple episodes of cellulitis, hypertension, palpitations presenting with shortness of breath.� 2 weeks ago she felt like she had cold described as productive cough and hoarse voice.� Since
that time she is also noted drainage from her legs bilaterally and was concerned that she may have had cellulitis.� She was started on Keflex which she has been on for the past 5 days.� Since then she has been having increased shortness of breath
associate with increasing cough.� She denies fevers or chills, vomiting or abdominal pain or diarrhea.� She has tightness in her chest and in her back for the past day that is constant and she thinks is from coughing.
She denies any history of lung problems including asthma or COPD.� She denies smoking, alcohol or any drugs.
She has been seeing a client service executive due to occasional symptoms of palpitations and saw her client service executive last week without any official diagnosis of arrhythmia.
#Sepsis (fever, tachycardia, tachypnea) secondary to community-acquired pneumonia with severe dyspnea
#Acute hypoxic respiratory failure/with component of obstructive sleep apnea and hypoventilation from super morbid obesity
#History of MRSA positive sputum culture
Chest x-ray shows mild bilateral pneumonia, COVID and influenza negative/repeat chest x-ray today continues to show bilateral inflammatory infiltrates
Respiratory failure multifactorial due to pneumonia and body habitus
Tolerating mid flow oxygen for now and Precedex now off
Continue vancomycin, Zosyn, steroids now on slow steroid taper, bronchodilators
#Anxiety
, IV Ativan as needed
#Food addiction
Mom reports that patient is unable to stop eating, suspect she has a psychiatric component to her overeating
Consult psychiatry/again came back and saw yesterday and no active issues other than will need to address as outpatient her apparent eating disorder
#Bilateral lower extremity cellulitis superimposed on chronic lymphedema
Status post outpatient Keflex for 5 days
Covered with Vancomycin and Zosyn
#Essential hypertension, may need to hold metoprolol depending on blood pressure
#Hyperkalemia
K 5.1, was 5.2, was 5.4>>4.9>> 4.5
S/p Lokelma
Severe obesity due to excess calories
-Affects all aspects of care
Constipation>> diarrhea now from antibiotics
-Started MiraLAX
Palpitations
-Follows with cardiology outpatient, resumed metoprolol
Stage 2 buttocks pressure injury, POA
-Wound care, frequent turning
History of multiple episodes of cellulitis
DVT prophylaxis�SQ Lovenox
Full code
Updated mom at bedside 04/19
Total time spent to see the patient on the floor, examine the patient, review data and lab results, discuss treatment plan with patient, nursing staff around 52 minutes.
Physical Exam
General: Morbidly obese, no acute distress
HEENT: Normocephalic, Atraumatic, EOMI, MMM
Respiratory: Clear to Auscultation bilaterally
Cardiac: Normal S1/S2, Regular Rate and Rhythm
GI: Soft, Nontender, Nondistended, Normal Bowel Sounds
Extremities: No Clubbing, Cyanosis
Bilateral lower extremity lymphedema noted with erythema
Anticipated Discharge: > 48 hours
Subjective/Interval History
-
Date of Service: April 24, 2023
Remains arousable but goes right back to sleep on 5 L of mid flow overnight continues with no stooling/apparently was out of bed into a chair yesterday
Objective Data
-
Labs:
Laboratory Results
04/24/23
03:43
WBC 13.9 H
Hgb 11.3 L
Hct 34.9 L
Plt Count 486 H
Sodium 134 L
Potassium 4.5
Chloride 97 L
Carbon Dioxide 31 H
BUN 17
Creatinine 0.5 L
Glucose 115 H
Calcium 8.9
Vital Signs:
Vital Signs
Temp Pulse Resp BP Pulse Ox
98.2 F 79 24 166/78 91
04/24/23 03:31 04/24/23 06:00 04/24/23 06:00 04/24/23 06:00 04/24/23 06:00
I&O
04/22/23 04/23/23 04/24/23
06:59 06:59 06:59
Intake Total 1240 / 1240 990 / 990 980 / 980
Output Total 3700 / 3700 2800 / 2800 2250 / 2250
Balance -2460 / -2460 -1810 / -1810 -1270 / -1270
Review of Systems
-
History Source: Patient
Constitutional: Reports Weakness
Respiratory: Reports Trouble Breathing
Skin: Reports Sores
Physical Exam
-
General: Morbidly Obese (Super morbid)
HEENT: Normocephalic
Respiratory: Rhonchi and Decreased Breath Sounds
Cardiac: Regular Rhythm
GI: Soft
Genito-urinary: Clear Urine
Musculoskeletal: Edema, Right Lower Extrem and Edema, Left Lower Extrem
Skin: Ulcers (Dressed lower extremity)
Neuro: Awake, Oriented and Nonfocal/Grossly Intact
Data Reviewed
-
Total Time Spent with Patient (in minutes): 56
Labs: Labs Reviewed by me (Slight uptick in leukocytosis up to 13.9 today/chemistry stable)
[2023-04-24] MEDS: XOPENEX 1.25 MG INHALANT SOLUTION INH ×4 (07:40→19:37)
[2023-04-24] MEDS: TOPROL XL 25 MG PO (07:57)
[2023-04-24] MEDS: PROTONIX 40 MG PO (07:57)
[2023-04-24] MEDS: DELTASONE 40 MG PO (07:57)
[2023-04-24] MEDS: CLARITIN 10 MG PO (07:57)
[2023-04-24] MEDS: DESENEX/MITRAZOL/ZEASORB 1 APPLIC TOPICAL ×2 (08:01→19:22)
[2023-04-24] MEDS: HYDROPHOR 1 APPLIC TOPICAL (08:01)
--- NOTE | 2023-04-24 12:21 | W.PN.INTV ---
Today's Communication / Plan
Recommendations
O2
BPAP
Atbs
CS
OOB
IMU
Assessment
-
38-year-old female with past medical history of chronic lower extremity edema, cellulitis, hypertension, suspected DAVID presenting with increasing shortness of breath for the past few days. She feels this may have been triggered by an upper
respiratory infection for the past 2 weeks with productive cough and hoarse voice. Chest x-ray demonstrating interstitial pattern. On arrival, she was notably in distress with increased work of breathing, placed on BiPAP. She is admitted to ICU
for respiratory distress.
Acute hypoxic respiratory failure, O2 sherry 87%, placed on BiPAP
Pneumonia
Fever
Leukocytosis
Recent outpatient treatment for cellulitis, Keflex x 5 days
Possible upper respiratory infection
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
Super morbid obesity, BMI 81
Suspected DAVID, never underwent HST
Hypertension
Palpitations
Plan
No current signs of metabolic encephalopathy or MS changes/following commands
Denies pain at this time.
Pain/sedation: Precedex discontinued
RASS goals: 0
Hemodynamically stable, not requiring pressors.
Cardiac history reviewed -- HTN
Prior ECHO showing preserved function, proBNP slightly elevated
Resumed on home meds
Monitor on telemetry
Required NIV: daytime and nighttime initially, then only qhs at 20/10
Planned to resume BPAP on night of 04-21 at 20/10 with O2 8L but was able to stay on O2 NC 10L last night
Now able to do O2 NC during daytime
Currently on O2 wean from 15L to 7L, POx 96%
Was refusing NIV or BPAP, but has been reasonably stable on O2 NC
Accepted BPAP 04-23, used for 5 hrs with no issue, will continue qhs and prn
Empiric dexam since adm, continue for now for bronchitic symptoms, currently at 4 mg IV q12
Changed to prednisone 40 mg qd 04-23, will taper by 10 mg q2d to off
Prior history of lung disease: Super morbid obesity, suspected underlying DAVID, untreated
CXR/CT reviewed indicating possible infection, though pattern is more diffuse and interstitial
Repeat CXR showing diffuse patchy infiltrates worsening from prior
Prior CT was also reviewed indicating normal parenchyma
Repeat CXR 04-22 with, considering differences in technique, improvement of bilateral infitrates
Speech evaluation ordered 04-22: reg solids and thin liquids
Aspiration precautions, HOB > 30 degrees
Started protonix po 04-22 as reflux suspected
Creat at baseline, no history of renal disease
Void trials
Follow urine output, critical I/Os
Replete electrolytes as needed
Fever and increased WBC on presentation, suspect possible upper respiratory infection
Febrile on adm up to 101F, afebrile since evening 04-15
Continue empiric antibiotics: zosyn/vancomycin at D8 on 04-22, to complete at least 10 d course and d/c
Micro/Cultures reviewed:
Bloodx1 so far negative 04/15/23
Sputum neg 04/16/23, neg strep/leg Ag, flu neg, recheck sputum c yeast 04-19
Urine neg 04/15/23
MRSA positive 04-16 and in Dec 2022 (negative in Feb 2023)
Follow fever trend, WBC count
CXR 04-22: mild improvement in bilateral pulm infiltrates
On miralax, reportedly mild diarrhea, sent for Cdiff 04-24
CBC stable, no signs of bleeding or coagulopathy.
DVT prophylaxis as assessed based on risk, including mechanical SCDs
Can transfuse if indicated for Hb <7, plt < 10
No prior h/o diabetes or thyroid disease
Monitor accuchecks PRN/SS coverage if needed
OOB to chair as tolerated
D/w parents at bedside 04-21
D/w MDT
Stable for IMU, pulm will follow
Diagnostic Data
CXR 04-22-23: bilateral pulm infiltrates with mild improvement
CXR 04-18-23 c/w below, underpenetrated poor quality film but seemingly worse bilat infiltrates
Chest X-Ray: 04/15/23- New findings concerning for mild bilateral pneumonia. Findings related to limited inspiration cannot be completely excluded. Clinical and laboratory correlation recommended.
CHEST 03/31/23- Limited study demonstrating no active cardiopulmonary disease. There is no large central pulmonary embolus. Evaluation for peripheral pulmonary embolism is limited by the patient's large size
TTE 02-27-23: very technically difficult, contrasted, LVEF 55-60%
Subjective Dataa
Subjective Data
Date of Service:
Date of Service: April 24, 2023
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
Subjective:
No major events reported overnight
She accepted to use BiPAP last night use it for over 5 hours
Using daytime oxygen, down to 6 L saturation 92%
Review of Systems
General: Fever (n), Sweats (n), Chills (n) and Satisfactory Appetite
HEENT: Epistaxis (n) and Dysphagia
Cardiopulmonary: Dyspnea, Cough (trace), Sputum Production (n), Chest Pain, Edema (GEOVANNI) and Hemoptysis (n)
GI: Abdominal Pain (n), Nausea (n) and Vomiting (n)
Neuro: Weakness
Objective Data
Data Reviewed
Vital Signs / I&O / Oxygen:
Vital Signs
Temp Pulse Resp BP Pulse Ox
98.2 F 78 26 122/66 95
04/24/23 11:33 04/24/23 11:39 04/24/23 11:39 04/24/23 08:00 04/24/23 11:39
Intake and Output
04/23/23 04/24/23 04/25/23
06:59 06:59 06:59
Intake Total 990 / 990 980 / 980 290 / 290
Output Total 2800 / 2800 2250 / 2250 300 / 300
Balance -1810 / -1810 -1270 / -1270 - -10
SaO2 [NIV (Non Invasive 94
Ventilation)]
SaO2 95
Nasal Cannula flow liters per 5
minute
Physical Exam
General: Respiratory Distress (mild) and Other (morbidly obese, anxious appearing)
HEENT: Normocephalic, Anicteric, Moist Mucous Membranes and Other (poor oral hygiene)
Cardiovascular: S1-S2, Regular Rhythm, Murmur (n), JVD, Peripheral Edema (chronic LE wounds b/l with wrap) and Calf Tenderness (n)
Respiratory: Clear (decreased overall BS, due to BH), Wheeze (n), Rhonchi, Accessory Resp Muscle Use (with NIV on) and Stridor (n)
GI: Soft, Distended (protuberant, obese) and Non Tender
Neurology: Awake, Alert, Oriented, AO x 3, No Motor Deficits and Depressed (appearing, not answering while on NIV)
Skin: Warm and Dry
Labs/Micro/Reports
Lab Data
04/24/23 03:43
04/24/23 03:43
Microbiology
04/19/23 12:30 Sputum Respiratory Culture - Final
Yeast
04/19/23 12:30 Sputum Gram Stain - Final
--- NOTE | 2023-04-24 12:56 | CM ---
CM following re: discharge planning.
Discussed in rounds, reviewed pt's chart, met with pt.
Pt is aware she is very deconditioned and PT/OT recommend SNF level of care and pt expressed her agreement with going to a SNF for a short term rehab. CM explained to the pt that [facility] is the only [facility] that has bariatric unit and pt
expressed her agreement with going to [facility] for a short term rehab.
A referral to [facility] made. Awaiting for determination.
D/C plan: [facility] for a short term rehab.
CM will follow with discharge plan updates as hospitalization progresses
[2023-04-24] MEDS: LOVENOX 60 MG SC (17:21)
[2023-04-24] MEDS: MELATONIN 10 MG PO (21:32)
[2023-04-25] VITALS (12 sets, daily range): BP systolic 131–157; BP diastolic 42–94; PULSE 2–82; BMI 75.7
--- NOTE | 2023-04-25 02:46 | PTCARENOTE ---
Rec'd care of patient @ 1914. AAOx3. MAEx4. Turning and boosting self in bed. NSR on tele monitor. +3 edema in b/l LE. +PP. Compression wraps removed HS. POX 94-95% on 5L MF. Transitioned to BiPAP mask 15/5 5L HS by RT. Lung sounds
shallow/diminished throughout with expiratory wheeze. Dry cough present; non-productive. Voiding via purewick. Koki care performed and Desenex powder and Calazime cream applied to MASD. Call [facility]more within reach. Full care and assessment as charted on
worklist.
--- NOTE | 2023-04-25 02:56 | PTCARENOTE ---
Patient's POX dropping to 70's briefly before increasing back to 90's. RT in room during desaturation. BiPAP settings increased to 18/8.
[2023-04-25 04:23] LABS: Hematocrit 35.3 % (37.0-47.0); Hemoglobin 11.6 g/dL (12.0-16.0); Mean Corp Hgb Conc. 32.9 g/dL (33.0-37.0); Mean Corpuscular Hgb 28.6 pg (27.0-31.0); Mean Corpuscular Volume 87.2 fL (81.0-99.0); Mean Platelet Volume 8.9 fL (7.4-10.4); Platelet Count 512 10^3/uL (130-400); Red Blood Cell Count 4.05 10^6/uL (4.20-5.40); Red Cell Dist. Width 13.9 % (11.5-14.5)
[2023-04-25 04:46] LABS: Blood Urea Nitrogen 17 mg/dl (7-17); Calcium 8.7 mg/dl (8.4-10.2); Carbon Dioxide 30 mmol/L (22-30); Chloride 100 mmol/L (98-107); Estimated Creatinine Clearance > 125 ml/min; Glucose 110 mg/dl (70-99); Potassium 4.5 mmol/L (3.5-5.1); Sodium 134 mmol/L (135-145); eGFR > 60.00
[2023-04-25] MEDS: TYLENOL PO ×2 (06:23→13:00)
--- NOTE | 2023-04-25 06:47 | W.PN.HOSP.TC ---
Today's Communication/Plan
-
Concern over increasing leukocytosis and desaturations overnight on BiPAP
Obtain repeat chest x-ray
Continue prednisone and present course of antibiotic
Repeat procalcitonin
Assessment / Plan
Assessment / Plan
HPI: 38-year-old with history of obesity, lymphedema, multiple episodes of cellulitis, hypertension, palpitations presenting with shortness of breath.� 2 weeks ago she felt like she had cold described as productive cough and hoarse voice.� Since
that time she is also noted drainage from her legs bilaterally and was concerned that she may have had cellulitis.� She was started on Keflex which she has been on for the past 5 days.� Since then she has been having increased shortness of breath
associate with increasing cough.� She denies fevers or chills, vomiting or abdominal pain or diarrhea.� She has tightness in her chest and in her back for the past day that is constant and she thinks is from coughing.
She denies any history of lung problems including asthma or COPD.� She denies smoking, alcohol or any drugs.
She has been seeing a oncology specialist due to occasional symptoms of palpitations and saw her oncology specialist last week without any official diagnosis of arrhythmia.
#Sepsis (fever, tachycardia, tachypnea) secondary to community-acquired pneumonia with severe dyspnea
#Acute hypoxic respiratory failure/with component of obstructive sleep apnea and hypoventilation from super morbid obesity
#History of MRSA positive sputum culture
Chest x-ray shows mild bilateral pneumonia, COVID and influenza negative/repeat chest x-ray today continues to show bilateral inflammatory infiltrates
Respiratory failure multifactorial due to pneumonia and body habitus
Tolerating mid flow oxygen for now and Precedex now off
Continue vancomycin, Zosyn, steroids now on slow steroid taper, bronchodilators
-Leukocytosis has been trending down now up to last 2 days with increasing cough and congestion/repeat chest x-ray today
#Anxiety
, IV Ativan as needed
#Food addiction
Mom reports that patient is unable to stop eating, suspect she has a psychiatric component to her overeating
Consult psychiatry/again came back and saw yesterday and no active issues other than will need to address as outpatient her apparent eating disorder
#Bilateral lower extremity cellulitis superimposed on chronic lymphedema
Status post outpatient Keflex for 5 days
Covered with Vancomycin and Zosyn
#Essential hypertension, may need to hold metoprolol depending on blood pressure
#Hyperkalemia
K 5.1, was 5.2, was 5.4>>4.9>> 4.5
S/p Lokelma
Severe obesity due to excess calories
-Affects all aspects of care
Constipation>> diarrhea now from antibiotics
-Started MiraLAX
Palpitations
-Follows with cardiology outpatient, resumed metoprolol
Stage 2 buttocks pressure injury, POA
-Wound care, frequent turning
History of multiple episodes of cellulitis
DVT prophylaxis�SQ Lovenox
Full code
Updated mom at bedside 04/19
Total time spent to see the patient on the floor, examine the patient, review data and lab results, discuss treatment plan with patient, nursing staff around 52 minutes.
Physical Exam
General: Morbidly obese, no acute distress
HEENT: Normocephalic, Atraumatic, EOMI, MMM
Respiratory: Clear to Auscultation bilaterally
Cardiac: Normal S1/S2, Regular Rate and Rhythm
GI: Soft, Nontender, Nondistended, Normal Bowel Sounds
Extremities: No Clubbing, Cyanosis
Bilateral lower extremity lymphedema noted with erythema
Anticipated Discharge: > 48 hours
Subjective/Interval History
-
Date of Service: April 25, 2023
On NIV overnight increasing the congestion and cough with desaturation early in the morning requiring BiPAP settings to be increased/had been on 5 L throughout the day yesterday on mid flow
Objective Data
-
Labs:
Laboratory Results
04/25/23
04:15
WBC 15.0 H
Hgb 11.6 L
Hct 35.3 L
Plt Count 512 H
Sodium 134 L
Potassium 4.5
Chloride 100
Carbon Dioxide 30
BUN 17
Creatinine 0.5 L
Glucose 110 H
Calcium 8.7
Vital Signs:
Vital Signs
Temp Pulse Resp BP Pulse Ox
98.5 F 81 27 146/80 92
04/25/23 04:17 04/25/23 06:00 04/25/23 06:00 04/25/23 06:00 04/25/23 06:00
I&O
04/23/23 04/24/23 04/25/23
06:59 06:59 06:59
Intake Total 990 / 990 980 / 980 1900 / 1900
Output Total 2800 / 2800 2250 / 2250 2750 / 2750
Balance -1810 / -1810 -1270 / -1270 -850 / -850
Review of Systems
-
History Source: Patient
Constitutional: Denies Fever
Respiratory: Reports Trouble Breathing
Abdomen/GI: Reports No Symptoms
Musculoskeletal: Reports Edema
Psych: Reports Depressed
Physical Exam
-
General: Appears Chronically Ill and Morbidly Obese (Super morbid obesity)
HEENT: Normocephalic
Respiratory: Wheezes and Rhonchi
Cardiac: S1/S2
GI: Soft
Neuro: Awake
Data Reviewed
-
Total Time Spent with Patient (in minutes): 56
Labs: Labs Reviewed by me (Increasing leukocytosis)
[2023-04-25] MEDS: XOPENEX 1.25 MG INHALANT SOLUTION INH ×4 (07:30→19:27)
--- NOTE | 2023-04-25 07:50 | W.PN.INTV ---
Today's Communication / Plan
Recommendations
O2
BPAP
BDs
CS taper
Assessment
-
38-year-old female with past medical history of chronic lower extremity edema, cellulitis, hypertension, suspected DAVID presenting with increasing shortness of breath for the past few days. She feels this may have been triggered by an upper
respiratory infection for the past 2 weeks with productive cough and hoarse voice. Chest x-ray demonstrating interstitial pattern. On arrival, she was notably in distress with increased work of breathing, placed on BiPAP. She is admitted to ICU
for respiratory distress.
Acute hypoxic respiratory failure, O2 sherry 87%, placed on BiPAP
Pneumonia
Fever
Leukocytosis
Recent outpatient treatment for cellulitis, Keflex x 5 days
Possible upper respiratory infection
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
Super morbid obesity, BMI 81
Suspected DAVID, never underwent HST
Hypertension
Palpitations
Plan
No current signs of metabolic encephalopathy or MS changes/following commands
Denies pain at this time.
Pain/sedation: Precedex discontinued
RASS goals: 0
Hemodynamically stable, not requiring pressors.
Cardiac history reviewed -- HTN
Prior ECHO showing preserved function, proBNP slightly elevated
Resumed on home meds
Monitor on telemetry
Required NIV: daytime and nighttime initially, then only qhs at 20/10
Planned to resume BPAP on night of 04-21 at 20/10 with O2 8L but was able to stay on O2 NC 10L last night
Now able to do O2 NC during daytime
Currently on O2 wean from 15L to 7L, POx 96%
Was refusing NIV or BPAP, but has been reasonably stable on O2 NC
Accepted BPAP 04-23, used for 5 hrs with no issue, will continue qhs and prn
Empiric dexam since adm, continue for now for bronchitic symptoms, currently at 4 mg IV q12
Changed to prednisone 40 mg qd 04-23, will taper by 10 mg q2d to off
Prior history of lung disease: Super morbid obesity, suspected underlying DAVID, untreated
CXR/CT reviewed indicating possible infection, though pattern is more diffuse and interstitial
Repeat CXR showing diffuse patchy infiltrates worsening from prior
Prior CT was also reviewed indicating normal parenchyma
Repeat CXR 04-22 with, considering differences in technique, improvement of bilateral infitrates
Speech evaluation ordered 04-22: reg solids and thin liquids
Aspiration precautions, HOB > 30 degrees
Started protonix po 04-22 as reflux suspected
Creat at baseline, no history of renal disease
Void trials
Follow urine output, critical I/Os
Replete electrolytes as needed
Fever and increased WBC on presentation, suspect possible upper respiratory infection
Febrile on adm up to 101F, afebrile since evening 04-15
Continue empiric antibiotics: zosyn/vancomycin, complete at least 10 d course 04-24, now d/c'ed
Micro/Cultures reviewed:
Bloodx1 so far negative 04/15/23
Sputum neg 04/16/23, neg strep/leg Ag, flu neg, recheck sputum c yeast 04-19
Urine neg 04/15/23
MRSA positive 04-16 and in Dec 2022 (negative in Feb 2023)
Follow fever trend, WBC count
CXR 04-22: mild improvement in bilateral pulm infiltrates
On miralax, reportedly mild diarrhea, sent for Cdiff 04-24
CBC stable, no signs of bleeding or coagulopathy.
DVT prophylaxis as assessed based on risk, including mechanical SCDs
Can transfuse if indicated for Hb <7, plt < 10
No prior h/o diabetes or thyroid disease
Monitor accuchecks PRN/SS coverage if needed
OOB to chair as tolerated
D/w parents at bedside 04-21
D/w MDT
IMU level of care, pulm will follow
Diagnostic Data
CXR 04-22-23: bilateral pulm infiltrates with mild improvement
CXR 04-18-23 c/w below, underpenetrated poor quality film but seemingly worse bilat infiltrates
Chest X-Ray: 04/15/23- New findings concerning for mild bilateral pneumonia. Findings related to limited inspiration cannot be completely excluded. Clinical and laboratory correlation recommended.
CHEST 03/31/23- Limited study demonstrating no active cardiopulmonary disease. There is no large central pulmonary embolus. Evaluation for peripheral pulmonary embolism is limited by the patient's large size
TTE 02-27-23: very technically difficult, contrasted, LVEF 55-60%
Subjective Dataa
Subjective Data
Date of Service:
Date of Service: April 25, 2023
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
Subjective:
No major events reported overnight
Use BiPAP with no issue overnight
Reports clinical improvement
Want to try to go to the chair today
Review of Systems
General: Fever (n), Sweats (n), Chills and Satisfactory Appetite
Cardiopulmonary: Dyspnea and Cough (resolving)
GI: Abdominal Pain (n), Nausea (n) and Vomiting
Neuro: Weakness
Objective Data
Data Reviewed
Vital Signs / I&O / Oxygen:
Vital Signs
Temp Pulse Resp BP Pulse Ox
98.5 F 72 22 146/80 95
04/25/23 04:17 04/25/23 07:35 04/25/23 07:35 04/25/23 06:00 04/25/23 07:35
Intake and Output
04/24/23 04/25/23 04/26/23
06:59 06:59 06:59
Intake Total 980 / 980 1900 / 1900
Output Total 2250 / 2250 2750 / 2750
Balance -1270 / -1270 -850 / -850
SaO2 [NIV (Non Invasive 94
Ventilation)]
SaO2 95
Nasal Cannula flow liters per 5
minute
Physical Exam
General: Respiratory Distress (mild) and Other (morbidly obese, anxious appearing)
HEENT: Normocephalic, Anicteric, Moist Mucous Membranes and Other (poor oral hygiene)
Cardiovascular: S1-S2, Regular Rhythm, Murmur (n), JVD, Peripheral Edema (chronic LE wounds b/l with wrap) and Calf Tenderness (n)
Respiratory: Clear (decreased overall BS, due to BH), Wheeze (n), Rhonchi, Accessory Resp Muscle Use (with NIV on) and Stridor (n)
GI: Soft, Distended (protuberant, obese) and Non Tender
Neurology: Awake, Alert, Oriented, AO x 3, No Motor Deficits and Depressed (appearing, not answering while on NIV)
Skin: Warm and Dry
Labs/Micro/Reports
Lab Data
04/25/23 04:15
04/25/23 04:15
--- NOTE | 2023-04-25 08:00 | PTCARENOTE ---
Patient received from maintenance supervisor 2nd shift, presents as assessed. Patient is alert and oriented x3. NSR on the monitor, edema as noted. Patient maintains on MFNC. Abdomen large, morbidly obese, non-tender. Purewick in place for urinary incontinence. Wound
dressings CDI. Patient resting comfortably in bed, offers no complaints at this time.
[2023-04-25] MEDS: DELTASONE 30 MG PO (08:13)
[2023-04-25] MEDS: PROTONIX 40 MG PO (08:13)
[2023-04-25] MEDS: TOPROL XL 25 MG PO (08:13)
[2023-04-25] MEDS: CLARITIN 10 MG PO (08:13)
[2023-04-25] MEDS: HYDROPHOR 1 APPLIC TOPICAL (08:14)
[2023-04-25] MEDS: DESENEX/MITRAZOL/ZEASORB 1 APPLIC TOPICAL ×2 (08:14→20:14)
[2023-04-25] MEDS: TYLENOL 650 MG PO ×2 (08:19→20:22)
[2023-04-25 09:19] LABS: Procalcitonin < 0.05 ng/ml (0.0-0.25)
--- NOTE | 2023-04-25 11:12 | PTCARENOTE ---
Patient assist x1 to sit at side of the bed. Some NICKERSON, overall tolerated well.
[2023-04-25] MEDS: LOVENOX 60 MG SC (17:30)
[2023-04-25] MEDS: MELATONIN 10 MG PO (21:50)
[2023-04-26] VITALS (8 sets, daily range): BP systolic 126–155; BP diastolic 71–99; PULSE 2–95; BMI 75.6
--- NOTE | 2023-04-26 04:39 | PTCARENOTE ---
Rec'd care of patient at 1900. Patient alert and oriented. Transitioned from 5L MF to BiPAP HS. No complaints overnight. VSS. Patient eager to move about bed independently.
[2023-04-26 05:09] LABS: Hematocrit 37.4 % (37.0-47.0); Hemoglobin 12.2 g/dL (12.0-16.0); Mean Corp Hgb Conc. 32.6 g/dL (33.0-37.0); Mean Corpuscular Hgb 29.4 pg (27.0-31.0); Mean Corpuscular Volume 90.1 fL (81.0-99.0); Mean Platelet Volume 9.2 fL (7.4-10.4); Platelet Count 504 10^3/uL (130-400); Red Blood Cell Count 4.15 10^6/uL (4.20-5.40); Red Cell Dist. Width 14.1 % (11.5-14.5); White Blood Cell Count 14.6 10^3/uL (4.8-10.8)
[2023-04-26 05:31] LABS: ALT (SGPT) 98 U/L (0-35); AST (SGOT) 56 U/L (14-36); Albumin 3.3 g/dl (3.5-5.0); Alkaline Phosphatase 65 U/L (38-126); Blood Urea Nitrogen 22 mg/dl (7-17); Calcium 9.2 mg/dl (8.4-10.2); Carbon Dioxide 30 mmol/L (22-30); Chloride 101 mmol/L (98-107); Estimated Creatinine Clearance > 125 ml/min; Glucose 112 mg/dl (70-99); Potassium 4.6 mmol/L (3.5-5.1); Sodium 134 mmol/L (135-145); Total Bilirubin 0.6 mg/dl (0.2-1.3); Total Protein 6.9 g/dl (6.3-8.2); eGFR > 60.00
--- NOTE | 2023-04-26 06:34 | W.PN.HOSP.TC ---
Today's Communication/Plan
-
Transfer to telemetry status yesterday
Now off antibiotic
Leukocytosis continues to trend down and chest x-ray stable
Will now need to increase her activity and no doubt will need an extended course of rehab
Continue slowed steroid taper and pulmonary still following
Requires nightly BiPAP and presently on 5 L of mid flow now will continue to be titrated
Assessment / Plan
Assessment / Plan
HPI: 38-year-old with history of obesity, lymphedema, multiple episodes of cellulitis, hypertension, palpitations presenting with shortness of breath.� 2 weeks ago she felt like she had cold described as productive cough and hoarse voice.� Since
that time she is also noted drainage from her legs bilaterally and was concerned that she may have had cellulitis.� She was started on Keflex which she has been on for the past 5 days.� Since then she has been having increased shortness of breath
associate with increasing cough.� She denies fevers or chills, vomiting or abdominal pain or diarrhea.� She has tightness in her chest and in her back for the past day that is constant and she thinks is from coughing.
She denies any history of lung problems including asthma or COPD.� She denies smoking, alcohol or any drugs.
She has been seeing a concrete pipe machine operator due to occasional symptoms of palpitations and saw her concrete pipe machine operator last week without any official diagnosis of arrhythmia.
#Sepsis (fever, tachycardia, tachypnea) secondary to community-acquired pneumonia with severe dyspnea
#Acute hypoxic respiratory failure/with component of obstructive sleep apnea and hypoventilation from super morbid obesity
#History of MRSA positive sputum culture
Chest x-ray shows mild bilateral pneumonia, COVID and influenza negative/repeat chest x-ray today continues to show bilateral inflammatory infiltrates
Respiratory failure multifactorial due to pneumonia and body habitus
Tolerating mid flow oxygen for now and Precedex now off
Continue vancomycin, Zosyn, steroids now on slow steroid taper, bronchodilators/latest procalcitonin measured April 25 was normal/now off antibiotics
-Leukocytosis has been trending down
#Anxiety
, IV Ativan as needed
#Food addiction
Mom reports that patient is unable to stop eating, suspect she has a psychiatric component to her overeating
Consult psychiatry/again came back and saw yesterday and no active issues other than will need to address as outpatient her apparent eating disorder
#Bilateral lower extremity cellulitis superimposed on chronic lymphedema
Status post outpatient Keflex for 5 days
Covered with Vancomycin and Zosyn
#Essential hypertension, may need to hold metoprolol depending on blood pressure
#Hyperkalemia
K 5.1, was 5.2, was 5.4>>4.9>> 4.5
S/p Lokelma
Severe obesity due to excess calories
-Affects all aspects of care
Constipation>> diarrhea now from antibiotics
-Started MiraLAX
Palpitations
-Follows with cardiology outpatient, resumed metoprolol
Stage 2 buttocks pressure injury, POA
-Wound care, frequent turning
History of multiple episodes of cellulitis
DVT prophylaxis�SQ Lovenox
Full code
Updated mom at bedside 04/19
Total time spent to see the patient on the floor, examine the patient, review data and lab results, discuss treatment plan with patient, nursing staff around 52 minutes.
Physical Exam
General: Morbidly obese, no acute distress
HEENT: Normocephalic, Atraumatic, EOMI, MMM
Respiratory: Clear to Auscultation bilaterally
Cardiac: Normal S1/S2, Regular Rate and Rhythm
GI: Soft, Nontender, Nondistended, Normal Bowel Sounds
Extremities: No Clubbing, Cyanosis
Bilateral lower extremity lymphedema noted with erythema
Anticipated Discharge: 24 - 48 hours
Subjective/Interval History
-
Date of Service: April 26, 2023
Had uneventful night after being placed back on BiPAP was on 5 L blood flow throughout the day yesterday PT tried to sit her up on side of bed with onset of dyspnea with any activity.
Objective Data
-
Labs:
Laboratory Results
04/26/23
04:48
WBC 14.6 H
Hgb 12.2
Hct 37.4
Plt Count 504 H
Sodium 134 L
Potassium 4.6
Chloride 101
Carbon Dioxide 30
BUN 22 H
Creatinine 0.5 L
Glucose 112 H
Calcium 9.2
Total Bilirubin 0.6
AST 56 H
ALT 98 H
Alkaline Phosphatase 65
Vital Signs:
Vital Signs
Temp Pulse Resp BP Pulse Ox
97.2 F 84 30 126/80 95
04/26/23 03:25 04/26/23 04:23 04/26/23 04:23 04/26/23 04:23 04/26/23 04:23
I&O
04/24/23 04/25/23 04/26/23
06:59 06:59 06:59
Intake Total 980 / 980 1900 / 1900 480 / 480
Output Total 2250 / 2250 2750 / 2750 500 / 500
Balance -1270 / -1270 -850 / -850 -20 / -20
Review of Systems
-
History Source: Patient
Constitutional: Reports Fatigue and Weakness; Denies Fever
Respiratory: Reports Trouble Breathing
Physical Exam
-
General: Morbidly Obese (Super morbid obesity)
HEENT: PERRLA
Respiratory: Rhonchi and Crackles
Cardiac: Regular Rhythm
GI: Soft and Nontender
Skin: Ulcers (Lower extremity ulcers dressed)
Neuro: Awake
Data Reviewed
-
Total Time Spent with Patient (in minutes): 56
Diagnostic Radiology: Report Reviewed by me (Latest chest x-ray performed yesterday shows stability of bilateral airspace disease but no worsening)
Labs: Labs Reviewed by me (White count continues to slowly trend down/procalcitonin was 0.05)
[2023-04-26] MEDS: XOPENEX 1.25 MG INHALANT SOLUTION INH ×4 (07:26→19:21)
--- NOTE | 2023-04-26 08:45 | PTCARENOTE ---
Assumed care of pt at 0715 following shift report. Pt asleep but woken to name. Drowsy initially but w/ time more alert and talkative. Denies any c/o pain or SOB. POx 94% on O2 at 5l/min MF. Rare TELEPHONE ASSEMBLER cough. AM meds administered. Pt incontinent of
large amount of reggie urine- bed linens changed and betsy-care/skin care provided. Pt able to assist w/ repositioning self in bed. NICKERSON noted. Pure wick replaced. Call [facility] as well as phone to order breakfast w/in pt reach. Safe environment
maintained.
[2023-04-26] MEDS: TOPROL XL 25 MG PO (08:46)
[2023-04-26] MEDS: CLARITIN 10 MG PO (08:46)
[2023-04-26] MEDS: DELTASONE 30 MG PO (08:46)
[2023-04-26] MEDS: PROTONIX 40 MG PO (08:46)
[2023-04-26] MEDS: HYDROPHOR 1 APPLIC TOPICAL (08:47)
[2023-04-26] MEDS: DESENEX/MITRAZOL/ZEASORB 1 APPLIC TOPICAL ×2 (08:47→23:21)
--- NOTE | 2023-04-26 10:30 | PTCARENOTE ---
Assisted pt on bedpan. Stool specimen mixed with urine. Unable to send stool for c-diff. Her bed pad was damp with urine as well. Cleansed, and new purwick placed. She was able to assist with turning and repositioning. +NICKERSON. Safe environment
maintained. Enhanced precautions maintained.
--- NOTE | 2023-04-26 12:48 | W.PN.PUL3 ---
Today's Communication / Plan
-
O2 NC
BPAP
Pred taper
OOB
Telem
Assessment
-
Assessment
38-year-old female with past medical history of chronic lower extremity edema, cellulitis, hypertension, suspected DAVID presenting with increasing shortness of breath for the past few days. She feels this may have been triggered by an upper
respiratory infection for the past 2 weeks with productive cough and hoarse voice. Chest x-ray demonstrating interstitial pattern. On arrival, she was notably in distress with increased work of breathing, placed on BiPAP. She is admitted to ICU
for respiratory distress.
Acute hypoxic respiratory failure, O2 sherry 87%, placed on BiPAP
Pneumonia
Fever
Leukocytosis
Recent outpatient treatment for cellulitis, Keflex x 5 days
Possible upper respiratory infection
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
Super morbid obesity, BMI 81
Suspected DAVID, never underwent HST
Hypertension
Palpitations
Plan
Acute hypoxemia
Required NIV: daytime and nighttime initially, then only qhs at 20/10
Planned to resume BPAP on night of 04-21 at 20/10 with O2 8L but was able to stay on O2 NC 10L last night
Now doing well on O2 NC during daytime
Currently on O2 wean from 15L to 6L, POx 95%
Was refusing NIV or BPAP, but was reasonably stable on O2 NC
Accepted BPAP 04-23, used for 5 hrs with no issue, will continue qhs and prn
Empiric dexam since adm, continue for now for bronchitic symptoms, currently at 4 mg IV q12
Changed to prednisone 40 mg qd 04-23, will taper by 10 mg q2d to off
Prior history of lung disease: Super morbid obesity, suspected underlying DAVID, untreated, needs PSG as outpatient
CXR/CT reviewed indicating possible infection, though pattern is more diffuse and interstitial
Repeat CXR showing diffuse patchy infiltrates worsening from prior
Prior CT was also reviewed indicating normal parenchyma
Received empiric antibiotics: zosyn/vancomycin, complete at least 10 d course 04-24, now d/c'ed
Fever and increased WBC on presentation, suspect possible upper respiratory infection
Febrile on adm up to 101F, afebrile since evening 04-15
Micro/Cultures reviewed:
Bloodx1 so far negative 04/15/23
Sputum neg 04/16/23, neg strep/leg Ag, flu neg, recheck sputum c yeast 04-19
Urine neg 04/15/23
MRSA positive 04-16 and in Dec 2022 (negative in Feb 2023)
Follow fever trend, WBC count
Empiric dexam since adm, continue for now for bronchitic symptoms
Changed to prednisone 40 mg qd 04-23, will taper by 10 mg q2d to off
CXR 04-22 and : mild progressive improvement in bilateral pulm infiltrates
Speech evaluation ordered 04-22: reg solids and thin liquids
Started protonix po 04-22 as reflux suspected
Creat at baseline, no history of renal disease
Void trials
Follow urine output, critical I/Os
Replete electrolytes as needed
Hemodynamically stable, not requiring pressors.
Cardiac history reviewed -- HTN
Prior ECHO showing preserved function, proBNP slightly elevated
Resumed on home meds
Monitor on telemetry
Creat at baseline, no history of renal disease
Void trials
Follow urine output, critical I/Os
Replete electrolytes as needed
CBC stable, no signs of bleeding or coagulopathy.
DVT prophylaxis as assessed based on risk, including mechanical SCDs
Can transfuse if indicated for Hb <7, plt < 10
No prior h/o diabetes or thyroid disease
Monitor accuchecks PRN/SS coverage if needed
OOB to chair as tolerated
D/w parents at bedside 04-21
D/w MDT
Stable for telemetry, still housing at ICU
Diagnostic Data
CXR 04-22-23: bilateral pulm infiltrates with mild improvement
CXR 04-18-23 c/w below, underpenetrated poor quality film but seemingly worse bilat infiltrates
Chest X-Ray: 04/15/23- New findings concerning for mild bilateral pneumonia. Findings related to limited inspiration cannot be completely excluded. Clinical and laboratory correlation recommended.
CHEST 03/31/23- Limited study demonstrating no active cardiopulmonary disease. There is no large central pulmonary embolus. Evaluation for peripheral pulmonary embolism is limited by the patient's large size
TTE 02-27-23: very technically difficult, contrasted, LVEF 55-60%
Subjective Data
-
Date of Service:
Date of Service: April 26, 2023
Chief Complaint: Pulmonary Follow Up
Subjective:
No major events reported overnight
Clinical improvement continues
Oxygen requirement has continued declining
Review of Systems
General: Fever (n), Sweats (n), Chills (n) and Satisfactory Appetite
HEENT: Epistaxis (n) and Dysphagia
Cardiopulmonary: Dyspnea, Cough (trace), Sputum Production (n) and Wheezing (n)
GI: Abdominal Pain (n), Nausea (n) and Vomiting (n)
Neuro: Weakness
Objective Data
Data Reviewed
Vital Signs / I&O / Oxygen:
Vital Signs
Temp Pulse Resp BP Pulse Ox
99.1 F 86 20 150/85 95
04/26/23 11:31 04/26/23 11:05 04/26/23 11:05 04/26/23 08:46 04/26/23 11:05
Intake and Output
04/25/23 04/26/23 04/27/23
06:59 06:59 06:59
Intake Total 1900 / 1900 480 / 480
Output Total 2750 / 2750 500 / 500
Balance -850 / -850 -20 / -20
SaO2 [NIV (Non Invasive 94
Ventilation)]
SaO2 95
Nasal Cannula flow liters per 5
minute
Physical Exam
General: Respiratory Distress (improving)
HEENT: Normocephalic and Moist Mucous Membranes
Cardiovascular: Regular Rhythm, Murmur (n), Peripheral Edema (chronic GEOVANNI) and Calf Tenderness (n)
Respiratory: Crackles, Rhonchi, Accessory Resp Muscle Use (mild) and Stridor (n)
GI: Soft, Non Distended and Non Tender
Neurology: Awake, AO x 3 and No Motor Deficits
Skin: Dry
Labs/Micro/Reports
Lab Data
04/26/23 04:48
04/26/23 04:48
--- NOTE | 2023-04-26 16:45 | PTCARENOTE ---
L/E wound care performed. Compression therapy applied. Pt was abke to assist with lifting her leg.
--- NOTE | 2023-04-26 17:00 | PTCARENOTE ---
PM care performed on the pt. Pericare including new purwick due to leakage, calazime cream and desenex powder applied to abdominal folds. Lungs CTA posteriorly. 95% on 5 lifters midlflow. Repositioned in bed. Safe environment maintained.
[2023-04-26] MEDS: LOVENOX 60 MG SC (17:50)
[2023-04-26] MEDS: MELATONIN 10 MG PO (23:20)
[2023-04-27] VITALS (13 sets, daily range): BP systolic 124–166; BP diastolic 66–93; PULSE 2–99; O2SAT 95; BMI 74.8
--- NOTE | 2023-04-27 04:57 | PTCARENOTE ---
Pt slept well overnight. Pt maintained on BIPAP 18/8 with 5 LO2, pt at times still apneic with pox as low at 70%, but comes right back up to 96%. HR in the 70's overnight in NSR. Pt denies any complaints. Will monitor.
[2023-04-27 05:01] LABS: Hematocrit 34.6 % (37.0-47.0); Hemoglobin 11.4 g/dL (12.0-16.0); Mean Corp Hgb Conc. 32.9 g/dL (33.0-37.0); Platelet Count 486 10^3/uL (130-400); Red Blood Cell Count 3.93 10^6/uL (4.20-5.40); Red Cell Dist. Width 14.2 % (11.5-14.5); White Blood Cell Count 12.3 10^3/uL (4.8-10.8)
[2023-04-27 05:26] LABS: Blood Urea Nitrogen 20 mg/dl (7-17); Calcium 9.3 mg/dl (8.4-10.2); Carbon Dioxide 30 mmol/L (22-30); Chloride 99 mmol/L (98-107); Estimated Creatinine Clearance > 125 ml/min; Glucose 114 mg/dl (70-99); Potassium 4.4 mmol/L (3.5-5.1); Sodium 135 mmol/L (135-145); eGFR > 60.00
[2023-04-27] MEDS: XOPENEX 1.25 MG INHALANT SOLUTION INH ×4 (07:45→19:30)
[2023-04-27] MEDS: TOPROL XL 25 MG PO (08:24)
[2023-04-27] MEDS: DELTASONE 20 MG PO (08:24)
[2023-04-27] MEDS: PROTONIX 40 MG PO (08:24)
[2023-04-27] MEDS: CLARITIN 10 MG PO (08:24)
[2023-04-27] MEDS: HYDROPHOR 1 APPLIC TOPICAL (09:01)
[2023-04-27] MEDS: DESENEX/MITRAZOL/ZEASORB 1 APPLIC TOPICAL ×2 (09:01→23:39)
--- NOTE | 2023-04-27 10:39 | PTCARENOTE ---
report received, assessments per work list. patient able to help with am care, patient dangled at bedside and stood, utilizing rolling walker. patient took four steps with encouragement. pulse oximeter post activity 80 on 5 liters midflow. oxygen
increased to 10 liters until patient recovered. call [facility] in reach
--- NOTE | 2023-04-27 11:08 | W.PN.HOSP.TC ---
Today's Communication/Plan
-
See bold
Assessment / Plan
Assessment / Plan
HPI: 38-year-old with history of obesity, lymphedema, multiple episodes of cellulitis, hypertension, palpitations presenting with shortness of breath.� 2 weeks ago she felt like she had cold described as productive cough and hoarse voice.� Since
that time she is also noted drainage from her legs bilaterally and was concerned that she may have had cellulitis.� She was started on Keflex which she has been on for the past 5 days.� Since then she has been having increased shortness of breath
associate with increasing cough.� She denies fevers or chills, vomiting or abdominal pain or diarrhea.� She has tightness in her chest and in her back for the past day that is constant and she thinks is from coughing. She denies any history of lung
problems including asthma or COPD.� She denies smoking, alcohol or any drugs.
She has been seeing a cement tester assistant due to occasional symptoms of palpitations and saw her cement tester assistant last week without any official diagnosis of arrhythmia.
#Sepsis (fever, tachycardia, tachypnea) secondary to community-acquired pneumonia with severe dyspnea
#Acute hypoxic respiratory failure/with component of obstructive sleep apnea and hypoventilation from super morbid obesity
#History of MRSA positive sputum culture
Chest x-ray shows mild bilateral pneumonia, COVID and influenza negative/repeat chest x-ray today continues to show bilateral inflammatory infiltrates
Respiratory failure multifactorial due to pneumonia and body habitus
Status post Precedex, currently on 5 L mid flow, wean as tolerated
Tolerating mid flow oxygen for now and Precedex now off
Status post course of vancomycin, Zosyn
Status post IV dexamethasone, now currently on prednisone taper
Plan for short-term rehab when stable
#Anxiety
IV Ativan as needed
#Food addiction
Mom reports that patient is unable to stop eating, suspect she has a psychiatric component to her overeating
Seen by psychiatry inpatient, recommend outpatient follow-up
#Bilateral lower extremity cellulitis superimposed on chronic lymphedema
Status post outpatient Keflex for 5 days
Covered with Vancomycin and Zosyn
#Essential hypertension, may need to hold metoprolol depending on blood pressure
#Hyperkalemia
Resolved
S/p Lokelma
Severe obesity due to excess calories
-Affects all aspects of care
Constipation>> diarrhea now from antibiotics
-Monitor
Palpitations
-Follows with cardiology outpatient, resumed metoprolol
Stage 2 buttocks pressure injury, POA
-Wound care, frequent turning
History of multiple episodes of cellulitis
DVT prophylaxis�SQ Lovenox
Full code
Physical Exam
General: Morbidly obese, no acute distress
HEENT: Normocephalic, Atraumatic, EOMI, MMM
Respiratory: Clear to Auscultation bilaterally
Cardiac: Normal S1/S2, Regular Rate and Rhythm
GI: Soft, Nontender, Nondistended, Normal Bowel Sounds
Extremities: No Clubbing, Cyanosis
Bilateral lower extremity lymphedema noted with erythema
Anticipated Discharge: 24 - 48 hours
Subjective/Interval History
-
Date of Service: April 27, 2023
Patient reports breathing better.
Objective Data
-
Labs:
Laboratory Results
04/27/23
04:49
WBC 12.3 H
Hgb 11.4 L
Hct 34.6 L
Plt Count 486 H
Sodium 135
Potassium 4.4
Chloride 99
Carbon Dioxide 30
BUN 20 H
Creatinine 0.5 L
Glucose 114 H
Calcium 9.3
Vital Signs:
Vital Signs
Temp Pulse Resp BP Pulse Ox
97.5 F 86 29 166/93 95
04/27/23 08:09 04/27/23 10:00 04/27/23 10:00 04/27/23 08:24 04/27/23 08:45
I&O
04/26/23 04/27/23 04/28/23
06:59 06:59 06:59
Intake Total 480 / 480 720 / 720 480 / 480
Output Total 500 / 500 1500 / 1500
Balance -20 / -20 -780 / -780 480 / 480
--- NOTE | 2023-04-27 15:22 | CM ---
CM following re: discharge planning.
Discussed in rounds, reviewed pt's chart, met with pt.
PT and OT continue recommending SNF level of care. pt agrees with going to [facility] for a short term rehab.
A referral to [facility] made last Thursday. Awaiting for determination.
D/C plan: [facility] for a short term rehab.
CM will follow with discharge plan updates as hospitalization progresses
--- NOTE | 2023-04-27 17:36 | W.PN.PUL3 ---
Today's Communication / Plan
-
Cont. with current plan.
Wean off FiO2 as able.
increase mobility
Bipap HS is pt allows.
Assessment
-
Assessment
38-year-old female with past medical history of chronic lower extremity edema, cellulitis, hypertension, suspected DAVID presenting with increasing shortness of breath for the past few days. She feels this may have been triggered by an upper
respiratory infection for the past 2 weeks with productive cough and hoarse voice. Chest x-ray demonstrating interstitial pattern. On arrival, she was notably in distress with increased work of breathing, placed on BiPAP. She is admitted to ICU
for respiratory distress.
Acute hypoxic respiratory failure, O2 sherry 87%, placed on BiPAP
Pneumonia
Fever
Leukocytosis
Recent outpatient treatment for cellulitis, Keflex x 5 days
Possible upper respiratory infection
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
Super morbid obesity, BMI 81
Suspected DAVID, never underwent HST
Hypertension
Palpitations
Plan
Clinically improving, wean FiO2 as able.
Planned to resume BPAP on night of 04-21 at 20/10 with O2 8L
-
for bronchitic symptoms- prednisone 40 mg qd 04-23, will taper by 10 mg q2d to off
Prior history of lung disease: Super morbid obesity, suspected underlying DAVID, untreated, needs PSG as outpatient
CXR/CT reviewed indicating possible infection, though pattern is more diffuse and interstitial
Repeat CXR showing diffuse patchy infiltrates worsening from prior
Prior CT was also reviewed indicating normal parenchyma
Completed ABx therapy.
Micro/Cultures reviewed:
Bloodx1 so far negative 04/15/23
Sputum neg 04/16/23, neg strep/leg Ag, flu neg, recheck sputum c yeast 04-19
Urine neg 04/15/23
MRSA positive 04-16 and in Dec 2022 (negative in Feb 2023)
CXR 04-22 and : mild progressive improvement in bilateral pulm infiltrates
-
Will need radiogrephic follow up in the outpx setting.
-
No prior h/o diabetes or thyroid disease
Monitor accuchecks PRN/SS coverage if needed
OOB to chair as tolerated
Pulmonary will follow.
---------
Diagnostic Data
CXR 04-22-23: bilateral pulm infiltrates with mild improvement
CXR 04-18-23 c/w below, underpenetrated poor quality film but seemingly worse bilat infiltrates
Chest X-Ray: 04/15/23- New findings concerning for mild bilateral pneumonia. Findings related to limited inspiration cannot be completely excluded. Clinical and laboratory correlation recommended.
CHEST 03/31/23- Limited study demonstrating no active cardiopulmonary disease. There is no large central pulmonary embolus. Evaluation for peripheral pulmonary embolism is limited by the patient's large size
TTE 02-27-23: very technically difficult, contrasted, LVEF 55-60%
Subjective Data
-
Date of Service:
Date of Service: April 27, 2023
Chief Complaint: Pulmonary Follow Up (Pneumonia/hypoxemic resp. failure)
Review of Systems
General: Fever (n)
Cardiopulmonary: Dyspnea (none at rest), Cough, Sputum Production (n) and Wheezing
GI: Abdominal Pain (n), Nausea (n) and Vomiting (n)
Objective Data
Data Reviewed
Vital Signs / I&O / Oxygen:
Vital Signs
Temp Pulse Resp BP Pulse Ox
98 F 95 28 145/84 95
04/27/23 15:18 04/27/23 15:50 04/27/23 15:50 04/27/23 15:50 04/27/23 15:56
Intake and Output
04/26/23 04/27/23 04/28/23
06:59 06:59 06:59
Intake Total 480 / 480 720 / 720 1200 / 1200
Output Total 500 / 500 1500 / 1500 900 / 900
Balance -20 / -20 -780 / -780 300 / 300
SaO2 [NIV (Non Invasive 94
Ventilation)]
SaO2 95
Nasal Cannula flow liters per 15
minute
Physical Exam
General: Respiratory Distress (improving)
HEENT: Normocephalic and Moist Mucous Membranes
Cardiovascular: Regular Rhythm, Murmur (n), Peripheral Edema (chronic GEOVANNI) and Calf Tenderness (n)
Respiratory: Crackles, Rhonchi, Accessory Resp Muscle Use (mild) and Stridor (n)
GI: Soft, Non Distended and Non Tender
Neurology: Awake, AO x 3 and No Motor Deficits
Skin: Dry
Labs/Micro/Reports
Lab Data
04/27/23 04:49
04/27/23 04:49
Microbiology
04/26/23 21:54 Feces/Stool C. difficile [facility] Antigen & Toxins - Final
Negative for toxigenic C.difficile
[2023-04-27] MEDS: LOVENOX 60 MG SC (17:39)
[2023-04-27] MEDS: TYLENOL 650 MG PO (21:44)
[2023-04-27] MEDS: MELATONIN 10 MG PO (23:39)
[2023-04-28 03:05] VITALS: PULSE 5; PULSE 88
[2023-04-28 05:07] VITALS: BP 158/87
[2023-04-28] MEDS: XOPENEX 1.25 MG INHALANT SOLUTION INH ×4 (07:21→20:06)
[2023-04-28 07:52] VITALS: BP 160/71
[2023-04-28] MEDS: CLARITIN 10 MG PO (07:56)
[2023-04-28] MEDS: PROTONIX 40 MG PO (07:56)
[2023-04-28] MEDS: DELTASONE 20 MG PO (07:56)
[2023-04-28] MEDS: TOPROL XL 25 MG PO (07:56)
--- NOTE | 2023-04-28 09:04 | W.PN.HOSP.TC ---
Today's Communication/Plan
-
Discharge planning
Assessment / Plan
Assessment / Plan
HPI: 38-year-old with history of obesity, lymphedema, multiple episodes of cellulitis, hypertension, palpitations presenting with shortness of breath.� 2 weeks ago she felt like she had cold described as productive cough and hoarse voice.� Since
that time she is also noted drainage from her legs bilaterally and was concerned that she may have had cellulitis.� She was started on Keflex which she has been on for the past 5 days.� Since then she has been having increased shortness of breath
associate with increasing cough.� She denies fevers or chills, vomiting or abdominal pain or diarrhea.� She has tightness in her chest and in her back for the past day that is constant and she thinks is from coughing. She denies any history of lung
problems including asthma or COPD.� She denies smoking, alcohol or any drugs.
She has been seeing a quality assurance due to occasional symptoms of palpitations and saw her quality assurance last week without any official diagnosis of arrhythmia.
#Sepsis (fever, tachycardia, tachypnea) secondary to community-acquired pneumonia with severe dyspnea
#Acute hypoxic respiratory failure/with component of obstructive sleep apnea and hypoventilation from super morbid obesity
#History of MRSA positive sputum culture
Chest x-ray shows mild bilateral pneumonia, COVID and influenza negative/repeat chest x-ray continues to show bilateral inflammatory infiltrates
Respiratory failure multifactorial due to pneumonia and body habitus
Status post Precedex, currently on 5 L mid flow, wean as tolerated
Status post course of vancomycin, Zosyn
Status post IV dexamethasone, now currently on prednisone taper
She is too heavy for skilled rehab, consult physiatry for acute rehab
#Anxiety
IV Ativan as needed
#Food addiction
Mom reports that patient is unable to stop eating, suspect she has a psychiatric component to her overeating
Seen by psychiatry inpatient, recommend outpatient follow-up
#Severe obesity due to excess calories
-BMI 73, affects all aspects of care
#Bilateral lower extremity cellulitis superimposed on chronic lymphedema
Status post outpatient Keflex for 5 days
Status post vancomycin and Zosyn
#Hyperkalemia
Resolved
S/p Lokelma
#Palpitations
-Follows with cardiology outpatient, resumed metoprolol
#Stage 2 buttocks pressure injury, POA
-Wound care, frequent turning
#History of multiple episodes of cellulitis
DVT prophylaxis�SQ Lovenox
Full code
Physical Exam
General: Morbidly obese, no acute distress
HEENT: Normocephalic, Atraumatic, EOMI, MMM
Respiratory: Clear to Auscultation bilaterally
Cardiac: Normal S1/S2, Regular Rate and Rhythm
GI: Soft, Nontender, Nondistended, Normal Bowel Sounds
Extremities: No Clubbing, Cyanosis
Bilateral lower extremity lymphedema noted with erythema
Anticipated Discharge: Within 24 hours
Subjective/Interval History
-
Date of Service: April 28, 2023
Reports breathing better. Was able to walk.
Objective Data
-
Vital Signs:
Vital Signs
Temp Pulse Resp BP Pulse Ox
98.0 F 93 32 160/71 95
04/28/23 07:57 04/28/23 08:00 04/28/23 08:00 04/28/23 07:56 04/28/23 07:52
I&O
04/27/23 04/28/23 04/29/23
06:59 06:59 06:59
Intake Total 720 / 720 1680 / 1680 240 / 240
Output Total 1500 / 1500 1800 / 1800 1000 / 1000
Balance -780 / -780 -120 / -120 -760 / -760
[2023-04-28] MEDS: DESENEX/MITRAZOL/ZEASORB 1 APPLIC TOPICAL ×2 (09:33→19:41)
[2023-04-28] MEDS: HYDROPHOR 1 APPLIC TOPICAL (09:33)
[2023-04-28 09:56] VITALS: BMI 73.6
--- NOTE | 2023-04-28 10:54 | PTCARENOTE ---
report received, assessment per work list. patient am care, wound care provided. monitor nsr, lungs with exertional expiratory wheeze with exertion. dyspneic with exertion. remains on midflow 5 liters. call [facility] in reach
[2023-04-28 11:49] VITALS: BP 146/82
--- NOTE | 2023-04-28 12:19 | W.PN.PUL3 ---
Today's Communication / Plan
-
Continue prednisone taper for additional 3 days
Eventual outpatient radiographic follow-up
Wean off oxygen
May continue nocturnal BiPAP while in the hospital or at rehab. Will need sleep follow-up.
Sign off
Assessment
-
Assessment
38-year-old female with past medical history of chronic lower extremity edema, cellulitis, hypertension, suspected DAVID presenting with increasing shortness of breath for the past few days. She feels this may have been triggered by an upper
respiratory infection for the past 2 weeks with productive cough and hoarse voice. Chest x-ray demonstrating interstitial pattern. On arrival, she was notably in distress with increased work of breathing, placed on BiPAP. She is admitted to ICU
for respiratory distress.
Acute hypoxic respiratory failure, O2 sherry 87%, placed on BiPAP
Pneumonia
Fever
Leukocytosis
Recent outpatient treatment for cellulitis, Keflex x 5 days
Possible upper respiratory infection
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
Super morbid obesity, BMI 81
Suspected DAVID, never underwent HST
Hypertension
Palpitations
Plan
Clinically improving, wean FiO2 as able.
Currently on 4 L.
Prior history of lung disease: Super morbid obesity, suspected underlying DAVID, untreated, needs PSG as outpatient
Planned to resume BPAP on night of - at 20/10 (May continue while in the hospital-will need outpatient sleep follow-up)
Can be continued in rehab if allowed.
-
for bronchitic symptoms-
Prednisone taper for additional 2 days.
Continue Xopenex for secretion clearance. May transition to as needed upon discharge.
-
CXR/CT reviewed indicating possible infection, though pattern is more diffuse and interstitial
Repeat CXR showing diffuse patchy infiltrates worsening from prior
Prior CT was also reviewed indicating normal parenchyma
Completed ABx therapy.
Micro/Cultures reviewed:
Bloodx1 so far negative 04/15/23
Sputum neg 04/16/23, neg strep/leg Ag, flu neg, recheck sputum c yeast 04-19
Urine neg 04/15/23
MRSA positive 04-16 and in Dec 2022 (negative in Feb 2023)
CXR 04-22 and : mild progressive improvement in bilateral pulm infiltrates
Clinically improved. Outpatient radiographic follow-up in the next 4 to 6 weeks.
-
OOB to chair as tolerated
No additional recommendation from the pulmonary perspective. At this point I will sign off.
I agree with discharge planning
Wean down oxygen as able. May need oxygen upon discharge temporarily.
Outpatient pulmonary follow-up recommended.
---------
Diagnostic Data
CXR 04-22-23: bilateral pulm infiltrates with mild improvement
CXR 04-18-23 c/w below, underpenetrated poor quality film but seemingly worse bilat infiltrates
Chest X-Ray: 04/15/23- New findings concerning for mild bilateral pneumonia. Findings related to limited inspiration cannot be completely excluded. Clinical and laboratory correlation recommended.
CHEST 03/31/23- Limited study demonstrating no active cardiopulmonary disease. There is no large central pulmonary embolus. Evaluation for peripheral pulmonary embolism is limited by the patient's large size
TTE 02-27-23: very technically difficult, contrasted, LVEF 55-60%
Subjective Data
-
Date of Service:
Date of Service: April 28, 2023
Chief Complaint: Pulmonary Follow Up (Pneumonia/hypoxemic resp. failure)
Subjective:
Patient offers no complaints
In bed eating her breakfast independently.
Denies any phlegm production
Remains on supplemental oxygen.
Review of Systems
General: Fever (n)
Cardiopulmonary: Dyspnea (none at rest)
GI: Abdominal Pain (n)
Neuro: Headache (n)
Objective Data
Data Reviewed
Vital Signs / I&O / Oxygen:
Vital Signs
Temp Pulse Resp BP Pulse Ox
98.1 F 94 24 160/71 96
04/28/23 12:05 04/28/23 11:50 04/28/23 11:50 04/28/23 07:56 04/28/23 11:50
Intake and Output
04/27/23 04/28/23 04/29/23
06:59 06:59 06:59
Intake Total 720 / 720 1680 / 1680 240 / 240
Output Total 1500 / 1500 1800 / 1800 1000 / 1000
Balance -780 / -780 -120 / -120 -760 / -760
SaO2 [NIV (Non Invasive 94
Ventilation)]
SaO2 96
Nasal Cannula flow liters per 6
minute
Physical Exam
General: Respiratory Distress (improving)
HEENT: Normocephalic and Moist Mucous Membranes
Cardiovascular: Regular Rhythm, Murmur (n), Peripheral Edema (chronic GEOVANNI) and Calf Tenderness (n)
Respiratory: Crackles, Rhonchi, Accessory Resp Muscle Use (mild) and Stridor (n)
GI: Soft, Non Distended and Non Tender
Neurology: Awake, AO x 3 and No Motor Deficits
Skin: Dry
Labs/Micro/Reports
Lab Data
04/27/23 04:49
04/27/23 04:49
Microbiology
04/26/23 21:54 Feces/Stool C. difficile GDH Antigen & Toxins - Final
Negative for toxigenic C.difficile
--- NOTE | 2023-04-28 13:51 | CON.MD ---
Documented by User: Shiloh Agrawal PA-C 04/28/23 17:36
Consultation - Medical
-
Referring Provider: Dexter Salas
Chief Complaint: Debility
History of Present Illness: 38-year-old morbidly obese female with PMH of (chronic lower extremity edema, cellulitis, hypertension, suspected DAVID presenting with increasing shortness of breath for the past few days.� She feels this may have been
triggered by an upper respiratory infection for the past 2 weeks with productive cough and hoarse voice.� Chest x-ray demonstrating interstitial pattern. � On arrival, she was notably in distress with increased work of breathing, placed on BiPAP.�
Adm as ICU for respiratory distress, downgraded to IMU. Recent outpatient treatment for cellulitis, Keflex x 5 days. She has tightness in her chest and in her back for the past day that is constant and she thinks is from coughing. She has been
seeing a water resources project manager due to occasional symptoms of palpitations and saw her water resources project manager last week without any official diagnosis of arrhythmia.
Placed on BiPAP on adm - due to work of breathing, stat ABG sent, trace CO2^, normal pH and O2 (BPAP 8/5, 10L) Prior history of lung disease:� Super morbid obesity, suspected underlying DAVID, untreated (pending HST)
Used BPAP until 3:50 am 04-16, she requested to d/c as felt could not tolerate any longer (of note was on 12/10 cwp with 15L when BPAP removed) Supplemental O2 as indicated to maintain sats > 89%
CXR bilateral patchy infiltrates�
Patient on oxygen 4L at rest with requirement for increase oxygen with movements. Has been able to walk from her bed to a chair in the room and to the bathroom as needed.
Chest xray- 04/25/23 Stable bilateral airspace disease concerning for pneumonia. Moderate. Mild cardiomegaly.. Stable
EKG- 04/15/23
Vent. Rate : 124 BPM � � Atrial Rate : 124 BPM
POOR DATA QUALITY, INTERPRETATION MAY BE ADVERSELY AFFECTED
SINUS TACHYCARDIA
OTHERWISE NORMAL ECG
WHEN COMPARED WITH ECG OF 31-MAR-2023 17:38,
NO SIGNIFICANT CHANGE WAS FOUND
Past Medical History:Morbid obesity, chronic lower extremity edema, cellulitis, hypertension, suspected DAVID
Procedure History: Bariatric patient
Family History:
Social History:
Functional Level Premorbidly: Independent with all activities
Functional Level Currently: Toileting�dependent, grooming�set up, eating�independent, Lower extremity self-care�dependent, bed mobility-supervision, transfer�min assist of 2, verbal cues needed for technique and sequence, Patient able to push up
from bed and mostly come to upright posture but not fully.
Tobacco: Denies
Alcohol: Denies
Drug use: Denies
Lives with: Family
24-hour assistance available:
Number of floors: Two-story home with basement
# steps to enter: 2 +3 steps. 1 rail on first set of steps, b/l rails on second set of steps
# steps to second floor: Bedroom on second floor
Potential First floor set up: Bathroom
Driving: yes
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
�
Allergies:
Allergy/AdvReac Type Severity Reaction Status Date / Time
adhesive Allergy Rash Verified 04/15/23 12:38
Review of Systems:
Constitutional: (x) Normal _
Eye: (x) Normal _
Ear/Nose/Throat: (x) Normal _
Respiratory: (x) shortness of breath on oxygen,
Cardiovascular: (x) Normal _
Gastrointestinal: (x) Normal _
Genitourinary: (x) Normal _
Musculoskeletal: (x) back pain, morbid obesity
Integumentary: (x) cellulitis, LE, lymphedema_
Neurologic: (x) Normal _
Psychiatric: (x) Normal _
Endocrine: (x) Morbid obesity -
Hematologic/Lymphatic: (x) Normal _
Allergic/Immunologic: (x) Normal _
Medications:
Active Current Visit Medication List
Category Date Time Status
0.9% Sodium Chloride [Nss (Preservative Free)] Med 04/17/23 02:44 Active
0.25 ml IV Q4HPRN PRN
Acetaminophen [Tylenol] Med 04/16/23 16:52 Active
650 mg PO Q6HPRN PRN
Enoxaparin Sodium [Lovenox] Med 04/16/23 18:00 Active
60 mg SC QPM
Flush (0.9% Sodium Chloride) [Flush (Nss)] Med 04/15/23 16:00 Active
See Dose Instructions IV PER PROTOCOL
HydrALAZINE [Apresoline] Med 04/22/23 15:16 Active
5 mg IV Q6HPRN PRN
Levalbuterol [Xopenex 1.25 mg Inhalant Solution] Med 04/17/23 02:44 Active
1.25 mg INH R Q6HPRN PRN
Levalbuterol [Xopenex 1.25 mg Inhalant Solution] Med 04/15/23 20:17 Active
1.25 mg INH R QID
Loratadine [Claritin] Med 04/23/23 12:00 Active
10 mg PO DAILY
Lorazepam [Ativan] Med 04/17/23 02:41 Active
0.5 mg IV Q4HPRN PRN
Melatonin Med 04/22/23 22:00 Active
10 mg PO HS
Metoprolol Xl [Toprol Xl] Med 04/16/23 08:00 Active
25 mg PO DAILY
Miconazole Nitrate [Desenex/Mitrazol/Zeasorb] Med 04/16/23 20:00 Active
See Dose Instructions TOPICAL BID
Ondansetron Injectable [Zofran] Med 04/19/23 02:34 Active
4 mg IV Q6HPRN PRN
Pantoprazole [Protonix] Med 04/22/23 13:00 Active
40 mg PO DAILY
Petrolatum/Mineral Oil [Hydrophor] Med 04/17/23 08:00 Active
See Dose Instructions TOPICAL DAILY
Prednisone [Deltasone] Med 04/29/23 08:00 Active
10 mg PO DAILY
Sodium Chloride/Aloe Vera [[place] Saline Nasal Gel] Med 04/17/23 02:09 Active
See Dose Instructions NASAL Q2HPRN PRN
Vitals:
Temp Pulse Resp BP Pulse Ox
98.1 F 91 26 146/82 96
04/28/23 12:05 04/28/23 14:00 04/28/23 14:00 04/28/23 11:49 04/28/23 11:50
Height 5 ft 9 in
Actual Weight 225.889 kg
Body Mass Index (BMI) 73.6
Physical Exam:
General Appearance/Observation: Morbidly obese female in no apparent distress resting in bed on 4L O2 via cannula.
Pain/Comfort Assessment: Back
Mood/Affect: Appropriate, pleasant
Integumentary/Operative Site:
�� Pressure Ulcer Evaluation: absent over heels.
��
�� Other Type of Wound: Bilateral legs wrapped in stanford. lymphedema and cellulitis
Eyes: Conjunctiva/Lids: normal ��� Pupils: pupils equal round
Ears/Nose/Throat: oral mucosa moist,� throat clear.������������ Lips/Teeth/Gums: normal
Neck: No muscle spasm
Cardiovascular: Heart: regular, no murmur
Musculoskeletal: Moderate tenderness with palpation- Lumbar paraspinals, Quadratum lumborum tender with deep palpation
Pulses: dorsalis pedis 1+ bilaterally
Respiratory: Respiratory Effort/Chest Expansion: normal ������ Auscultation:grossly Clear to auscultation bilaterally
Gastrointestinal: abdomen mildly tender, distended due to body habitus, overactive abdominal bowel sounds
Genitourinary: No Sanchez
Extremities: Edema: legs Cyanosis: None Trophic changes: bilateral legs wrapped in stanford
Neurology Exam:
Orientation: Alert, Oriented to self, Time, Place
Memory: Intact for most recent medical concerns
Higher cortical function
Repetition: Intact
Comprehension: Intact
Two step command: Intact
Naming: Intact
Cranial Nerves:
�� CNII: Pupillary light reflex: Intact���
�� CN III, IV, : Extraocular muscles: Intact
�� CN VII: Facial movement: Symmetric
�� CN VIII: Hearing: Normal
�� CN IX/X: Speech & swallow: Normal, Position of Uvula: Midline
�� CN XI: Shoulder shrug: Symmetric
�� CN XII: Tongue protrusion: Midline
Sensory:
�� Light touch: Intact in bilateral upper and lower extremities
�
Reflexes:
�� Biceps: 1+ bilaterally
�� Brachioradialis: 1+ bilaterally
�� Triceps: trace+ bilaterally
�� Patellar: 1+ bilaterally
�� Achilles: 1+ bilaterally
�� Clonus: None
�� Chirag: Negative bilaterally
Musculoskeletal:
Motor: (Manual muscle scale 0-5)
Muscle SA EF WE EE FF FA HF KE DF EHL PF
Right� 5 5 5 5 2 2 5 5 5
Left 5 5 5 5 2 2 5 5 5
Tone: Normal in all extremities
Range of Motion: Passively within normal limits in all extremities, limited for lower ext.
Lab Results
Labs
WBC 12.3 10^3/uL (4.8-10.8) H 04/27/23 04:49
RBC 3.93 10^6/uL (4.20-5.40) L 04/27/23 04:49
Hgb 11.4 g/dL (12.0-16.0) L 04/27/23 04:49
Hct 34.6 % (37.0-47.0) L 04/27/23 04:49
MCV 88.0 fL (81.0-99.0) 04/27/23 04:49
MCH 29.0 pg (27.0-31.0) 04/27/23 04:49
MCHC 32.9 g/dL (33.0-37.0) L 04/27/23 04:49
RDW 14.2 % (11.5-14.5) 04/27/23 04:49
Plt Count 486 10^3/uL (130-400) H 04/27/23 04:49
MPV 9.0 fL (7.4-10.4) 04/27/23 04:49
Abs Immat Gran (auto) 0.1 10^3/uL (0-0.05) H 04/16/23 04:07
Absolute Neuts (auto) 14.3 10^3/uL (1.4-6.5) H 04/16/23 04:07
Absolute Lymphs (auto) 0.8 10^3/uL (1.2-3.4) L 04/16/23 04:07
Absolute Monos (auto) 0.4 10^3/uL (0.1-0.6) 04/16/23 04:07
Absolute Eos (auto) 0.0 10^3/uL (0-0.7) 04/16/23 04:07
Absolute Basos (auto) 0.0 10^3/uL (0-0.2) 04/16/23 04:07
Immature Gran % 0.6 % (0-0.5) H 04/16/23 04:07
Neutrophils % 91.2 % (42.2-75.2) H 04/16/23 04:07
Lymphocytes % 5.3 % (20.5-51.1) L 04/16/23 04:07
Monocytes % 2.7 % (1.7-9.3) 04/16/23 04:07
Eosinophils % 0.0 % (0-6) 04/16/23 04:07
Basophils % 0.2 % (0-2) 04/16/23 04:07
Nucleated RBC % 0 % 04/16/23 04:07
PT 15.5 Sec (11.4-14.6) H 04/18/23 08:15
INR 1.20 04/18/23 08:15
APTT 24.9 Sec (23.4-35.0) 04/18/23 08:15
pH Cancelled 04/18/23 19:28
pCO2 Cancelled 04/18/23 19:
pO2 Cancelled 04/18/23 19:
HCO3 Cancelled 04/18/23 19:
Base Excess Cancelled 04/18/23 19:28
ABG O2 Sat (Measured) Cancelled 04/18/23 19:28
Sodium Cancelled 04/18/23 19:28
Potassium Cancelled 04/18/23 19:
O2 Delivery Level Cancelled 04/18/23 19:
Sodium 135 mmol/L (135-145) 04/27/23 04:49
Potassium 4.4 mmol/L (3.5-5.1) 04/27/23 04:49
Chloride 99 mmol/L (98-107) 04/27/23 04:49
Carbon Dioxide 30 mmol/L (22-30) 04/27/23 04:49
BUN 20 mg/dl (7-17) H 04/27/23 04:49
Creatinine 0.5 mg/dL (0.6-1.0) L 04/27/23 04:49
Estimated Creat Clear > 125 ml/min 04/27/23 04:49
eGFR > 60.00 04/27/23 04:49
Glucose 114 mg/dl (70-99) H 04/27/23 04:49
Lactic Acid Cancelled 04/15/23 17:00
Calcium 9.3 mg/dl (8.4-10.2) 04/27/23 04:49
Ionized Calcium Cancelled 04/18/23 19:28
Phosphorus 4.4 mg/dl (2.5-4.5) 04/22/23 06:07
Magnesium 2.2 mg/dl (1.6-2.3) 04/22/23 06:07
Total Bilirubin 0.6 mg/dl (0.2-1.3) 04/26/23 04:48
AST 56 U/L (14-36) H 04/26/23 04:48
ALT 98 U/L (0-35) H 04/26/23 04:48
Alkaline Phosphatase 65 U/L (38-126) 04/26/23 04:48
Troponin I < 0.012 ng/ml 04/15/23 13:43
Gti-U-Hqftesmdzqd Pept 302 pg/ml 04/18/23 12:03
Total Protein 6.9 g/dl (6.3-8.2) 04/26/23 04:48
Albumin 3.3 g/dl (3.5-5.0) L 04/26/23 04:48
Procalcitonin < 0.05 ng/ml (0.0-0.25) 04/25/23 08:35
Urine Color Hanh 04/15/23 22:08
Urine Clarity Slightly cloudy (Clear) 04/15/23 22:08
Urine pH 6.5 (5.0-9.0) 04/15/23 22:08
Ur Specific [place] 1.020 (<1.030) 04/15/23 22:08
Urine Ketones 1+ (Negative) A 04/15/23 22:08
Ur Occult Blood Reflex 4+ (Negative) A 04/15/23 22:08
Urine Nitrite (Reflex) Positive (Negative) A 04/15/23 22:08
Urine Bilirubin 1+ (Negative) A 04/15/23 22:08
Urine Urobilinogen Negative (Neg - 1+) 04/15/23 22:08
Leukocyte Esterase Rfl Trace (Negative) A 04/15/23 22:08
Urine RBC 30-40 /HPF (0-2) A 04/15/23 22:08
Urine WBC (Reflex) 30-40 /HPF (0-5) A 04/15/23 22:08
Ur Squamous Epith Cells 11-15 /LPF (Few) 04/15/23 22:08
Amorphous Crystals Seen 04/15/23 22:08
Urine Bacteria (Reflex) Moderate (Negative) A 04/15/23 22:08
Urine Glucose Negative (Negative) 04/15/23 22:08
Urine Albumin (Reflex) 3+ (Neg - Trace) A 04/15/23 22:08
Vancomycin Peak Cancelled 04/20/23 01:00
Vancomycin Trough 10.5 ug/ml (5-20) 04/20/23 05:26
SARS-CoV-2 Antigen Negative (Negative) 04/15/23 12:40
POC Glucose 119 mg/dl (70-99) H 04/19/23 06:06
�
Diagnostic Results: as per HPI
Assessment 38-year-old morbidly obese female with PMH of (chronic lower extremity edema, cellulitis, hypertension, suspected DAVID presenting with increasing shortness of breath for the past few days. Treated for pneumonia and sepsis. On taper
prednisone and oxygen with debility.
Plan
PT/OT to increase independence with ADLs, improve balance, coordination, endurance, strength, mobility, community reintegration, decreased burden of care on others and family education.
Debility: Resolving Pneumonia with deconditioning. recommending PT/OT
Quadratus lumborum myofascial pain syndrome: Has significant reproducible myofascial pain over the quadratus lumborum region. Likely an overuse phenomenon. Suggest heat on a routine basis, massage, cyclobenzaprine every 8 hours starting at 5 mg with
first dose at night and progressing up to 10 mg every 8 hours as needed. Physical therapy evaluation for quadratus lumborum stretching with use of modalities such as ice, heat, or massage. Reviewed need for consistent interventions to help expedite
the recovery process. Lidocaine patch or Meño-dean like cream to to be placed over lumbar region. Stretches to help with mobility demonstrated.
- Stop opioids as they are not helping and can cause further sedation.
- Proper bed positioning discussed with patient, currently slumped down in bed with no lower back support.�
HTN: continue metoprolol, hydralazine, monitor closely
HLD: Statin
DAVID:Per pulmonary-May continue nocturnal BiPAP while in the hospital or at rehab.� Will need sleep follow-up. .
Pneumonia: Completed antibiotics.�Cont prednisone taper for additional 3 days- per pulmonary. Eventual outpatient radiographic follow-up. Wean off oxygen. Guaifenesin for thick secretions.�Xopenex as needed
Bilateral lower extremity edema: Consider TEDS as able. Stanford.Increased fluid will cause more force requirement to move lower extremities which requires more strength and increases fatigue.
Anemia: Likely multifactorial.� Continue to monitor. 11.4
Thrombocytosis: Continue to monitor.
Psych: Psychology consult.� Monitor mood, adjust medications as needed.
Skin: monitor for pressure sores/rashes/lesions.
Pain: acetaminophen, Lidoderrm patch, Heat, Ice live as needed. Tramadol prn
Bowel: Colace and Senna, PRN bisacodyl.
Bladder: Time void, PVRs, PRN straight cath as needed.
GI Prophylaxis: Pantoprazole
DVT Prophylaxis: Lovenox 60 mg SC
Pulmonary: Incentive spirometry, Xopenex
Morbid obesity: Continue to grief counsellor patient about diet adjustments to control obesity. Body habitus and increased force to move body and extremities causes further difficulty with functional tasks.
Safety: Continue to reinforce assistance with all transfers.
Code Status:� Full code
Dispo (date/plan/equipment needs): Home with family care.� Social history reviewed.
Functional and Medical Goals: Modified Independent with ADL�s, ambulation, transfers
Discharge Destination: Acute inpatient Rehab
Summary of recommendations:
Discharge Destination: Acute inpatient Rehab.
Debility: Resolving Pneumonia with deconditioning. Would benefit from an acute inpatient rehabilitation at a facility that can accommodate bariatric measures and accessibility.
Quadratus lumborum myofascial pain syndrome: Has significant reproducible myofascial pain over the quadratus lumborum region. Likely an overuse phenomenon. Suggest heat on a routine basis, massage, cyclobenzaprine every 8 hours starting at 5 mg with
first dose at night and progressing up to 10 mg every 8 hours as needed. Physical therapy evaluation for quadratus lumborum stretching with use of modalities such as ice, heat, or massage. Reviewed need for consistent interventions to help expedite
the recovery process. Lidocaine patch or Meño-dean like cream to be placed over lumbar region.
- Avoid opioids as they are not helping and can cause further sedation.
DVT Prophylaxis: Lovenox 60 mg SC
Bilateral lower extremity edema: Consider TEDS as able. Stanford.Increased fluid will cause more force requirement to move lower extremities which requires more strength and increases fatigue.
Pneumonia: Completed antibiotics.�Cont prednisone taper for additional 3 days- per pulmonary. Eventual outpatient radiographic follow-up. Wean off oxygen. Guaifenesin for thick secretions.�Xopenex as needed
DAVID:Per pulmonary-May continue nocturnal BiPAP while in the hospital or at rehab.� Will need sleep follow-up. .
Thank you for allowing me to care for your patient. Please contact me with any questions or concerns.

Documented by User: Bartolo Salter MD 04/29/23 13:38
Consultation - Medical
-
Referring Provider: Dr. Dexter Epperson
Chief Complaint: Debility
History of Present Illness: 38-year-old morbidly obese female with PMH of (chronic lower extremity edema, cellulitis, hypertension, suspected DVAID) presenting with increasing shortness of breath for the past few days.� She feels this may have been
triggered by an upper respiratory infection for the past 2 weeks with productive cough and hoarse voice.� Chest x-ray demonstrating interstitial pattern. � On arrival, she was notably in distress with increased work of breathing, placed on BiPAP.�
Adm as ICU for respiratory distress, downgraded to IMU. Recent outpatient treatment for cellulitis, Keflex x 5 days. She has tightness in her chest and in her back for the past day that is constant and she thinks is from coughing. She has been
seeing a water resources project manager due to occasional symptoms of palpitations and saw her water resources project manager last week without any official diagnosis of arrhythmia.
Placed on BiPAP on adm 04-15 due to work of breathing, stat ABG sent, trace CO2^, normal pH and O2 (BPAP 8/5, 10L) Prior history of lung disease:� Super morbid obesity, suspected underlying DAVID, untreated (pending HST)
Used BPAP until 3:50 am 04-16, she requested to d/c as felt could not tolerate any longer (of note was on 03/22 cwp with 15L when BPAP removed) Supplemental O2 as indicated to maintain sats > 89%
CXR bilateral patchy infiltrates�
Patient on oxygen 4L at rest with requirement for increase oxygen with movements. Has been able to walk from her bed to a chair in the room and to the bathroom as needed. Does not use oxygen at home. Was planning on doing an at home sleep apnea
test but was not feeling well and deferred it. Has the kit at home to do it.
Chest xray- 04/25/23 Stable bilateral airspace disease concerning for pneumonia. Moderate. Mild cardiomegaly. Stable
EKG- 04/15/23
Vent. Rate : 124 BPM � � Atrial Rate : 124 BPM
POOR DATA QUALITY, INTERPRETATION MAY BE ADVERSELY AFFECTED
SINUS TACHYCARDIA
OTHERWISE NORMAL ECG
WHEN COMPARED WITH ECG OF 31-MAR-2023 17:38,
NO SIGNIFICANT CHANGE WAS FOUND
Past Medical History:Morbid obesity, chronic lower extremity edema, cellulitis, hypertension, suspected DAVID
Procedure History: Bariatric patient
Family History: None pertinent
Social History:
Functional Level Premorbidly: Independent with all activities
Functional Level Currently: Toileting�dependent, grooming�set up, eating�independent, Lower extremity self-care�dependent, bed mobility-supervision, transfer�min assist of 2, verbal cues needed for technique and sequence, Patient able to push up
from bed and mostly come to upright posture but not fully.
Tobacco: Denies
Alcohol: Denies
Drug use: Denies
Lives with: Family
24-hour assistance available:
Number of floors: Two-story home with basement
# steps to enter: 2 +3 steps. 1 rail on first set of steps, b/l rails on second set of steps
# steps to second floor: Bedroom on second floor
Potential First floor set up: Bathroom
Driving: yes
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
�
Allergies:
Allergy/AdvReac Type Severity Reaction Status Date / Time
adhesive Allergy Rash Verified 04/15/23 12:38
Review of Systems:
Constitutional: (x) abNormal _fatigue
Eye: (x) Normal _
Ear/Nose/Throat: (x) Normal _
Respiratory: (x) shortness of breath on oxygen,
Cardiovascular: (x) Normal _
Gastrointestinal: (x) Normal _
Genitourinary: (x) Normal _
Musculoskeletal: (x) back pain, morbid obesity
Integumentary: (x) cellulitis, LE, lymphedema_
Neurologic: (x) Normal _
Psychiatric: (x) Normal _
Endocrine: (x) Morbid obesity -
Hematologic/Lymphatic: (x) Normal _
Allergic/Immunologic: (x) Normal _
Medications:
Active Current Visit Medication List
Category Date Time Status
0.9% Sodium Chloride [Nss (Preservative Free)] Med 04/17/23 02:44 Active
0.25 ml IV Q4HPRN PRN
Acetaminophen [Tylenol] Med 04/16/23 16:52 Active
650 mg PO Q6HPRN PRN
Enoxaparin Sodium [Lovenox] Med 04/16/23 18:00 Active
60 mg SC QPM
Flush (0.9% Sodium Chloride) [Flush (Nss)] Med 04/15/23 16:00 Active
See Dose Instructions IV PER PROTOCOL
HydrALAZINE [Apresoline] Med 04/22/23 15:16 Active
5 mg IV Q6HPRN PRN
Levalbuterol [Xopenex 1.25 mg Inhalant Solution] Med 04/17/23 02:44 Active
1.25 mg INH R Q6HPRN PRN
Levalbuterol [Xopenex 1.25 mg Inhalant Solution] Med 04/15/23 20:17 Active
1.25 mg INH R QID
Loratadine [Claritin] Med 04/23/23 12:00 Active
10 mg PO DAILY
Lorazepam [Ativan] Med 04/17/23 02:41 Active
0.5 mg IV Q4HPRN PRN
Melatonin Med 04/22/23 22:00 Active
10 mg PO HS
Metoprolol Xl [Toprol Xl] Med 04/16/23 08:00 Active
25 mg PO DAILY
Miconazole Nitrate [Desenex/Mitrazol/Zeasorb] Med 04/16/23 20:00 Active
See Dose Instructions TOPICAL BID
Ondansetron Injectable [Zofran] Med 04/19/23 02:34 Active
4 mg IV Q6HPRN PRN
Pantoprazole [Protonix] Med 04/22/23 13:00 Active
40 mg PO DAILY
Petrolatum/Mineral Oil [Hydrophor] Med 04/17/23 08:00 Active
See Dose Instructions TOPICAL DAILY
Prednisone [Deltasone] Med 04/29/23 08:00 Active
10 mg PO DAILY
Sodium Chloride/Aloe Vera [[place] Saline Nasal Gel] Med 04/17/23 02:09 Active
See Dose Instructions NASAL Q2HPRN PRN
Vitals:
Temp Pulse Resp BP Pulse Ox
98.1 F 91 26 146/82 96
04/28/23 12:05 04/28/23 14:00 04/28/23 14:00 04/28/23 11:49 04/28/23 11:50
Height 5 ft 9 in
Actual Weight 225.889 kg
Body Mass Index (BMI) 73.6
Physical Exam:
General Appearance/Observation: Morbidly obese female in no apparent distress resting in bed on 3L O2 via cannula.
Pain/Comfort Assessment: Back
Mood/Affect: Appropriate, pleasant
Integumentary/Operative Site: Bilateral legs wrapped with Stanford wrap.
Eyes: Conjunctiva/Lids: normal ��� Pupils: pupils equal round
Ears/Nose/Throat: oral mucosa moist,� throat clear.������������ Lips/Teeth/Gums: normal
Neck: No muscle spasm
Cardiovascular: Heart: regular, no murmur
Musculoskeletal: Moderate tenderness with palpation- Lumbar paraspinals, Quadratum lumborum tender with deep palpation
Pulses: dorsalis pedis 1+ bilaterally
Respiratory: Respiratory Effort/Chest Expansion: normal ������ Auscultation:grossly Clear to auscultation bilaterally
Gastrointestinal: abdomen mildly tender, distended due to body habitus, overactive abdominal bowel sounds
Genitourinary: No Sanchez
Extremities: Edema: Pitting edema bilateral legs Cyanosis: None Trophic changes: bilateral legs wrapped in stanford
Neurology Exam:
Orientation: Alert, Oriented to self, Time, Place
Memory: Intact for most recent medical concerns
Comprehension: Intact
Two step command: Intact
Naming: Intact
Cranial Nerves:
�� CNII: Pupillary light reflex: Intact���
�� CN III, IV, : Extraocular muscles: Intact
�� CN VII: Facial movement: Symmetric
�� CN VIII: Hearing: Normal
�� CN IX/X: Speech & swallow: Normal, Position of Uvula: Midline
�� CN XI: Shoulder shrug: Symmetric
�� CN XII: Tongue protrusion: Midline
Sensory:
�� Light touch: Intact in bilateral upper and lower extremities
�
Reflexes:
�� Biceps: 1+ bilaterally
�� Brachioradialis: 1+ bilaterally
�� Triceps: trace+ bilaterally
�� Patellar: 1+ bilaterally
�� Achilles: 1+ bilaterally
�� Clonus: None
�� Chirag: Negative bilaterally
Musculoskeletal: Motor: (Manual muscle scale 0-5)
Muscle SA EF WE EE FF FA HF KE DF EHL PF
Right� 4 5 4 5 2 4 5 5 5
Left 4 5 4 5 2 4 5 5 5
Tone: Normal in all extremities, has some tenderness in bilateral lower back.
Range of Motion: Passively within normal limits in all extremities, hip joint limited in bed.
Lab Results
Labs
WBC 12.3 10^3/uL (4.8-10.8) H 04/27/23 04:49
RBC 3.93 10^6/uL (4.20-5.40) L 04/27/23 04:49
Hgb 11.4 g/dL (12.0-16.0) L 04/27/23 04:49
Hct 34.6 % (37.0-47.0) L 04/27/23 04:49
MCV 88.0 fL (81.0-99.0) 04/27/23 04:49
MCH 29.0 pg (27.0-31.0) 04/27/23 04:49
MCHC 32.9 g/dL (33.0-37.0) L 04/27/23 04:49
RDW 14.2 % (11.5-14.5) 04/27/23 04:49
Plt Count 486 10^3/uL (130-400) H 04/27/23 04:49
MPV 9.0 fL (7.4-10.4) 04/27/23 04:49
Abs Immat Gran (auto) 0.1 10^3/uL (0-0.05) H 04/16/23 04:07
Absolute Neuts (auto) 14.3 10^3/uL (1.4-6.5) H 04/16/23 04:07
Absolute Lymphs (auto) 0.8 10^3/uL (1.2-3.4) L 04/16/23 04:07
Absolute Monos (auto) 0.4 10^3/uL (0.1-0.6) 04/16/23 04:07
Absolute Eos (auto) 0.0 10^3/uL (0-0.7) 04/16/23 04:07
Absolute Basos (auto) 0.0 10^3/uL (0-0.2) 04/16/23 04:07
Immature Gran % 0.6 % (0-0.5) H 04/16/23 04:07
Neutrophils % 91.2 % (42.2-75.2) H 04/16/23 04:07
Lymphocytes % 5.3 % (20.5-51.1) L 04/16/23 04:07
Monocytes % 2.7 % (1.7-9.3) 04/16/23 04:07
Eosinophils % 0.0 % (0-6) 04/16/23 04:07
Basophils % 0.2 % (0-2) 04/16/23 04:07
Nucleated RBC % 0 % 04/16/23 04:07
PT 15.5 Sec (11.4-14.6) H 04/18/23 08:15
INR 1.20 04/18/23 08:15
APTT 24.9 Sec (23.4-35.0) 04/18/23 08:15
pH Cancelled 04/18/23 19:28
pCO2 Cancelled 04/18/23 19:28
pO2 Cancelled 04/18/23 19:28
HCO3 Cancelled 04/18/23 19:28
Base Excess Cancelled 04/18/23 19:28
ABG O2 Sat (Measured) Cancelled 04/18/23 19:28
Sodium Cancelled 04/18/23 19:28
Potassium Cancelled 04/18/23 19:28
O2 Delivery Level Cancelled 04/18/23 19:28
Sodium 135 mmol/L (135-145) 04/27/23 04:49
Potassium 4.4 mmol/L (3.5-5.1) 04/27/23 04:49
Chloride 99 mmol/L (98-107) 04/27/23 04:49
Carbon Dioxide 30 mmol/L (22-30) 04/27/23 04:49
BUN 20 mg/dl (7-17) H 04/27/23 04:49
Creatinine 0.5 mg/dL (0.6-1.0) L 04/27/23 04:49
Estimated Creat Clear > 125 ml/min 04/27/23 04:49
eGFR > 60.00 04/27/23 04:49
Glucose 114 mg/dl (70-99) H 04/27/23 04:49
Lactic Acid Cancelled 04/15/23 17:00
Calcium 9.3 mg/dl (8.4-10.2) 04/27/23 04:49
Ionized Calcium Cancelled 04/18/23 19:28
Phosphorus 4.4 mg/dl (2.5-4.5) 04/22/23 06:07
Magnesium 2.2 mg/dl (1.6-2.3) 04/22/23 06:07
Total Bilirubin 0.6 mg/dl (0.2-1.3) 04/26/23 04:48
AST 56 U/L (14-36) H 04/26/23 04:48
ALT 98 U/L (0-35) H 04/26/23 04:48
Alkaline Phosphatase 65 U/L (38-126) 04/26/23 04:48
Troponin I < 0.012 ng/ml 04/15/23 13:43
Zaz-Y-Fmkgrchsjyl Pept 302 pg/ml 04/18/23 12:03
Total Protein 6.9 g/dl (6.3-8.2) 04/26/23 04:48
Albumin 3.3 g/dl (3.5-5.0) L 04/26/23 04:48
Procalcitonin < 0.05 ng/ml (0.0-0.25) 04/25/23 08:35
Urine Color Hanh 04/15/23 22:08
Urine Clarity Slightly cloudy (Clear) 04/15/23 22:08
Urine pH 6.5 (5.0-9.0) 04/15/23 22:08
Ur Specific [place] 1.020 (<1.030) 04/15/23 22:08
Urine Ketones 1+ (Negative) A 04/15/23 22:08
Ur Occult Blood Reflex 4+ (Negative) A 04/15/23 22:08
Urine Nitrite (Reflex) Positive (Negative) A 04/15/23 22:08
Urine Bilirubin 1+ (Negative) A 04/15/23 22:08
Urine Urobilinogen Negative (Neg - 1+) 04/15/23 22:08
Leukocyte Esterase Rfl Trace (Negative) A 04/15/23 22:08
Urine RBC 30-40 /HPF (0-2) A 04/15/23 22:08
Urine WBC (Reflex) 30-40 /HPF (0-5) A 04/15/23 22:08
Ur Squamous Epith Cells 11-15 /LPF (Few) 04/15/23 22:08
Amorphous Crystals Seen 04/15/23 22:08
Urine Bacteria (Reflex) Moderate (Negative) A 04/15/23 22:08
Urine Glucose Negative (Negative) 04/15/23 22:08
Urine Albumin (Reflex) 3+ (Neg - Trace) A 04/15/23 22:08
Vancomycin Peak Cancelled 04/20/23 01:00
Vancomycin Trough 10.5 ug/ml (5-20) 04/20/23 05:26
SARS-CoV-2 Antigen Negative (Negative) 04/15/23 12:40
POC Glucose 119 mg/dl (70-99) H 04/19/23 06:06
�
Diagnostic Results: as per HPI
Assessment 38-year-old morbidly obese female with PMH of (chronic lower extremity edema, cellulitis, hypertension, suspected DAVID presenting with increasing shortness of breath for the past few days. Treated for pneumonia and sepsis. On taper
prednisone and oxygen with debility.
Plan
Debility: Resolving Pneumonia. PT/OT to increase independence with ADLs, improve balance, coordination, endurance, strength, mobility, community reintegration, decreased burden of care on others and family education.
Quadratus lumborum myofascial pain syndrome: Suggest heat on a routine basis, massage. Physical therapy evaluation for quadratus lumborum stretching with use of modalities such as ice, heat, or massage. Need for consistent interventions to help
expedite the recovery process. Lidocaine patch or Meño-dean like cream to to be placed over lumbar region.
-Avoid opioids as they are not helping and can cause further sedation.
- Proper bed positioning discussed with patient, currently slumped down in bed with no lower back support.�
HTN: continue metoprolol, hydralazine, monitor closely
HLD: Statin
DAVID:Per pulmonary-May continue nocturnal BiPAP while in the hospital or at rehab.� Will need sleep follow-up. .
Pneumonia: Completed antibiotics.�Cont prednisone taper for additional 3 days- per pulmonary. Eventual outpatient radiographic follow-up. Wean off oxygen. Guaifenesin for thick secretions.�Xopenex as needed
Bilateral lower extremity edema: Consider TEDS as able. Increased fluid will cause more force requirement to move lower extremities which requires more strength and increases fatigue.
Anemia: Likely multifactorial.� Continue to monitor. 11.4
Thrombocytosis: Continue to monitor.
Psych: Psychology consult.� Monitor mood, adjust medications as needed.
Skin: monitor for pressure sores/rashes/lesions.
Pain: acetaminophen, Lidoderrm patch, Heat, Ice live as needed. Tramadol prn
Bowel: Colace and Senna, PRN bisacodyl.
Bladder: Time void, PVRs, PRN straight cath as needed.
GI Prophylaxis: Pantoprazole
DVT Prophylaxis: Lovenox 60 mg at night, mechanical
Pulmonary: Incentive spirometry, Xopenex
Morbid obesity: Continue to grief counsellor patient about diet adjustments to control obesity. Body habitus and increased force to move body and extremities causes further difficulty with functional tasks.
Safety: Continue to reinforce assistance with all transfers.
Code Status:� Full code
Dispo (date/plan/equipment needs): Home with family care.� Social history reviewed.
Functional and Medical Goals: Modified Independent with ADL�s, ambulation, transfers
Discharge Destination: Acute inpatient Rehab at a facility that can accommodate bariatric accessibility.
Summary of recommendations:
Discharge Destination: Acute inpatient Rehab at a facility that can accommodate bariatric accessibility.
Debility: Resolving Pneumonia with deconditioning.
Quadratus lumborum myofascial pain syndrome: Suggest heat on a routine basis, massage. Physical therapy evaluation for quadratus lumborum stretching with use of modalities such as ice, heat, or massage. Need for consistent interventions to help
expedite the recovery process. Lidocaine patch or Meño-dean like cream to to be placed over lumbar region.
-Avoid opioids as they are not helping and can cause further sedation.
- Proper bed positioning discussed with patient, currently slumped down in bed with no lower back support.�
DVT Prophylaxis:Lovenox 60 mg at night, mechanical
Bilateral lower extremity edema: Consider TEDS as able. Stanford.Increased fluid will cause more force requirement to move lower extremities which requires more strength and increases fatigue.
Pneumonia: Completed antibiotics.�Cont prednisone taper for additional 3 days- per pulmonary. Eventual outpatient radiographic follow-up. Wean off oxygen. Guaifenesin for thick secretions.�Xopenex as needed
DAVID:Per pulmonary-May continue nocturnal BiPAP while in the hospital or at rehab.� Will need sleep follow-up. .
Attending statement:
I saw and examined the patient today. Reviewed care plan with patient, therapy, nursing, and physician medicine assistant. I agree with the above subjective, physical exam, and plan as documented above. Patient will benefit from an acute inpatient
rehabilitation program with bariatric accessibility to help patient get back to a modified independent functional level and return to home.
Thank you for allowing me to care for your patient. Please contact me with any questions or concerns.
--- NOTE | 2023-04-28 14:52 | CM ---
CM following re: discharge planning.
Reviewed pt's chart, met with pt.
According to pt will be ready for discharge tomorrow.
[facility] SNF has denied a referral due to weight over limit. Their weight limit is 400.00 Lb and pt currently 498.00 Lb. CM spoke to liaison Aubree
At this point SNF is not an option due to weight over limit. Pt is aware and she asked to help.
CM reviewed the case with [facility] acute director of rehabilitation and wellness, SNF level of care limitation and PM&R consult requested. 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
inability to place to a SNF will probably make pt eligible for an acute level of rehab.
PM&R consult requested.
Pt is aware of the plan, expressed her appreciation.
D/C plan: Acute rehab at [facility].
CM will follow with discharge plan updates as hospitalization progresses
[2023-04-28 16:20] VITALS: BP 109/96
[2023-04-28] MEDS: LOVENOX 60 MG SC (17:28)
[2023-04-28 22:02] VITALS: BP 140/82
[2023-04-28] MEDS: MELATONIN 10 MG PO (22:18)
[2023-04-29] VITALS (7 sets, daily range): BP systolic 122–146; BP diastolic 53–82; PULSE 5–88; BMI 73.4
[2023-04-29 04:07] LABS: Hematocrit 34.9 % (37.0-47.0); Hemoglobin 11.5 g/dL (12.0-16.0); Mean Corpuscular Hgb 28.8 pg (27.0-31.0); Mean Corpuscular Volume 87.5 fL (81.0-99.0); Mean Platelet Volume 8.9 fL (7.4-10.4); Platelet Count 476 10^3/uL (130-400); Red Blood Cell Count 3.99 10^6/uL (4.20-5.40); Red Cell Dist. Width 14.5 % (11.5-14.5)
[2023-04-29 04:40] LABS: Blood Urea Nitrogen 18 mg/dl (7-17); Calcium 9.3 mg/dl (8.4-10.2); Carbon Dioxide 30 mmol/L (22-30); Chloride 101 mmol/L (98-107); Estimated Creatinine Clearance > 125 ml/min; Glucose 105 mg/dl (70-99); Potassium 4.5 mmol/L (3.5-5.1); Sodium 134 mmol/L (135-145); eGFR > 60.00
[2023-04-29] MEDS: XOPENEX 1.25 MG INHALANT SOLUTION INH ×4 (07:43→19:12)
--- NOTE | 2023-04-29 07:45 | W.PN.HOSP.TC ---
Today's Communication/Plan
-
Discharge to acute rehab when bed available
Assessment / Plan
Assessment / Plan
HPI: 38-year-old with history of obesity, lymphedema, multiple episodes of cellulitis, hypertension, palpitations presenting with shortness of breath.� 2 weeks ago she felt like she had cold described as productive cough and hoarse voice.� Since
that time she is also noted drainage from her legs bilaterally and was concerned that she may have had cellulitis.� She was started on Keflex which she has been on for the past 5 days.� Since then she has been having increased shortness of breath
associate with increasing cough.� She denies fevers or chills, vomiting or abdominal pain or diarrhea.� She has tightness in her chest and in her back for the past day that is constant and she thinks is from coughing. She denies any history of lung
problems including asthma or COPD.� She denies smoking, alcohol or any drugs.
She has been seeing a curer foam rubber due to occasional symptoms of palpitations and saw her curer foam rubber last week without any official diagnosis of arrhythmia.
#Sepsis (fever, tachycardia, tachypnea) secondary to community-acquired pneumonia with severe dyspnea
#Acute hypoxic respiratory failure/with component of obstructive sleep apnea and hypoventilation from super morbid obesity
#History of MRSA positive sputum culture
Chest x-ray shows mild bilateral pneumonia, COVID and influenza negative/repeat chest x-ray continues to show bilateral inflammatory infiltrates
Respiratory failure multifactorial due to pneumonia and body habitus
Status post Precedex, currently on 3 L mid flow, wean as tolerated
Status post course of vancomycin, Zosyn
Status post IV dexamethasone, now currently on prednisone taper
Continue BiPAP at at bedtime while in the hospital/rehab
Stable for discharge to rehab when bed available
#Anxiety
Ativan as needed
#Food addiction
Mom reports that patient is unable to stop eating, suspect she has a psychiatric component to her overeating
Seen by psychiatry inpatient, recommend outpatient follow-up
#Severe obesity due to excess calories
-Patient has lost almost 50 pounds during this hospital admission, encourage patient to continue healthy weight loss
-BMI 73, affects all aspects of care. Referral placed in discharge information for Dr. Anneliese Flores
#Bilateral lower extremity cellulitis superimposed on chronic lymphedema
Status post outpatient Keflex for 5 days
Status post vancomycin and Zosyn
#Hyperkalemia
Resolved
S/p Lokelma
#Palpitations
-Follows with cardiology outpatient, resumed metoprolol
#Stage 2 buttocks pressure injury, POA
-Wound care, frequent turning
#History of multiple episodes of cellulitis
DVT prophylaxis�SQ Lovenox
Full code
Physical Exam
General: Morbidly obese, no acute distress
HEENT: Normocephalic, Atraumatic, EOMI, MMM
Respiratory: Clear to Auscultation bilaterally
Cardiac: Normal S1/S2, Regular Rate and Rhythm
GI: Soft, Nontender, Nondistended, Normal Bowel Sounds
Extremities: No Clubbing, Cyanosis
Bilateral lower extremity lymphedema noted with erythema
Anticipated Discharge: Within 24 hours
Subjective/Interval History
-
Date of Service: April 29, 2023
Patient's breathing continues to improve.
Objective Data
-
Labs:
Laboratory Results
04/29/23
03:53
WBC 11.0 H
Hgb 11.5 L
Hct 34.9 L
Plt Count 476 H
Sodium 134 L
Potassium 4.5
Chloride 101
Carbon Dioxide 30
BUN 18 H
Creatinine 0.5 L
Glucose 105 H
Calcium 9.3
Vital Signs:
Vital Signs
Temp Pulse Resp BP Pulse Ox
98.4 F 79 22 128/53 97
04/29/23 03:39 04/29/23 03:39 04/29/23 03:39 04/29/23 03:39 04/29/23 03:39
I&O
04/28/23 04/29/23 04/30/23
06:59 06:59 06:59
Intake Total 1680 / 1680 1440 / 1440
Output Total 1800 / 1800 2750 / 2750
Balance -120 / -120 -1310 / -1310
--- NOTE | 2023-04-29 08:25 | PTCARENOTE ---
Assumed care of pt at 0715 following shift report. Pt awake, having eaten breakfast and w/o complaints offered. Physical assessment completed. Comfort care and hygiene provided. Call [facility] remains w/in pt reach.
[2023-04-29] MEDS: TOPROL XL 25 MG PO (08:36)
[2023-04-29] MEDS: DELTASONE 10 MG PO (08:37)
[2023-04-29] MEDS: CLARITIN 10 MG PO (08:37)
[2023-04-29] MEDS: PROTONIX 40 MG PO (08:37)
[2023-04-29] MEDS: DESENEX/MITRAZOL/ZEASORB 1 APPLIC TOPICAL ×2 (10:56→21:52)
[2023-04-29] MEDS: HYDROPHOR 1 APPLIC TOPICAL (10:57)
--- NOTE | 2023-04-29 14:27 | WOUNDNOTE ---
WOC RN note: Spoke with Marry Beverly who stated she changed patient's LE dressings and reapplied Stanford wraps. Marry reports LE and buttocks skin improved. Will follow as needed.
--- NOTE | 2023-04-29 15:59 | CM ---
CM following re: discharge planning.
Reviewed pt's chart, met with pt.
PM&R evaluation noted. Acute level of rehab recommended.
CM spoke to [facility] acute vocational rehabilitation supervisor and she confirmed that pt is accepted for admission to [place] and an auth is requested.
CM called [facility] [phone], spoke to access representative Jt and an auth [facility] [place] [place] initiated. pending auth number is: [id number]. per R access representative Jt their UR case planner will
call tomorrow for clinical and final authorization.
Awaiting for [facility] call for clinical and an auth.
D/c plan: [place] [facility] at [facility].
CM will follow to assist pt with discharge to [place] [facility] at [facility].
--- NOTE | 2023-04-29 16:49 | PTCARENOTE ---
Pt continues to sit OOB in chair. No new complaints or changes noted. Pt to transfer to Rm 2125 when room ready. Pt made aware. Call [facility] remains w/in pt reach.
[2023-04-29] MEDS: LOVENOX 60 MG SC (17:42)
--- NOTE | 2023-04-29 18:02 | PTCARENOTE ---
Report called to 'Madina BERNARD'. Pt to transfer via chair w/ bed and personal belongings.
[2023-04-29] MEDS: MELATONIN 10 MG PO (21:52)
[2023-04-30] VITALS (8 sets, daily range): BP systolic 123–152; BP diastolic 61–92; PULSE 2–85
[2023-04-30] MEDS: XOPENEX 1.25 MG INHALANT SOLUTION INH ×2 (07:13→11:16)
--- NOTE | 2023-04-30 08:37 | W.PN.HOSP.TC ---
Today's Communication/Plan
-
Discharge to acute rehab when bed available
Assessment / Plan
Assessment / Plan
HPI: 38-year-old with history of obesity, lymphedema, multiple episodes of cellulitis, hypertension, palpitations presenting with shortness of breath.� 2 weeks ago she felt like she had cold described as productive cough and hoarse voice.� Since
that time she is also noted drainage from her legs bilaterally and was concerned that she may have had cellulitis.� She was started on Keflex which she has been on for the past 5 days.� Since then she has been having increased shortness of breath
associate with increasing cough.� She denies fevers or chills, vomiting or abdominal pain or diarrhea.� She has tightness in her chest and in her back for the past day that is constant and she thinks is from coughing. She denies any history of lung
problems including asthma or COPD.� She denies smoking, alcohol or any drugs.
She has been seeing a bailer tenders supervisor due to occasional symptoms of palpitations and saw her bailer tenders supervisor last week without any official diagnosis of arrhythmia.
#Sepsis (fever, tachycardia, tachypnea) secondary to community-acquired pneumonia with severe dyspnea
#Acute hypoxic respiratory failure/with component of obstructive sleep apnea and hypoventilation from super morbid obesity
#History of MRSA positive sputum culture
Chest x-ray shows mild bilateral pneumonia, COVID and influenza negative/repeat chest x-ray continues to show bilateral inflammatory infiltrates
Respiratory failure multifactorial due to pneumonia and body habitus
Status post Precedex, currently on 2.5 L mid flow, wean as tolerated
Status post course of vancomycin, Zosyn
Status post IV dexamethasone, status post prednisone taper
Continue BiPAP at at bedtime while in the hospital/rehab
Stable for discharge to acute rehab when bed available
#Anxiety
Ativan as needed
#Food addiction
Mom reports that patient is unable to stop eating, suspect she has a psychiatric component to her overeating
Seen by psychiatry inpatient, recommend outpatient follow-up
#Severe obesity due to excess calories
-Patient has lost almost 50 pounds during this hospital admission, encourage patient to continue healthy weight loss
-BMI 73, affects all aspects of care. Referral placed in discharge information for Dr. Ying Martini
#Bilateral lower extremity cellulitis superimposed on chronic lymphedema
Status post outpatient Keflex for 5 days
Status post vancomycin and Zosyn
#Hyperkalemia
Resolved
S/p Lokelma
#Palpitations
-Follows with cardiology outpatient, resumed metoprolol
#Stage 2 buttocks pressure injury, POA
-Wound care, frequent turning
#History of multiple episodes of cellulitis
DVT prophylaxis�SQ Lovenox
Full code
Physical Exam
General: Morbidly obese, no acute distress
HEENT: Normocephalic, Atraumatic, EOMI, MMM
Respiratory: Clear to Auscultation bilaterally
Cardiac: Normal S1/S2, Regular Rate and Rhythm
GI: Soft, Nontender, Nondistended, Normal Bowel Sounds
Extremities: No Clubbing, Cyanosis
Bilateral lower extremity lymphedema noted with erythema
Anticipated Discharge: Within 24 hours
Subjective/Interval History
-
Date of Service: April 29, 2023
Breathing continues to improve. She is down to 2.5 L.
Objective Data
-
Labs:
Laboratory Results
04/29/23
03:53
WBC 11.0 H
Hgb 11.5 L
Hct 34.9 L
Plt Count 476 H
Sodium 134 L
Potassium 4.5
Chloride 101
Carbon Dioxide 30
BUN 18 H
Creatinine 0.5 L
Glucose 105 H
Calcium 9.3
Vital Signs:
Vital Signs
Temp Pulse Resp BP Pulse Ox
97.5 F 86 19 122/66 94
04/29/23 10:57 04/29/23 10:00 04/29/23 10:00 04/29/23 08:36 04/29/23 08:15
I&O
04/28/23 04/29/23 04/30/23
06:59 06:59 06:59
Intake Total 1680 / 1680 1440 / 1440 480 / 480
Output Total 1800 / 1800 2750 / 2750 650 / 650
Balance -120 / -120 -1310 / -1310 -170 / -170
[2023-04-30] MEDS: PROTONIX 40 MG PO (08:59)
[2023-04-30] MEDS: TOPROL XL 25 MG PO (08:59)
[2023-04-30] MEDS: DELTASONE 10 MG PO (08:59)
[2023-04-30] MEDS: CLARITIN 10 MG PO (08:59)
[2023-04-30] MEDS: DESENEX/MITRAZOL/ZEASORB 1 APPLIC TOPICAL ×2 (09:00→20:50)
[2023-04-30] MEDS: HYDROPHOR 1 APPLIC TOPICAL (09:01)
--- NOTE | 2023-04-30 14:06 | CM ---
Cristina from [facility] ([phone]) called to offer patient a bed at the [facility]. Pending insurance authorization # [id number] was previously initiated with [employer] [facility]. [facility] called requesting medical records
for review. RN reviewer is Jazmin @ [phone]. Requested records be faxed to [phone]. This CM faxed records at this time. Updated patient on status of pending auth. Expressed understanding.
[2023-04-30] MEDS: LOVENOX 60 MG SC (17:34)
[2023-04-30] MEDS: APRESOLINE 5 MG IV (18:23)
[2023-04-30] MEDS: MELATONIN 10 MG PO (23:09)
[2023-05-01] VITALS (9 sets, daily range): BP systolic 114–142; BP diastolic 72–87; PULSE 2–108; O2SAT 93; BMI 72.9
--- NOTE | 2023-05-01 08:50 | W.PN.HOSP.TC ---
Today's Communication/Plan
-
Discharge to acute rehab when bed available
Assessment / Plan
Assessment / Plan
HPI: 38-year-old with history of obesity, lymphedema, multiple episodes of cellulitis, hypertension, palpitations presenting with shortness of breath.� 2 weeks ago she felt like she had cold described as productive cough and hoarse voice.� Since
that time she is also noted drainage from her legs bilaterally and was concerned that she may have had cellulitis.� She was started on Keflex which she has been on for the past 5 days.� Since then she has been having increased shortness of breath
associate with increasing cough.� She denies fevers or chills, vomiting or abdominal pain or diarrhea.� She has tightness in her chest and in her back for the past day that is constant and she thinks is from coughing. She denies any history of lung
problems including asthma or COPD.� She denies smoking, alcohol or any drugs.
She has been seeing a custom garment designer due to occasional symptoms of palpitations and saw her custom garment designer last week without any official diagnosis of arrhythmia.
#Sepsis (fever, tachycardia, tachypnea) secondary to community-acquired pneumonia with severe dyspnea
#Acute hypoxic respiratory failure/with component of obstructive sleep apnea and hypoventilation from super morbid obesity
#History of MRSA positive sputum culture
Chest x-ray shows mild bilateral pneumonia, COVID and influenza negative/repeat chest x-ray continues to show bilateral inflammatory infiltrates
Respiratory failure multifactorial due to pneumonia and body habitus
Status post Precedex, currently on 2.5 L mid flow, wean as tolerated
Status post course of vancomycin, Zosyn
Status post IV dexamethasone, status post prednisone taper
Continue BiPAP at at bedtime while in the hospital/rehab
Stable for discharge to acute rehab when bed available
#Anxiety
Ativan as needed
#Food addiction/eating disorder
Mom reports that patient is unable to stop eating, suspect she has a psychiatric component to her overeating
Seen by psychiatry inpatient, recommend outpatient follow-up
#Severe obesity due to excess calories
-Patient has lost over 50 pounds during this hospital admission, encourage patient to continue healthy weight loss
-BMI 73, affects all aspects of care. Referral placed in discharge information for Dr. Ying Martini
#Bilateral lower extremity cellulitis superimposed on chronic lymphedema
Status post outpatient Keflex for 5 days
Status post vancomycin and Zosyn
#Hyperkalemia
Resolved
S/p Lokelma
#Palpitations
-Follows with cardiology outpatient, resumed metoprolol
#Stage 2 buttocks pressure injury, POA
-Wound care, frequent turning
#History of multiple episodes of cellulitis
DVT prophylaxis�SQ Lovenox
Full code
Physical Exam
General: Morbidly obese, no acute distress
HEENT: Normocephalic, Atraumatic, EOMI, MMM
Respiratory: Clear to Auscultation bilaterally
Cardiac: Normal S1/S2, Regular Rate and Rhythm
GI: Soft, Nontender, Nondistended, Normal Bowel Sounds
Extremities: No Clubbing, Cyanosis
Bilateral lower extremity lymphedema noted with erythema
Anticipated Discharge: Today
Subjective/Interval History
-
Date of Service: May 01, 2023
No changes, continues to improve.
Objective Data
-
Vital Signs:
Vital Signs
Temp Pulse Resp BP Pulse Ox
98.3 F 91 28 142/81 95
05/01/23 07:00 05/01/23 07:00 05/01/23 07:00 05/01/23 07:00 05/01/23 07:00
I&O
04/30/23 05/01/23 05/02/23
06:59 06:59 06:59
Intake Total 960 / 960 2099 / 2099
Output Total 1050 / 1050 2450 / 2450
Balance -90 / -90 -350 / -350
[2023-05-01] MEDS: TOPROL XL 25 MG PO (09:20)
[2023-05-01] MEDS: CLARITIN 10 MG PO (09:20)
[2023-05-01] MEDS: PROTONIX 40 MG PO (09:21)
[2023-05-01] MEDS: DESENEX/MITRAZOL/ZEASORB 1 APPLIC TOPICAL ×2 (09:26→22:09)
[2023-05-01] MEDS: HYDROPHOR 1 APPLIC TOPICAL (09:27)
--- NOTE | 2023-05-01 13:32 | CM ---
[facility]. Awaiting insurance auth. All documents have been faxed on 04/30/23.
--- NOTE | 2023-05-01 16:10 | CM ---
Jazmin from [facility] called to inform the request for auth for acute rehab has been denied. A peer to peer has been offered. It must be done within 3 business days (05/06/23). Phone number to schedule is [phone]. Reference #
is [id number]. notified as well as Dr. Alcaraz. Patient also notified.
[2023-05-01] MEDS: LOVENOX 60 MG SC (17:08)
[2023-05-01] MEDS: MELATONIN 10 MG PO (22:06)
[2023-05-01] MEDS: TYLENOL 650 MG PO (23:01)
[2023-05-02] VITALS (8 sets, daily range): BP systolic 121–148; BP diastolic 73–88; PULSE 2–86
--- NOTE | 2023-05-02 08:49 | W.PN.HOSP.TC ---
Today's Communication/Plan
-
see bold
Assessment / Plan
Assessment / Plan
HPI: 38-year-old with history of obesity, lymphedema, multiple episodes of cellulitis, hypertension, palpitations presenting with shortness of breath.� 2 weeks ago she felt like she had cold described as productive cough and hoarse voice.� Since
that time she is also noted drainage from her legs bilaterally and was concerned that she may have had cellulitis.� She was started on Keflex which she has been on for the past 5 days.� Since then she has been having increased shortness of breath
associate with increasing cough.� She denies fevers or chills, vomiting or abdominal pain or diarrhea.� She has tightness in her chest and in her back for the past day that is constant and she thinks is from coughing. She denies any history of lung
problems including asthma or COPD.� She denies smoking, alcohol or any drugs.
She has been seeing a certified welder due to occasional symptoms of palpitations and saw her certified welder last week without any official diagnosis of arrhythmia.
#Sepsis (fever, tachycardia, tachypnea) secondary to community-acquired pneumonia with severe dyspnea
#Acute hypoxic respiratory failure/with component of obstructive sleep apnea and hypoventilation from super morbid obesity
#History of MRSA positive sputum culture
Chest x-ray shows mild bilateral pneumonia, COVID and influenza negative/repeat chest x-ray continues to show bilateral inflammatory infiltrates
Respiratory failure multifactorial due to pneumonia and body habitus
Status post Precedex, currently on 2.5-3 L flow, wean as tolerated
Status post course of vancomycin, Zosyn
Status post IV dexamethasone, status post prednisone taper
Continue BiPAP at at bedtime while in the hospital/rehab
Stable for discharge to acute rehab when bed available
Insurance denied acute rehab, Dr. Alcaraz to help with peer to peer
#Anxiety
Ativan as needed
#Food addiction/eating disorder
Mom reports that patient is unable to stop eating, suspect she has a psychiatric component to her overeating
Seen by psychiatry inpatient, recommend outpatient follow-up
#Severe obesity due to excess calories
-Patient has lost over 50 pounds during this hospital admission, encourage patient to continue healthy weight loss
-BMI 73, affects all aspects of care. Referral placed in discharge information for Dr. Ying Martini
#Bilateral lower extremity cellulitis superimposed on chronic lymphedema
Status post outpatient Keflex for 5 days
Status post vancomycin and Zosyn
#Hyperkalemia
Resolved
S/p Lokelma
#Palpitations
-Follows with cardiology outpatient, resumed metoprolol
#Stage 2 buttocks pressure injury, POA
-Wound care, frequent turning
#History of multiple episodes of cellulitis
DVT prophylaxis�SQ Lovenox
Full code
Physical Exam
General: Morbidly obese, no acute distress
HEENT: Normocephalic, Atraumatic, EOMI, MMM
Respiratory: Clear to Auscultation bilaterally
Cardiac: Normal S1/S2, Regular Rate and Rhythm
GI: Soft, Nontender, Nondistended, Normal Bowel Sounds
Extremities: No Clubbing, Cyanosis
Bilateral lower extremity lymphedema noted with erythema
Anticipated Discharge: 24 - 48 hours
Subjective/Interval History
-
Date of Service: May 02, 2023
No acute changes. Patient's breathing continues to improve.
Objective Data
-
Vital Signs:
Vital Signs
Temp Pulse Resp BP Pulse Ox
98.7 F 78 22 129/79 95
05/02/23 07:20 05/02/23 07:20 05/02/23 07:20 05/02/23 07:20 05/02/23 07:20
I&O
05/01/23 05/02/23 05/03/23
06:59 06:59 06:59
Intake Total 2100 / 2100 1580 / 1580
Output Total 2450 / 2450 950 / 950
Balance -350 / -350 630 / 630
[2023-05-02] MEDS: TOPROL XL 25 MG PO (09:05)
[2023-05-02] MEDS: PROTONIX 40 MG PO (09:05)
[2023-05-02] MEDS: CLARITIN 10 MG PO (09:05)
[2023-05-02] MEDS: HYDROPHOR 1 APPLIC TOPICAL (09:07)
[2023-05-02] MEDS: DESENEX/MITRAZOL/ZEASORB 1 APPLIC TOPICAL ×2 (09:07→22:57)
[2023-05-02] MEDS: LOVENOX 60 MG SC (17:05)
[2023-05-02] MEDS: MELATONIN 10 MG PO (23:10)
[2023-05-03] VITALS (8 sets, daily range): BP systolic 130–160; BP diastolic 68–95; PULSE 2–85
--- NOTE | 2023-05-03 08:20 | W.PN.HOSP.TC ---
Today's Communication/Plan
-
Insurance denied acute rehab
Dr. Alcaraz to do peer to peer review
Assessment / Plan
Assessment / Plan
HPI: 38-year-old with history of obesity, lymphedema, multiple episodes of cellulitis, hypertension, palpitations presenting with shortness of breath.� 2 weeks ago she felt like she had cold described as productive cough and hoarse voice.� Since
that time she is also noted drainage from her legs bilaterally and was concerned that she may have had cellulitis.� She was started on Keflex which she has been on for the past 5 days.� Since then she has been having increased shortness of breath
associate with increasing cough.� She denies fevers or chills, vomiting or abdominal pain or diarrhea.� She has tightness in her chest and in her back for the past day that is constant and she thinks is from coughing. She denies any history of lung
problems including asthma or COPD.� She denies smoking, alcohol or any drugs.
She has been seeing a lead embedded software engineer due to occasional symptoms of palpitations and saw her lead embedded software engineer last week without any official diagnosis of arrhythmia.
#Sepsis (fever, tachycardia, tachypnea) secondary to community-acquired pneumonia with severe dyspnea
#Acute hypoxic respiratory failure/with component of obstructive sleep apnea and hypoventilation from super morbid obesity
#History of MRSA positive sputum culture
Chest x-ray shows mild bilateral pneumonia, COVID and influenza negative/repeat chest x-ray continues to show bilateral inflammatory infiltrates
Respiratory failure multifactorial due to pneumonia and body habitus
Status post Precedex, currently on 2 L flow, wean as tolerated
Status post course of vancomycin, Zosyn
Status post IV dexamethasone, status post prednisone taper
Continue BiPAP at at bedtime while in the hospital/rehab
Stable for discharge to acute rehab when bed available
Insurance denied acute rehab, Dr. Alcaraz to help with peer to peer
#Anxiety
Ativan as needed
#Food addiction/eating disorder
Mom reports that patient is unable to stop eating, suspect she has a psychiatric component to her overeating
Seen by psychiatry inpatient, recommend outpatient follow-up
#Severe obesity due to excess calories
-Patient has lost over 50 pounds during this hospital admission, encourage patient to continue healthy weight loss
-BMI 73, affects all aspects of care. Referral placed in discharge information for Dr. Ying Martini
#Bilateral lower extremity cellulitis superimposed on chronic lymphedema
Status post outpatient Keflex for 5 days
Status post vancomycin and Zosyn
#Hyperkalemia
Resolved
S/p Lokelma
#Palpitations
-Follows with cardiology outpatient, resumed metoprolol
#Stage 2 buttocks pressure injury, POA
-Wound care, frequent turning
#History of multiple episodes of cellulitis
DVT prophylaxis�SQ Lovenox
Full code
Physical Exam
General: Morbidly obese, no acute distress
HEENT: Normocephalic, Atraumatic, EOMI, MMM
Respiratory: Clear to Auscultation bilaterally
Cardiac: Normal S1/S2, Regular Rate and Rhythm
GI: Soft, Nontender, Nondistended, Normal Bowel Sounds
Extremities: No Clubbing, Cyanosis
Bilateral lower extremity lymphedema noted with erythema
Anticipated Discharge: 24 - 48 hours
Subjective/Interval History
-
Date of Service: May 03, 2023
Breathing continues to improve.
Objective Data
-
Vital Signs:
Vital Signs
Temp Pulse Resp BP Pulse Ox
98.4 F 97 20 142/83 92
05/03/23 03:06 05/03/23 03:06 05/03/23 03:06 05/03/23 03:06 05/03/23 03:06
I&O
05/02/23 05/03/23 05/04/23
06:59 06:59 06:59
Intake Total 1580 / 1580 1720 / 1720
Output Total 950 / 950 675 / 675
Balance 630 / 630 1045 / 1045
[2023-05-03] MEDS: PROTONIX 40 MG PO (08:42)
[2023-05-03] MEDS: CLARITIN 10 MG PO (08:42)
[2023-05-03] MEDS: TOPROL XL 25 MG PO (08:43)
[2023-05-03] MEDS: HYDROPHOR 1 APPLIC TOPICAL (08:44)
[2023-05-03] MEDS: DESENEX/MITRAZOL/ZEASORB 1 APPLIC TOPICAL ×2 (08:45→20:21)
[2023-05-03] MEDS: LOVENOX 60 MG SC (17:12)
[2023-05-03] MEDS: TYLENOL 650 MG PO (20:21)
[2023-05-03] MEDS: MELATONIN 10 MG PO (22:21)
[2023-05-04] VITALS (9 sets, daily range): BP systolic 135–161; BP diastolic 72–95; PULSE 2–97; O2SAT 92
--- NOTE | 2023-05-04 08:24 | W.PN.HOSP.TC ---
Today's Communication/Plan
-
Awaiting peer to peer review with utilization review for entrance to rehab facility
Remains deconditioned after extended course of respiratory failure/ pneumonia
Assessment / Plan
Assessment / Plan
HPI: 38-year-old with history of obesity, lymphedema, multiple episodes of cellulitis, hypertension, palpitations presenting with shortness of breath.� 2 weeks ago she felt like she had cold described as productive cough and hoarse voice.� Since
that time she is also noted drainage from her legs bilaterally and was concerned that she may have had cellulitis.� She was started on Keflex which she has been on for the past 5 days.� Since then she has been having increased shortness of breath
associate with increasing cough.� She denies fevers or chills, vomiting or abdominal pain or diarrhea.� She has tightness in her chest and in her back for the past day that is constant and she thinks is from coughing. She denies any history of lung
problems including asthma or COPD.� She denies smoking, alcohol or any drugs.
She has been seeing a hospitalist physician due to occasional symptoms of palpitations and saw her hospitalist physician last week without any official diagnosis of arrhythmia.
#Sepsis (fever, tachycardia, tachypnea) secondary to community-acquired pneumonia with severe dyspnea
#Acute hypoxic respiratory failure/with component of obstructive sleep apnea and hypoventilation from super morbid obesity
#History of MRSA positive sputum culture
Chest x-ray shows mild bilateral pneumonia, COVID and influenza negative/repeat chest x-ray continues to show bilateral inflammatory infiltrates
Respiratory failure multifactorial due to pneumonia and body habitus
Status post Precedex, currently on 2 L flow, wean as tolerated
Status post course of vancomycin, Zosyn
Status post IV dexamethasone, status post prednisone taper
Continue BiPAP at at bedtime while in the hospital/rehab
Stable for discharge to acute rehab when bed available
Insurance denied acute rehab, Dr. Alcaraz to help with peer to peer
#Anxiety
Ativan as needed
#Food addiction/eating disorder
Mom reports that patient is unable to stop eating, suspect she has a psychiatric component to her overeating
Seen by psychiatry inpatient, recommend outpatient follow-up
#Severe obesity due to excess calories
-Patient has lost over 50 pounds during this hospital admission, encourage patient to continue healthy weight loss
-BMI 73, affects all aspects of care. Referral placed in discharge information for Dr. Ying Martini
#Bilateral lower extremity cellulitis superimposed on chronic lymphedema
Status post outpatient Keflex for 5 days
Status post vancomycin and Zosyn
#Hyperkalemia
Resolved
S/p Lokelma
#Palpitations
-Follows with cardiology outpatient, resumed metoprolol
#Stage 2 buttocks pressure injury, POA
-Wound care, frequent turning
#History of multiple episodes of cellulitis
DVT prophylaxis�SQ Lovenox
Full code
Physical Exam
General: Morbidly obese, no acute distress
HEENT: Normocephalic, Atraumatic, EOMI, MMM
Respiratory: Clear to Auscultation bilaterally
Cardiac: Normal S1/S2, Regular Rate and Rhythm
GI: Soft, Nontender, Nondistended, Normal Bowel Sounds
Extremities: No Clubbing, Cyanosis
Bilateral lower extremity lymphedema noted with erythema
Anticipated Discharge: Within 24 hours
Subjective/Interval History
-
Date of Service: May 04, 2023
Failure morning well stool BiPAP uneventful night. Continues to use 1.5 L during the day of oxygen off antibiotics and steroids awaiting rehab disposition from peer to peer review today
Objective Data
-
Vital Signs:
Vital Signs
Temp Pulse Resp BP Pulse Ox
98.2 F 85 20 161/72 96
05/04/23 07:25 05/04/23 07:25 05/04/23 07:25 05/04/23 07:25 05/04/23 07:25
I&O
05/03/23 05/04/23 05/05/23
06:59 06:59 06:59
Intake Total 1720 / 1720 1000 / 1000
Output Total 675 / 675 900 / 900
Balance 1045 / 1045 100 / 100
Review of Systems
-
History Source: Patient
Constitutional: Reports Fatigue and Weakness
Skin: Reports Sores
Physical Exam
-
General: Appears Chronically Ill and Morbidly Obese (Super morbid obesity BMI of over 70)
HEENT: Normocephalic
Respiratory: Clear to Auscultation and Decreased Breath Sounds
Cardiac: Regular Rhythm
GI: Soft, Nontender, Nondistended and Other (Patulent and obese)
Musculoskeletal: Edema, Left Upper Extrem (Stanford wrap dressing bilateral) and Edema, Right Lower Extrem
Psych: Calm
Data Reviewed
-
Labs: Labs Reviewed by me
[2023-05-04] MEDS: DESENEX/MITRAZOL/ZEASORB 1 APPLIC TOPICAL ×2 (09:08→22:20)
[2023-05-04] MEDS: HYDROPHOR 1 APPLIC TOPICAL (09:08)
[2023-05-04] MEDS: CLARITIN 10 MG PO (09:09)
[2023-05-04] MEDS: PROTONIX 40 MG PO (09:09)
[2023-05-04] MEDS: TOPROL XL 25 MG PO (09:09)
--- NOTE | 2023-05-04 15:21 | CM ---
[facility] denied auth for acute rehab. Peer to peer was also denied but [facility] did say he would approve SNF. Patient has been supplied
[employer] list in desired zip code. She will choose preferences and referrals will be sent.
--- NOTE | 2023-05-04 15:25 | CM ---
[facility]
[2023-05-04] MEDS: LOVENOX 60 MG SC (17:35)
[2023-05-04] MEDS: MELATONIN 10 MG PO (22:20)
[2023-05-05] VITALS (9 sets, daily range): BP systolic 117–150; BP diastolic 73–91; PULSE 2–84
--- NOTE | 2023-05-05 08:21 | W.PN.HOSP.TC ---
Today's Communication/Plan
-
Patient medically stable for SNF
Her choice is [facility] asked her to relay this to case management
Continue BiPAP nightly with supplemental oxygen during the day as needed
Local wound care to lower extremities
Update labs for this week
Assessment / Plan
Assessment / Plan
HPI: 38-year-old with history of obesity, lymphedema, multiple episodes of cellulitis, hypertension, palpitations presenting with shortness of breath.� 2 weeks ago she felt like she had cold described as productive cough and hoarse voice.� Since
that time she is also noted drainage from her legs bilaterally and was concerned that she may have had cellulitis.� She was started on Keflex which she has been on for the past 5 days.� Since then she has been having increased shortness of breath
associate with increasing cough.� She denies fevers or chills, vomiting or abdominal pain or diarrhea.� She has tightness in her chest and in her back for the past day that is constant and she thinks is from coughing. She denies any history of lung
problems including asthma or COPD.� She denies smoking, alcohol or any drugs.
She has been seeing a dredge pipe installer due to occasional symptoms of palpitations and saw her dredge pipe installer last week without any official diagnosis of arrhythmia.
#Sepsis (fever, tachycardia, tachypnea) secondary to community-acquired pneumonia with severe dyspnea
#Acute hypoxic respiratory failure/with component of obstructive sleep apnea and hypoventilation from super morbid obesity
#History of MRSA positive sputum culture
Chest x-ray shows mild bilateral pneumonia, COVID and influenza negative/repeat chest x-ray continues to show bilateral inflammatory infiltrates
Respiratory failure multifactorial due to pneumonia and body habitus
Status post Precedex, currently on 2 L flow, wean as tolerated
Status post course of vancomycin, Zosyn
Status post IV dexamethasone, status post prednisone taper
Continue BiPAP at at bedtime while in the hospital/rehab
Stable for discharge to acute rehab when bed available
Insurance denied acute rehab, Dr. Alcaraz to help with peer to peer/also denied/looking for SNF
#Anxiety
Ativan as needed
#Food addiction/eating disorder
Mom reports that patient is unable to stop eating, suspect she has a psychiatric component to her overeating
Seen by psychiatry inpatient, recommend outpatient follow-up
#Severe obesity due to excess calories
-Patient has lost over 50 pounds during this hospital admission, encourage patient to continue healthy weight loss
-BMI 73, affects all aspects of care. Referral placed in discharge information for Dr. Ying Martini
#Bilateral lower extremity cellulitis superimposed on chronic lymphedema
Status post outpatient Keflex for 5 days
Status post vancomycin and Zosyn
#Hyperkalemia
Resolved
S/p Lokelma
#Palpitations
-Follows with cardiology outpatient, resumed metoprolol
#Stage 2 buttocks pressure injury, POA
-Wound care, frequent turning
#History of multiple episodes of cellulitis
DVT prophylaxis�SQ Lovenox
Full code
Physical Exam
General: Morbidly obese, no acute distress
HEENT: Normocephalic, Atraumatic, EOMI, MMM
Respiratory: Clear to Auscultation bilaterally
Cardiac: Normal S1/S2, Regular Rate and Rhythm
GI: Soft, Nontender, Nondistended, Normal Bowel Sounds
Extremities: No Clubbing, Cyanosis
Bilateral lower extremity lymphedema noted with erythema
Anticipated Discharge: Within 24 hours
Subjective/Interval History
-
Date of Service: May 05, 2023
No issues overnight was on BiPAP remains this morning/acute rehab peer to peer was refused and looking for SNF placement and she is selected [facility] if available.
Objective Data
-
Vital Signs:
Vital Signs
Temp Pulse Resp BP Pulse Ox
98.1 F 96 20 134/81 92
05/05/23 03:56 05/05/23 03:56 05/05/23 03:56 05/05/23 03:56 01/23/24 03:56
I&O
05/04/23 05/05/23 05/06/23
06:59 06:59 06:59
Intake Total 1000 / 1000 2160 / 2160
Output Total 900 / 900 850 / 850
Balance 100 / 100 1310 / 1310
Review of Systems
-
History Source: Patient
Constitutional: Reports Fatigue
Respiratory: Reports Trouble Breathing
Cardiac: Reports No Symptoms
Musculoskeletal: Reports No Symptoms
Skin: Reports Sores
Physical Exam
-
General: Morbidly Obese
HEENT: Normocephalic
Respiratory: Rhonchi
Cardiac: Regular Rhythm
GI: Soft
Musculoskeletal: Edema, Right Lower Extrem and Edema, Left Lower Extrem
Neuro: Awake
Data Reviewed
-
Total Time Spent with Patient (in minutes): 45
Labs: Labs Reviewed by me
[2023-05-05] MEDS: TOPROL XL 25 MG PO (09:14)
[2023-05-05] MEDS: PROTONIX 40 MG PO (09:14)
[2023-05-05] MEDS: CLARITIN 10 MG PO (09:14)
[2023-05-05] MEDS: DESENEX/MITRAZOL/ZEASORB 1 APPLIC TOPICAL ×2 (09:15→21:00)
[2023-05-05] MEDS: HYDROPHOR 1 APPLIC TOPICAL (09:15)
--- NOTE | 2023-05-05 09:32 | CM ---
CM following re:discharge planning.
Reviewed pt's chart, met with pt.
Per CM note, peer to peer appeal for acute rehab has been denied and per [facility] medical payment poster SNF level of care will be approved. Pt's weight is an obstacle to get the pt to a SNF.
PT and OT continue recommend SNF. Pt is able to walk up to 20 feet with min assist.
CM spoke to [facility] liaison and she stated there is no bed available at [facility] but [facility] has beds available. A referral to [facility] location made. Awaiting for determination.
D/C plan: preferred/accepted SNF.
CM will follow to assist pt with discharge to an accepted/preferred SNF.
[2023-05-05] MEDS: APRESOLINE 5 MG IV (13:07)
[2023-05-05] MEDS: LOVENOX 60 MG SC (17:55)
[2023-05-05] MEDS: XOPENEX 1.25 MG INHALANT SOLUTION INH (20:11)
[2023-05-05] MEDS: MELATONIN 10 MG PO (21:27)
[2023-05-06] VITALS (10 sets, daily range): BP systolic 120–145; BP diastolic 74–85; PULSE 2–93; O2SAT 94–97
[2023-05-06 05:55] LABS: Blood Urea Nitrogen 16 mg/dl (7-17); Calcium 9.3 mg/dl (8.4-10.2); Carbon Dioxide 29 mmol/L (22-30); Chloride 99 mmol/L (98-107); Estimated Creatinine Clearance > 125 ml/min; Glucose 111 mg/dl (70-99); Potassium 3.9 mmol/L (3.5-5.1); Sodium 137 mmol/L (135-145); eGFR > 60.00
[2023-05-06] MEDS: TOPROL XL 25 MG PO (08:34)
[2023-05-06] MEDS: PROTONIX 40 MG PO (08:35)
[2023-05-06] MEDS: CLARITIN 10 MG PO (08:35)
[2023-05-06] MEDS: HYDROPHOR 1 APPLIC TOPICAL (08:36)
[2023-05-06] MEDS: DESENEX/MITRAZOL/ZEASORB 1 APPLIC TOPICAL ×2 (08:36→21:00)
--- NOTE | 2023-05-06 13:43 | W.DCSUMMARY ---
Discharge Summary
Discharge Data
Date of Admission: 04/15/23
Date of Discharge: 05/06/23
Total time spent discharging patient (in min): 45
-
Pending Results: No
Hospital Course
38-year-old female with super morbid obesity with BMI of over 73 chronic lower extremity edema cellulitis hypertension and suspected obstructive sleep apnea developed increasing shortness of breath and found to have upper respiratory infection and
treated as outpatient chest x-ray on presentation here showing interstitial pattern diffusely eventually requiring noninvasive ventilation after being placed on BiPAP she was treated as a community-acquired pneumonia she turned out to have MRSA
positive screen and will continue on vancomycin and Zosyn empiric management. Tested negative for COVID and influenza. Eventually migrated to BiPAP nightly with continued need for oxygen therapy throughout the day but with diminishing demand
presently at 1.5 L during the day. She had consults with the pulmonary service and the gamb cutter service/she remains profoundly weakened and deconditioned she will need follow-up for obesity management as an outpatient with Dr. Martini she has had
gradual improvement in her bilateral infiltrates on chest x-ray with prior CT imaging also reviewed showing normal parenchyma. She has lost approximately 50 pounds of weight during hospitalization she has been maintained on a 2000-calorie
controlled diet which is encouraged to be continued./Attempts made for entrance and acute rehab were not authorized through insurance even after peer to peer review with utilization review physician here and deemed stable for discharge to a subacute
nursing facility for further management of her deconditioning ongoing hypoxia with BiPAP nightly wound care of lower extremities and suggested she undergo sleep apnea assessment as an outpatient when further stabilized for suspected obstructive
sleep apnea and hypoventilation. She has been maintained off antibiotic course for the last 5 days she will require as needed dosages of Xopenex she should be maintained on not apparent DVT prophylaxis at 60 mg daily p.m. till further mobility
continue on PPI and low-dose metoprolol.
Imaging is reported below
CXR 04-18-23 c/w below, underpenetrated poor quality film but seemingly worse bilat infiltrates
Chest X-Ray: 04/15/23- New findings concerning for mild bilateral pneumonia. Findings related to limited inspiration cannot be completely excluded. Clinical and laboratory correlation recommended.
CHEST 03/31/23- Limited study demonstrating no active cardiopulmonary disease. There is no large central pulmonary embolus. Evaluation for peripheral pulmonary embolism is limited by the patient's large size
TTE 02-27-23: very technically difficult, contrasted, LVEF 55-60%
Discharge Plan
-
Patient Disposition: Jail/SNF
Discharge Diagnosis/Procedures: Sepsis secondary community-acquired pneumonia with severe dyspnea
Acute hypoxic respiratory failure with obstructive sleep apnea component and hypoventilation from super morbid obesity(referral placed to Dr. Ying Martini
Bilateral lower extremity cellulitis superimposed on chronic lymphedema
Stage II buttock pressure injuries prior to admission
Diet: Diabetic, Carb Controlled
Additional Diets: 2000-calorie
Activity: With assistance
Additional Activity: BiPAP nightly
Driving Restrictions: As prior to admission
Activity Restrictions/Additional Instructions:
Follow-up with obesity medicine specialist Dr. Martini
Wound Care Instructions
Bilateral le's-clean with saline or Vashe wound cleanser, Aquaphor ointment to dry skin Le's daily, adaptic, ABD pad, secure with Kerlix wrap, change daily and as needed for drainage (add alginate after adaptic as needed for large amount of
drainage).
Miconazole powder to abdominal/groin folds, affected skin folds twice a day.
Barrier ointment to buttocks/betsy/posterior upper thighs twice a day (i.e. Petroleum ointment or Calazime).
Bilateral knee high Stanford wraps as tolerated; may remove at bedtime; re-wrap every am.
Follow up at wound care center call for an appointment.
Referrals:
Abel Thurman MD [Active] - in three to four weeks
(May see BOOK CUTTER. DAVID?[facility].
Will need a CXR prior visit)
NONE,* [Active] -
Ying Martini MD [Active] - in three to four weeks (Obesity medicine)
Prescriptions:
New
miconazole nitrate [Miconazorb AF] 2 % Powder
1 applic topical BID Qty: 85 0RF
pantoprazole 40 mg Tablet,Delayed Release (Dr/Ec)
40 mg PO DAILY Qty: 0 0RF
levalbuterol HCl 1.25 mg/3 mL Solution For Nebulization
1.25 mg inhalation R [id number] PRN (Reason: sob/wheeze) Qty: 72 0RF
enoxaparin 60 mg/0.6 mL Syringe
60 mg SC QPM Qty: 0 0RF
melatonin 5 mg Tablet
10 mg PO HS Qty: 10 0RF
Continued
therapeutic multivitamin Tablet
1 tab PO DAILY
cholecalciferol (vitamin D3) [Vitamin D3] 50 mcg (2,000 unit) Tablet
50 mcg PO DAILY
metoprolol succinate 25 mg Tablet Extended Release 24 Hr
25 mg PO DAILY Qty: 30 0RF
cetirizine 10 mg Tablet
10 mg PO DAILY
Discontinued
naproxen 500 mg tablet
500 mg PO [id number] PRN (Reason: mild to moderate pain)
cephalexin 500 mg capsule
500 mg PO Q12H
Patient Comments:
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
Discharge Orders:
Discharge Patient (As Directed); Ordered 05/06/23
Ordered By: Hemal Taylor
--- NOTE | 2023-05-06 16:58 | CM ---
[facility] has accepted patient for SNF services. They are not in network with [facility]. This CM initiated auth request at [facility] as well as a single case agreement per Manito request. Auth reference # is: [id number]. Awaiting response.
[2023-05-06] MEDS: LOVENOX 60 MG SC (17:09)
[2023-05-06] MEDS: XOPENEX 1.25 MG INHALANT SOLUTION INH ×2 (17:17→20:44)
--- NOTE | 2023-05-06 17:39 | PTCARENOTE ---
pt noted with a non productive cough. denies sob, denies chest pain, no wheezing noted on auscultation. Pt is AAAX3. aware. New order for benzonatate ordered.
--- NOTE | 2023-05-06 17:40 | W.PN.HOSP.TC ---
Today's Communication/Plan
-
Patient medically stable for rehab
Still awaiting authorization from insurance for rehab
Continue nightly BiPAP and as needed leaalbuterol
Cough supplement benzonatate
Enforce activity and inspiratory capacity
Continue on enoxaparin DVT prophylaxis
Assessment / Plan
Assessment / Plan
HPI: 38-year-old with history of obesity, lymphedema, multiple episodes of cellulitis, hypertension, palpitations presenting with shortness of breath.� 2 weeks ago she felt like she had cold described as productive cough and hoarse voice.� Since
that time she is also noted drainage from her legs bilaterally and was concerned that she may have had cellulitis.� She was started on Keflex which she has been on for the past 5 days.� Since then she has been having increased shortness of breath
associate with increasing cough.� She denies fevers or chills, vomiting or abdominal pain or diarrhea.� She has tightness in her chest and in her back for the past day that is constant and she thinks is from coughing. She denies any history of lung
problems including asthma or COPD.� She denies smoking, alcohol or any drugs.
She has been seeing a electric razor assembler due to occasional symptoms of palpitations and saw her electric razor assembler last week without any official diagnosis of arrhythmia.
#Sepsis (fever, tachycardia, tachypnea) secondary to community-acquired pneumonia with severe dyspnea
#Acute hypoxic respiratory failure/with component of obstructive sleep apnea and hypoventilation from super morbid obesity
#History of MRSA positive sputum culture
Chest x-ray shows mild bilateral pneumonia, COVID and influenza negative/repeat chest x-ray continues to show bilateral inflammatory infiltrates
Respiratory failure multifactorial due to pneumonia and body habitus
Status post Precedex, currently on 2 L flow, wean as tolerated
Status post course of vancomycin, Zosyn
Status post IV dexamethasone, status post prednisone taper
Continue BiPAP at at bedtime while in the hospital/rehab
Stable for discharge to acute rehab when bed available
Insurance denied acute rehab, Dr. Alcaraz to help with peer to peer/also denied/looking for SNF
#Anxiety
Ativan as needed
#Food addiction/eating disorder
Mom reports that patient is unable to stop eating, suspect she has a psychiatric component to her overeating
Seen by psychiatry inpatient, recommend outpatient follow-up
#Severe obesity due to excess calories
-Patient has lost over 50 pounds during this hospital admission, encourage patient to continue healthy weight loss
-BMI 73, affects all aspects of care. Referral placed in discharge information for Dr. Ying Martini
#Bilateral lower extremity cellulitis superimposed on chronic lymphedema
Status post outpatient Keflex for 5 days
Status post vancomycin and Zosyn
#Hyperkalemia
Resolved
S/p Lokelma
#Palpitations
-Follows with cardiology outpatient, resumed metoprolol
#Stage 2 buttocks pressure injury, POA
-Wound care, frequent turning
#History of multiple episodes of cellulitis
DVT prophylaxis�SQ Lovenox
Full code
Physical Exam
General: Morbidly obese, no acute distress
HEENT: Normocephalic, Atraumatic, EOMI, MMM
Respiratory: Clear to Auscultation bilaterally
Cardiac: Normal S1/S2, Regular Rate and Rhythm
GI: Soft, Nontender, Nondistended, Normal Bowel Sounds
Extremities: No Clubbing, Cyanosis
Bilateral lower extremity lymphedema noted with erythema
Anticipated Discharge: Today
Subjective/Interval History
-
Date of Service: May 06, 2023
Not much change BiPAP nightly dry cough
Objective Data
-
Labs:
Laboratory Results
05/06/23
04:43
Sodium 137
Potassium 3.9
Chloride 99
Carbon Dioxide 29
BUN 16
Creatinine 0.5 L
Glucose 111 H
Calcium 9.3
Vital Signs:
Vital Signs
Temp Pulse Resp BP Pulse Ox
97.7 F 89 18 130/85 99
05/06/23 15:22 05/06/23 17:21 05/06/23 17:21 05/06/23 15:22 05/06/23 17:21
I&O
05/05/23 05/06/23 05/07/23
06:59 06:59 06:59
Intake Total 2160 / 2160 1860 / 1860 1200 / 1200
Output Total 850 / 850 900 / 900 300 / 300
Balance 1310 / 1310 960 / 960 900 / 900
[2023-05-06] MEDS: TESSALON PERLES 200 MG PO (17:47)
[2023-05-06] MEDS: MELATONIN 10 MG PO (21:05)
[2023-05-07] VITALS (7 sets, daily range): BP systolic 117–154; BP diastolic 56–89; PULSE 2–91
[2023-05-07] MEDS: CLARITIN 10 MG PO (09:03)
[2023-05-07] MEDS: PROTONIX 40 MG PO (09:05)
[2023-05-07] MEDS: TOPROL XL 25 MG PO (09:06)
--- NOTE | 2023-05-07 09:06 | W.PN.HOSP.TC ---
Today's Communication/Plan
-
Still awaiting authorization for rehab transfer
Remains medically stable respiratory status stable
Stable vitals
Continue meds benzonatate for cough
Discharge orders in
Assessment / Plan
Assessment / Plan
HPI: 38-year-old with history of obesity, lymphedema, multiple episodes of cellulitis, hypertension, palpitations presenting with shortness of breath.� 2 weeks ago she felt like she had cold described as productive cough and hoarse voice.� Since
that time she is also noted drainage from her legs bilaterally and was concerned that she may have had cellulitis.� She was started on Keflex which she has been on for the past 5 days.� Since then she has been having increased shortness of breath
associate with increasing cough.� She denies fevers or chills, vomiting or abdominal pain or diarrhea.� She has tightness in her chest and in her back for the past day that is constant and she thinks is from coughing. She denies any history of lung
problems including asthma or COPD.� She denies smoking, alcohol or any drugs.
She has been seeing a real estate clerk due to occasional symptoms of palpitations and saw her real estate clerk last week without any official diagnosis of arrhythmia.
#Sepsis (fever, tachycardia, tachypnea) secondary to community-acquired pneumonia with severe dyspnea
#Acute hypoxic respiratory failure/with component of obstructive sleep apnea and hypoventilation from super morbid obesity
#History of MRSA positive sputum culture
Chest x-ray shows mild bilateral pneumonia, COVID and influenza negative/repeat chest x-ray continues to show bilateral inflammatory infiltrates
Respiratory failure multifactorial due to pneumonia and body habitus
Status post Precedex, currently on 2 L flow, wean as tolerated
Status post course of vancomycin, Zosyn
Status post IV dexamethasone, status post prednisone taper
Continue BiPAP at at bedtime while in the hospital/rehab
Stable for discharge to acute rehab when bed available
Insurance denied acute rehab, Dr. Alcaraz to help with peer to peer/also denied/looking for SNF
#Anxiety
Ativan as needed
#Food addiction/eating disorder
Mom reports that patient is unable to stop eating, suspect she has a psychiatric component to her overeating
Seen by psychiatry inpatient, recommend outpatient follow-up
#Severe obesity due to excess calories
-Patient has lost over 50 pounds during this hospital admission, encourage patient to continue healthy weight loss
-BMI 73, affects all aspects of care. Referral placed in discharge information for Dr. Ying Martini
#Bilateral lower extremity cellulitis superimposed on chronic lymphedema
Status post outpatient Keflex for 5 days
Status post vancomycin and Zosyn
#Hyperkalemia
Resolved
S/p Lokelma
#Palpitations
-Follows with cardiology outpatient, resumed metoprolol
#Stage 2 buttocks pressure injury, POA
-Wound care, frequent turning
#History of multiple episodes of cellulitis
DVT prophylaxis�SQ Lovenox
Full code
Physical Exam
General: Morbidly obese, no acute distress
HEENT: Normocephalic, Atraumatic, EOMI, MMM
Respiratory: Clear to Auscultation bilaterally
Cardiac: Normal S1/S2, Regular Rate and Rhythm
GI: Soft, Nontender, Nondistended, Normal Bowel Sounds
Extremities: No Clubbing, Cyanosis
Bilateral lower extremity lymphedema noted with erythema
Anticipated Discharge: Today
Subjective/Interval History
-
Date of Service: May 07, 2023
Some cough overnight and a yesterday evening and called for a cough remedy that helped with benzonatate in no distress presently still on BiPAP from overnight.
Objective Data
-
Vital Signs:
Vital Signs
Temp Pulse Resp BP Pulse Ox
97.3 F 86 24 139/82 94
05/07/23 07:30 05/07/23 07:30 05/07/23 07:30 05/07/23 07:30 05/07/23 07:30
I&O
01/05/07/23 05/08/23
06:59 06:59 06:59
Intake Total 1860 / 1860 2160 / 2160
Output Total 900 / 900 750 / 750
Balance 960 / 960 1410 / 1410
Data Reviewed
-
Total Time Spent with Patient (in minutes): 43
[2023-05-07] MEDS: DESENEX/MITRAZOL/ZEASORB 1 APPLIC TOPICAL ×2 (09:14→20:43)
[2023-05-07] MEDS: HYDROPHOR TOPICAL ×2 (09:15→09:32)
--- NOTE | 2023-05-07 16:00 | CM ---
Insurance auth for SNF had been initiated on 05/06/23. This CM called insurance company this am for update. Supervisor Sanding, Hortencia, took lengthy message and said she would forward to appropriate department. Received a voice message this afternoon
which was less than clear. She said she forwarded case to MARCO ANTONIO Davis for review. Notified patient and patient's father. Updated on status. This CM also called Insurance CM, Idalmis, to inquire whether they have in network Bariatric facilities.
Left message. Idalmis # [phone]. Will follow-up in am.
[2023-05-07] MEDS: LOVENOX 60 MG SC (17:25)
[2023-05-07] MEDS: MELATONIN 10 MG PO (21:36)
[2023-05-08] VITALS (9 sets, daily range): BP systolic 114–145; BP diastolic 66–80; PULSE 2–93; O2SAT 97; BMI 73.4
--- NOTE | 2023-05-08 07:44 | W.PN.HOSP.TC ---
Today's Communication/Plan
-
Remains stable for discharge to a rehab facility that will accept
Will change discharge order from yesterday to today
Assessment / Plan
Assessment / Plan
HPI: 38-year-old with history of obesity, lymphedema, multiple episodes of cellulitis, hypertension, palpitations presenting with shortness of breath.� 2 weeks ago she felt like she had cold described as productive cough and hoarse voice.� Since
that time she is also noted drainage from her legs bilaterally and was concerned that she may have had cellulitis.� She was started on Keflex which she has been on for the past 5 days.� Since then she has been having increased shortness of breath
associate with increasing cough.� She denies fevers or chills, vomiting or abdominal pain or diarrhea.� She has tightness in her chest and in her back for the past day that is constant and she thinks is from coughing. She denies any history of lung
problems including asthma or COPD.� She denies smoking, alcohol or any drugs.
She has been seeing a medical operations supervisor due to occasional symptoms of palpitations and saw her medical operations supervisor last week without any official diagnosis of arrhythmia.
#Sepsis (fever, tachycardia, tachypnea) secondary to community-acquired pneumonia with severe dyspnea
#Acute hypoxic respiratory failure/with component of obstructive sleep apnea and hypoventilation from super morbid obesity
#History of MRSA positive sputum culture
Chest x-ray shows mild bilateral pneumonia, COVID and influenza negative/repeat chest x-ray continues to show bilateral inflammatory infiltrates
Respiratory failure multifactorial due to pneumonia and body habitus
Status post Precedex, currently on 2 L flow, wean as tolerated
Status post course of vancomycin, Zosyn
Status post IV dexamethasone, status post prednisone taper
Continue BiPAP at at bedtime while in the hospital/rehab
Stable for discharge to acute rehab when bed available
Insurance denied acute rehab, Dr. Alcaraz to help with peer to peer/also denied/looking for SNF
#Anxiety
Ativan as needed
#Food addiction/eating disorder
Mom reports that patient is unable to stop eating, suspect she has a psychiatric component to her overeating
Seen by psychiatry inpatient, recommend outpatient follow-up
#Severe obesity due to excess calories
-Patient has lost over 50 pounds during this hospital admission, encourage patient to continue healthy weight loss
-BMI 73, affects all aspects of care. Referral placed in discharge information for Dr. Ying Martini
#Bilateral lower extremity cellulitis superimposed on chronic lymphedema
Status post outpatient Keflex for 5 days
Status post vancomycin and Zosyn
#Hyperkalemia
Resolved
S/p Lokelma
#Palpitations
-Follows with cardiology outpatient, resumed metoprolol
#Stage 2 buttocks pressure injury, POA
-Wound care, frequent turning
#History of multiple episodes of cellulitis
DVT prophylaxis�SQ Lovenox
Full code
Physical Exam
General: Morbidly obese, no acute distress
HEENT: Normocephalic, Atraumatic, EOMI, MMM
Respiratory: Clear to Auscultation bilaterally
Cardiac: Normal S1/S2, Regular Rate and Rhythm
GI: Soft, Nontender, Nondistended, Normal Bowel Sounds
Extremities: No Clubbing, Cyanosis
Bilateral lower extremity lymphedema noted with erythema/ongoing wraps and wound care
Anticipated Discharge: Today
Subjective/Interval History
-
Date of Service: May 08, 2023
No changes tolerates nightly BiPAP and on low-flow oxygen during the day has not had significant need for nebulizer therapy no active bronchospasm noted or congestion.
Objective Data
-
Vital Signs:
Vital Signs
Temp Pulse Resp BP Pulse Ox
97.9 F 80 16 132/80 96
05/08/23 07:10 05/08/23 07:10 05/08/23 07:10 05/08/23 07:10 05/08/23 07:10
I&O
05/07/23 05/08/23 05/09/23
06:59 06:59 06:59
Intake Total 2160 / 2160 720 / 720
Output Total 750 / 750 600 / 600
Balance 1410 / 1410 120 / 120
[2023-05-08] MEDS: PROTONIX 40 MG PO (09:13)
[2023-05-08] MEDS: TOPROL XL 25 MG PO (09:13)
[2023-05-08] MEDS: CLARITIN 10 MG PO (09:13)
--- NOTE | 2023-05-08 09:16 | CM ---
Addendum entered by Jorge Araujo 05/08/23 16:46:
Received call from MARCO ANTONIO Poole reviewer at [facility] requesting records be faxed. I explained recent conversations with [facility] staff and that records were faxed to # previously provided. Zulema said she did not receive them and requested I fax them to her
directly to [phone]. I reiterated that we also need a single case agreement which I have stressed on all other phone contacts this CM has had with [facility]. Zulema said that will be an additional delay. She will ask for expeditious review. The
review is with a specialized committee. Zulema said she will do review for SNF immediately and call with determination. Records were faxed and Zulema then called with approval of SNF level of care. Case now in review for single case agreement. Zulema #
is [phone]. In the future MARCO ANTONIO Davis, will be the reviewer for future reviews. Her #'s are: [phone] and [phone].
Also, left message for SINDY Raygoza from [facility] ([phone]) on 05/07/23, requesting in network Bariatric facilities. She works [employer]. She returned call on this date and left message. No additional facilities noted at this time. This CM
returned call and left message.
Original Note:
Called and spoke with ISIAH at [facility] inquiring on status of auth that was initiated on 05/06/23. This CM awaiting notification and instructions for reference # [id number] for SNF. Patient was denied acute rehab and medical receptionist biller agreed to
approve SNF. Inital auth request called in on 05/06/22 [facility] said they will contact this CM, 2 follow-up calls were placed on 05/07/23, 1 questioning faxing records. [facility] again said they will contact this CM. This CM called [facility] this am and spoke with
ISIAH who said the case is pending awaiting records. Records have been faxed at this time to supplied fax # [phone]. Also noted that a single case agreement is needed.
[2023-05-08] MEDS: DESENEX/MITRAZOL/ZEASORB 1 APPLIC TOPICAL ×2 (09:17→20:00)
[2023-05-08] MEDS: HYDROPHOR 1 APPLIC TOPICAL (09:18)
[2023-05-08] MEDS: XOPENEX 1.25 MG INHALANT SOLUTION INH (12:12)
[2023-05-08] MEDS: TESSALON PERLES 200 MG PO (12:12)
--- NOTE | 2023-05-08 14:09 | CM ---
Received call from Linda from [facility].She stated that the SNF auth has been approved, however the single case agreement has not been reviewed and may take until next Thursday until we hear back from them. I stated that if [facility] has a [facility] SNF
that can accommodate a bariatric patient that we would be more than happy to send a referral to them. She stated she would have the patient's CM Idalmis call me back to discuss. Update to CM.
[2023-05-08] MEDS: LOVENOX 60 MG SC (17:11)
[2023-05-08] MEDS: MELATONIN 10 MG PO (21:17)
[2023-05-09] VITALS (7 sets, daily range): BP systolic 125–143; BP diastolic 71–86; PULSE 2–94
[2023-05-09] MEDS: ZOFRAN 4 MG IV (01:56)
--- NOTE | 2023-05-09 07:55 | W.PN.HOSP.TC ---
Today's Communication/Plan
-
Still awaiting bed assignment for rehab hold up being obtaining bariatric bed position.
With low-grade temperature elevation
Check CBC in a.m.
Assessment / Plan
Assessment / Plan
HPI: 38-year-old with history of obesity, lymphedema, multiple episodes of cellulitis, hypertension, palpitations presenting with shortness of breath.� 2 weeks ago she felt like she had cold described as productive cough and hoarse voice.� Since
that time she is also noted drainage from her legs bilaterally and was concerned that she may have had cellulitis.� She was started on Keflex which she has been on for the past 5 days.� Since then she has been having increased shortness of breath
associate with increasing cough.� She denies fevers or chills, vomiting or abdominal pain or diarrhea.� She has tightness in her chest and in her back for the past day that is constant and she thinks is from coughing. She denies any history of lung
problems including asthma or COPD.� She denies smoking, alcohol or any drugs.
She has been seeing a assessment rn due to occasional symptoms of palpitations and saw her assessment rn last week without any official diagnosis of arrhythmia.
#Sepsis (fever, tachycardia, tachypnea) secondary to community-acquired pneumonia with severe dyspnea
#Acute hypoxic respiratory failure/with component of obstructive sleep apnea and hypoventilation from super morbid obesity
#History of MRSA positive sputum culture
Chest x-ray shows mild bilateral pneumonia, COVID and influenza negative/repeat chest x-ray continues to show bilateral inflammatory infiltrates
Respiratory failure multifactorial due to pneumonia and body habitus
Status post Precedex, currently on 2 L flow, wean as tolerated
Status post course of vancomycin, Zosyn
Status post IV dexamethasone, status post prednisone taper
Continue BiPAP at at bedtime while in the hospital/rehab
Stable for discharge to acute rehab when bed available
Insurance denied acute rehab, Dr. Alcaraz to help with peer to peer/also denied/looking for SNF
#Anxiety
Ativan as needed
#Food addiction/eating disorder
Mom reports that patient is unable to stop eating, suspect she has a psychiatric component to her overeating
Seen by psychiatry inpatient, recommend outpatient follow-up
#Severe obesity due to excess calories
-Patient has lost over 50 pounds during this hospital admission, encourage patient to continue healthy weight loss
-BMI 73, affects all aspects of care. Referral placed in discharge information for Dr. Ying Martini
#Bilateral lower extremity cellulitis superimposed on chronic lymphedema
Status post outpatient Keflex for 5 days
Status post vancomycin and Zosyn
#Hyperkalemia
Resolved
S/p Lokelma
#Palpitations
-Follows with cardiology outpatient, resumed metoprolol
#Stage 2 buttocks pressure injury, POA
-Wound care, frequent turning
#History of multiple episodes of cellulitis
DVT prophylaxis�SQ Lovenox
Full code
Physical Exam
General: Morbidly obese, no acute distress
HEENT: Normocephalic, Atraumatic, EOMI, MMM
Respiratory: Clear to Auscultation bilaterally/scattered rhonchi
Cardiac: Normal S1/S2, Regular Rate and Rhythm
GI: Soft, Nontender, Nondistended, Normal Bowel Sounds
Extremities: No Clubbing, Cyanosis/lower extremity ulcerations dressed
Bilateral lower extremity lymphedema noted with erythema/ongoing wraps and wound care
Anticipated Discharge: > 48 hours
Subjective/Interval History
-
Date of Service: May 09, 2023
No new complaints/tolerating BiPAP/did have low-grade temperature elevation
Objective Data
-
Vital Signs:
Vital Signs
Temp Pulse Resp BP Pulse Ox
99.5 F 96 20 143/71 93
05/09/23 07:20 05/09/23 07:20 05/09/23 07:20 05/09/23 07:20 05/09/23 07:20
I&O
01/05/09/23 05/10/23
06:59 06:59 06:59
Intake Total 720 / 720 960 / 960
Output Total 600 / 600 300 / 300
Balance 120 / 120 660 / 660
Review of Systems
-
History Source: Patient
Constitutional: Reports Weight Loss, Fatigue and Weakness
Skin: Reports Sores
Physical Exam
-
General: Morbidly Obese (Super morbid obesity with a BMI of 70)
HEENT: Normocephalic
Respiratory: Rhonchi and Decreased Breath Sounds
Cardiac: Regular Rhythm
GI: Soft
Data Reviewed
-
Total Time Spent with Patient (in minutes): 45
Labs: Labs Reviewed by me
[2023-05-09] MEDS: TOPROL XL 25 MG PO (09:21)
[2023-05-09] MEDS: PROTONIX 40 MG PO (09:21)
[2023-05-09] MEDS: CLARITIN 10 MG PO (09:21)
[2023-05-09] MEDS: DESENEX/MITRAZOL/ZEASORB 1 APPLIC TOPICAL ×2 (09:22→20:53)
[2023-05-09] MEDS: HYDROPHOR 1 APPLIC TOPICAL (09:23)
[2023-05-09] MEDS: LOVENOX 60 MG SC (16:47)
[2023-05-09] MEDS: MELATONIN 10 MG PO (20:52)
[2023-05-10] VITALS (8 sets, daily range): BP systolic 114–145; BP diastolic 66–90; PULSE 2
--- NOTE | 2023-05-10 07:54 | W.PN.HOSP.TC ---
Today's Communication/Plan
-
Continue present management with nightly BiPAP
Awaiting rehab acceptance with bariatric bed
Update labs
Assessment / Plan
Assessment / Plan
HPI: 38-year-old with history of obesity, lymphedema, multiple episodes of cellulitis, hypertension, palpitations presenting with shortness of breath.� 2 weeks ago she felt like she had cold described as productive cough and hoarse voice.� Since
that time she is also noted drainage from her legs bilaterally and was concerned that she may have had cellulitis.� She was started on Keflex which she has been on for the past 5 days.� Since then she has been having increased shortness of breath
associate with increasing cough.� She denies fevers or chills, vomiting or abdominal pain or diarrhea.� She has tightness in her chest and in her back for the past day that is constant and she thinks is from coughing. She denies any history of lung
problems including asthma or COPD.� She denies smoking, alcohol or any drugs.
She has been seeing a healthcare corporate account director due to occasional symptoms of palpitations and saw her healthcare corporate account director last week without any official diagnosis of arrhythmia.
#Sepsis (fever, tachycardia, tachypnea) secondary to community-acquired pneumonia with severe dyspnea
#Acute hypoxic respiratory failure/with component of obstructive sleep apnea and hypoventilation from super morbid obesity
#History of MRSA positive sputum culture
Chest x-ray shows mild bilateral pneumonia, COVID and influenza negative/repeat chest x-ray continues to show bilateral inflammatory infiltrates
Respiratory failure multifactorial due to pneumonia and body habitus
Status post Precedex, currently on 2 L flow, wean as tolerated
Status post course of vancomycin, Zosyn
Status post IV dexamethasone, status post prednisone taper
Continue BiPAP at at bedtime while in the hospital/rehab
Stable for discharge to acute rehab when bed available
Insurance denied acute rehab, Dr. Alcaraz to help with peer to peer was also denied/looking for SNF
#Anxiety
Ativan as needed
#Food addiction/eating disorder
Mom reports that patient is unable to stop eating, suspect she has a psychiatric component to her overeating
Seen by psychiatry inpatient, recommend outpatient follow-up
#Severe obesity due to excess calories
-Patient has lost over 50 pounds during this hospital admission, encourage patient to continue healthy weight loss
-BMI 73, affects all aspects of care. Referral placed in discharge information for Dr. Ying Martini
#Bilateral lower extremity cellulitis superimposed on chronic lymphedema
Status post outpatient Keflex for 5 days
Status post vancomycin and Zosyn
#Hyperkalemia
Resolved
S/p Lokelma
#Palpitations
-Follows with cardiology outpatient, resumed metoprolol
#Stage 2 buttocks pressure injury, POA
-Wound care, frequent turning
#History of multiple episodes of cellulitis
DVT prophylaxis�SQ Lovenox
Full code
Physical Exam
General: Morbidly obese, no acute distress
HEENT: Normocephalic, Atraumatic, EOMI, MMM
Respiratory: Clear to Auscultation bilaterally/scattered rhonchi
Cardiac: Normal S1/S2, Regular Rate and Rhythm
GI: Soft, Nontender, Nondistended, Normal Bowel Sounds
Extremities: No Clubbing, Cyanosis/lower extremity ulcerations dressed
Bilateral lower extremity lymphedema noted with erythema/ongoing wraps and wound care
Anticipated Discharge: 24 - 48 hours
Subjective/Interval History
-
Date of Service: May 10, 2023
No new complaints remains on BiPAP this morning but has been on daily low-flow oxygen and tolerated/
Objective Data
-
Vital Signs:
Vital Signs
Temp Pulse Resp BP Pulse Ox
98.2 F 80 22 129/86 94
05/10/23 03:21 05/10/23 03:21 05/10/23 03:21 05/10/23 03:21 05/10/23 03:21
I&O
05/09/23 05/10/23 05/11/23
06:59 06:59 06:59
Intake Total 960 / 960 1679
Output Total 300 / 300
Balance 660 / 660 1679
Review of Systems
-
All other systems: Not reviewed unless documented
Respiratory: Reports Trouble Breathing
Skin: Reports Sores
Physical Exam
-
General: Morbidly Obese (Super morbid obesity with BMI over 70)
HEENT: Normocephalic
Respiratory: Rhonchi and Decreased Breath Sounds
Cardiac: Regular Rhythm
GI: Soft, Nontender and Nondistended
Musculoskeletal: Edema, Right Lower Extrem and Edema, Left Lower Extrem
Skin: Ulcers (With dry gauze dressings in both legs)
Data Reviewed
-
Total Time Spent with Patient (in minutes): 45
[2023-05-10] MEDS: TOPROL XL 25 MG PO (07:59)
[2023-05-10] MEDS: PROTONIX 40 MG PO (07:59)
[2023-05-10] MEDS: CLARITIN 10 MG PO (07:59)
[2023-05-10] MEDS: DESENEX/MITRAZOL/ZEASORB 1 APPLIC TOPICAL ×2 (08:00→20:46)
[2023-05-10] MEDS: HYDROPHOR 1 APPLIC TOPICAL (08:01)
[2023-05-10] MEDS: TYLENOL 650 MG PO ×2 (11:29→23:15)
[2023-05-10] MEDS: LOVENOX 60 MG SC (17:04)
[2023-05-10] MEDS: MELATONIN 10 MG PO (23:00)
[2023-05-11] VITALS (7 sets, daily range): BP systolic 122–143; BP diastolic 67–91; PULSE 2–87
[2023-05-11 05:13] LABS: Hematocrit 38.2 % (37.0-47.0); Hemoglobin 12.3 g/dL (12.0-16.0); Mean Corp Hgb Conc. 32.2 g/dL (33.0-37.0); Mean Corpuscular Hgb 29.5 pg (27.0-31.0); Mean Corpuscular Volume 91.6 fL (81.0-99.0); Mean Platelet Volume 9.6 fL (7.4-10.4); Platelet Count 304 10^3/uL (130-400); Red Blood Cell Count 4.17 10^6/uL (4.20-5.40); Red Cell Dist. Width 14.3 % (11.5-14.5); White Blood Cell Count 5.8 10^3/uL (4.8-10.8)
[2023-05-11 05:38] LABS: Blood Urea Nitrogen 11 mg/dl (7-17); Calcium 9.3 mg/dl (8.4-10.2); Carbon Dioxide 30 mmol/L (22-30); Chloride 98 mmol/L (98-107); Estimated Creatinine Clearance > 125 ml/min; Glucose 105 mg/dl (70-99); Potassium 3.9 mmol/L (3.5-5.1); Sodium 137 mmol/L (135-145); eGFR > 60.00
[2023-05-11] MEDS: PROTONIX 40 MG PO (09:27)
[2023-05-11] MEDS: DESENEX/MITRAZOL/ZEASORB 1 APPLIC TOPICAL ×2 (09:27→21:02)
[2023-05-11] MEDS: CLARITIN 10 MG PO (09:27)
[2023-05-11] MEDS: TOPROL XL 25 MG PO (09:27)
[2023-05-11] MEDS: HYDROPHOR 1 APPLIC TOPICAL (09:28)
--- NOTE | 2023-05-11 11:11 | CM ---
Received return call from SINDY Raygoza from [facility]. 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 No determination to date. Idalmis also said that there are no facilities in network that can manage a bariatric patient of 500 pounds.
She will continue to follow single case agreement. Idalmis works [employer].
--- NOTE | 2023-05-11 14:18 | W.PN.HOSP.TC ---
Today's Communication/Plan
-
Discharge to rehab when bed available
Assessment / Plan
Assessment / Plan
HPI: 38-year-old with history of obesity, lymphedema, multiple episodes of cellulitis, hypertension, palpitations presenting with shortness of breath.� 2 weeks ago she felt like she had cold described as productive cough and hoarse voice.� Since
that time she is also noted drainage from her legs bilaterally and was concerned that she may have had cellulitis.� She was started on Keflex which she has been on for the past 5 days.� Since then she has been having increased shortness of breath
associate with increasing cough.� She denies fevers or chills, vomiting or abdominal pain or diarrhea.� She has tightness in her chest and in her back for the past day that is constant and she thinks is from coughing. She denies any history of lung
problems including asthma or COPD.� She denies smoking, alcohol or any drugs.
She has been seeing a wire threader due to occasional symptoms of palpitations and saw her wire threader last week without any official diagnosis of arrhythmia.
#Sepsis (fever, tachycardia, tachypnea) secondary to community-acquired pneumonia with severe dyspnea
#Acute hypoxic respiratory failure/with component of obstructive sleep apnea and hypoventilation from super morbid obesity
#History of MRSA positive sputum culture
Chest x-ray shows mild bilateral pneumonia, COVID and influenza negative/repeat chest x-ray continues to show bilateral inflammatory infiltrates
Respiratory failure multifactorial due to pneumonia and body habitus
Status post Precedex, currently on 2 L flow, wean as tolerated
Status post course of vancomycin, Zosyn
Status post IV dexamethasone, status post prednisone taper
Continue BiPAP at bedtime while in the hospital/rehab
Insurance denied acute rehab, Peer to peer was also denied
Medically stable for discharge to rehab when bed available
#Anxiety
Ativan as needed
#Food addiction/eating disorder
Mom reports that patient is unable to stop eating, suspect she has a psychiatric component to her overeating
Seen by psychiatry inpatient, recommend outpatient follow-up
#Severe obesity due to excess calories
-Patient has lost over 50 pounds during this hospital admission, encourage patient to continue healthy weight loss
-BMI 73, affects all aspects of care. Referral placed in discharge information for Dr. Ying Martini
#Bilateral lower extremity cellulitis superimposed on chronic lymphedema
Status post outpatient Keflex for 5 days
Status post vancomycin and Zosyn
#Hyperkalemia
Resolved
S/p Lokelma
#Palpitations
-Follows with cardiology outpatient, resumed metoprolol
#Stage 2 buttocks pressure injury, POA
-Wound care, frequent turning
#History of multiple episodes of cellulitis
DVT prophylaxis�SQ Lovenox
Full code
Physical Exam
General: Morbidly obese, no acute distress
HEENT: Normocephalic, Atraumatic, EOMI, MMM
Respiratory: Clear to Auscultation bilaterally/scattered rhonchi
Cardiac: Normal S1/S2, Regular Rate and Rhythm
GI: Soft, Nontender, Nondistended, Normal Bowel Sounds
Extremities: No Clubbing, Cyanosis/lower extremity ulcerations dressed
Bilateral lower extremity lymphedema noted with erythema/ongoing wraps and wound care
Anticipated Discharge: 24 - 48 hours
Subjective/Interval History
-
Date of Service: May 11, 2023
Breathing continues to improve. Feels tired.
Objective Data
-
Labs:
Laboratory Results
05/11/23
04:28
WBC 5.8
Hgb 12.3
Hct 38.2
Plt Count 304
Sodium 137
Potassium 3.9
Chloride 98
Carbon Dioxide 30
BUN 11
Creatinine 0.6
Glucose 105 H
Calcium 9.3
Vital Signs:
Vital Signs
Temp Pulse Resp BP Pulse Ox
97.5 F 88 17 131/76 94
05/11/23 11:13 05/11/23 11:13 05/11/23 11:13 05/11/23 11:13 05/11/23 11:13
I&O
05/10/23 05/11/23 05/12/23
06:59 06:59 06:59
Intake Total 1680 / 1680 1660 / 1660
Balance 1680 / 1680 1660 / 1660
[2023-05-11] MEDS: LOVENOX 60 MG SC (17:03)
[2023-05-11] MEDS: MELATONIN 10 MG PO (22:34)
[2023-05-12] VITALS (9 sets, daily range): BP systolic 125–149; BP diastolic 74–90; PULSE 2–91; O2SAT 96
--- NOTE | 2023-05-12 08:21 | W.PN.HOSP.TC ---
Today's Communication/Plan
-
Discharge to rehab when bed available
Assessment / Plan
Assessment / Plan
HPI: 38-year-old with history of obesity, lymphedema, multiple episodes of cellulitis, hypertension, palpitations presenting with shortness of breath.� 2 weeks ago she felt like she had cold described as productive cough and hoarse voice.� Since
that time she is also noted drainage from her legs bilaterally and was concerned that she may have had cellulitis.� She was started on Keflex which she has been on for the past 5 days.� Since then she has been having increased shortness of breath
associate with increasing cough.� She denies fevers or chills, vomiting or abdominal pain or diarrhea.� She has tightness in her chest and in her back for the past day that is constant and she thinks is from coughing. She denies any history of lung
problems including asthma or COPD.� She denies smoking, alcohol or any drugs.
She has been seeing a bandage maker due to occasional symptoms of palpitations and saw her bandage maker last week without any official diagnosis of arrhythmia.
#Sepsis (fever, tachycardia, tachypnea) secondary to community-acquired pneumonia with severe dyspnea
#Acute hypoxic respiratory failure/with component of obstructive sleep apnea and hypoventilation from super morbid obesity
#History of MRSA positive sputum culture
Chest x-ray shows mild bilateral pneumonia, COVID and influenza negative/repeat chest x-ray continues to show bilateral inflammatory infiltrates
Respiratory failure multifactorial due to pneumonia and body habitus
Status post Precedex, currently on 2-3 L flow, wean as tolerated
Status post course of vancomycin, Zosyn
Status post IV dexamethasone, status post prednisone taper
Continue BiPAP at bedtime while in the hospital/rehab
Insurance denied acute rehab, Peer to peer was also denied
Medically stable for discharge to rehab when bed available
#Anxiety
Ativan as needed
#Food addiction/eating disorder
Mom reports that patient is unable to stop eating, suspect she has a psychiatric component to her overeating
Seen by psychiatry inpatient, recommend outpatient follow-up
#Severe obesity due to excess calories
-Patient has lost over 50 pounds during this hospital admission, encourage patient to continue healthy weight loss
-BMI 73, affects all aspects of care. Referral placed in discharge information for Dr. Ying Martini
#Bilateral lower extremity cellulitis superimposed on chronic lymphedema
Status post outpatient Keflex for 5 days
Status post vancomycin and Zosyn
#Hyperkalemia
Resolved
S/p Lokelma
#Palpitations
-Follows with cardiology outpatient, resumed metoprolol
#Stage 2 buttocks pressure injury, POA
-Wound care, frequent turning
#History of multiple episodes of cellulitis
DVT prophylaxis�SQ Lovenox
Full code
Physical Exam
General: Morbidly obese, no acute distress
HEENT: Normocephalic, Atraumatic, EOMI, MMM
Respiratory: Clear to Auscultation bilaterally/scattered rhonchi
Cardiac: Normal S1/S2, Regular Rate and Rhythm
GI: Soft, Nontender, Nondistended, Normal Bowel Sounds
Extremities: No Clubbing, Cyanosis/lower extremity ulcerations dressed
Bilateral lower extremity lymphedema noted with erythema/ongoing wraps and wound care
Anticipated Discharge: Within 24 hours
Subjective/Interval History
-
Date of Service: May 12, 2023
No acute changes, patient's breathing continues to improve.
Objective Data
-
Vital Signs:
Vital Signs
Temp Pulse Resp BP Pulse Ox
98.5 F 83 20 125/74 94
05/12/23 07:47 05/12/23 07:47 05/12/23 07:47 05/12/23 07:47 05/12/23 07:47
I&O
05/11/23 05/12/23 05/13/23
06:59 06:59 06:59
Intake Total 1660 / 1660 1440 / 1440
Output Total 500 / 500
Balance 1660 / 1660 940 / 940
[2023-05-12] MEDS: CLARITIN 10 MG PO (09:14)
[2023-05-12] MEDS: TOPROL XL 25 MG PO (09:14)
[2023-05-12] MEDS: PROTONIX 40 MG PO (09:15)
[2023-05-12] MEDS: HYDROPHOR 1 APPLIC TOPICAL (09:16)
[2023-05-12] MEDS: DESENEX/MITRAZOL/ZEASORB 1 APPLIC TOPICAL ×2 (09:17→20:24)
[2023-05-12] MEDS: LOVENOX 60 MG SC (17:27)
[2023-05-12] MEDS: MELATONIN 10 MG PO (21:27)
[2023-05-13 00:36] VITALS: PULSE 2; PULSE 88
[2023-05-13 03:15] VITALS: BP 138/79
[2023-05-13 04:16] VITALS: PULSE 2
--- NOTE | 2023-05-13 07:38 | W.PN.HOSP.TC ---
Today's Communication/Plan
-
Discharge to short-term rehab when bed available
Assessment / Plan
Assessment / Plan
HPI: 38-year-old with history of obesity, lymphedema, multiple episodes of cellulitis, hypertension, palpitations presenting with shortness of breath.� 2 weeks ago she felt like she had cold described as productive cough and hoarse voice.� Since
that time she is also noted drainage from her legs bilaterally and was concerned that she may have had cellulitis.� She was started on Keflex which she has been on for the past 5 days.� Since then she has been having increased shortness of breath
associate with increasing cough.� She denies fevers or chills, vomiting or abdominal pain or diarrhea.� She has tightness in her chest and in her back for the past day that is constant and she thinks is from coughing. She denies any history of lung
problems including asthma or COPD.� She denies smoking, alcohol or any drugs.
She has been seeing a canadian bacon tier due to occasional symptoms of palpitations and saw her canadian bacon tier last week without any official diagnosis of arrhythmia.
#Sepsis (fever, tachycardia, tachypnea) secondary to community-acquired pneumonia with severe dyspnea
#Acute hypoxic respiratory failure/with component of obstructive sleep apnea and hypoventilation from super morbid obesity
#History of MRSA positive sputum culture
Chest x-ray shows mild bilateral pneumonia, COVID and influenza negative/repeat chest x-ray continues to show bilateral inflammatory infiltrates
Respiratory failure multifactorial due to pneumonia and body habitus
Status post Precedex, currently on 2-3 L flow, wean as tolerated
Status post course of vancomycin, Zosyn
Status post IV dexamethasone, status post prednisone taper
Continue BiPAP at bedtime while in the hospital/rehab
Insurance denied acute rehab, Peer to peer was also denied
Medically stable for discharge to rehab when bed available
#Anxiety
Ativan as needed
#Food addiction/eating disorder
Mom reports that patient is unable to stop eating, suspect she has a psychiatric component to her overeating
Seen by psychiatry inpatient, recommend outpatient follow-up
#Severe obesity due to excess calories
-Patient has lost over 50 pounds during this hospital admission, encourage patient to continue healthy weight loss
-BMI 73, affects all aspects of care. Referral placed in discharge information for Dr. Ying Martini
#Bilateral lower extremity cellulitis superimposed on chronic lymphedema
Status post outpatient Keflex for 5 days
Status post vancomycin and Zosyn
#Hyperkalemia
Resolved
S/p Lokelma
#Palpitations
-Follows with cardiology outpatient, resumed metoprolol
#Stage 2 buttocks pressure injury, POA
-Wound care, frequent turning
#History of multiple episodes of cellulitis
DVT prophylaxis�SQ Lovenox
Full code
Physical Exam
General: Morbidly obese, no acute distress
HEENT: Normocephalic, Atraumatic, EOMI, MMM
Respiratory: Clear to Auscultation bilaterally/scattered rhonchi
Cardiac: Normal S1/S2, Regular Rate and Rhythm
GI: Soft, Nontender, Nondistended, Normal Bowel Sounds
Extremities: No Clubbing, Cyanosis/lower extremity ulcerations dressed
Bilateral lower extremity lymphedema noted with erythema/ongoing wraps and wound care
Anticipated Discharge: Today
Subjective/Interval History
-
Date of Service: May 13, 2023
No acute changes.
Objective Data
-
Vital Signs:
Vital Signs
Temp Pulse Resp BP Pulse Ox
98.1 F 86 16 138/79 93
05/13/23 03:15 05/13/23 03:15 05/13/23 03:15 05/13/23 03:15 05/13/23 03:15
I&O
05/12/23 05/13/23 05/14/23
06:59 06:59 06:59
Intake Total 1440 / 1440 1420 / 1420
Output Total 500 / 500 575 / 575
Balance 940 / 940 845 / 845
[2023-05-13 08:37] VITALS: BP 138/78
[2023-05-13] MEDS: CLARITIN 10 MG PO (09:16)
[2023-05-13] MEDS: TOPROL XL 25 MG PO (09:16)
[2023-05-13] MEDS: PROTONIX 40 MG PO (09:16)
[2023-05-13] MEDS: HYDROPHOR 1 APPLIC TOPICAL (09:18)
[2023-05-13] MEDS: DESENEX/MITRAZOL/ZEASORB 1 APPLIC TOPICAL ×2 (09:19→19:58)
--- NOTE | 2023-05-13 10:28 | W.DCSUMMARY ---
Addendum entered and electronically signed by Dexter Epperson MD 05/14/23 14:30:
Correction, actual date of discharge: 05/13/23
Original Note:
Discharge Summary
Discharge Data
Date of Admission: 04/15/23
Date of Discharge: 05/14/23
-
Pending Results: No
Hospital Course
Discharge diagnosis:
Sepsis
Bilateral pneumonia
Acute hypoxic respiratory failure
Probable obstructive sleep apnea and obesity hypoventilation syndrome
Anxiety
Food addiction/eating disorder
Severe obesity due to excess calories
Bilateral lower extremity cellulitis superimposed on chronic lymphedema
Palpitations
Hyperkalemia
Stage II buttock pressure injury, present upon admission
Consults: Specialty Department Supervisor, psychiatry
CXR 04-18-23 c/w below, underpenetrated poor quality film but seemingly worse bilat infiltrates
Chest X-Ray: 04/15/23- New findings concerning for mild bilateral pneumonia. Findings related to limited inspiration cannot be completely excluded. Clinical and laboratory correlation recommended.
CHEST 03/31/23- Limited study demonstrating no active cardiopulmonary disease. There is no large central pulmonary embolus. Evaluation for peripheral pulmonary embolism is limited by the patient's large size
TTE 02-27-23: very technically difficult, contrasted, LVEF 55-60%
Hospital course:
38-year-old female with super morbid obesity with BMI of over 73, chronic lower extremity edema/cellulitis, hypertension and suspected obstructive sleep apnea was admitted for sepsis secondary to pneumonia. She was negative for COVID, negative for
influenza. She was positive for MRSA screen. She was noted to be bronchospastic. She was treated with IV vancomycin, Iv Zosyn, IV dexamethasone, and bronchodilators.
Patient's respiratory status worsened, she did require high flow, and Bipap. She was transferred to the ICU, and seen in conjunction with the glove pairer/motorboat mechanic. She had severe anxiety, and was requiring Precedex. After a prolonged
hospital course, she was eventually weaned off of the Precedex, and her oxygen requirements improved.
Patient completed a full course of vancomycin and Zosyn. She was transitioned from IV steroids to prednisone taper. She completed her prednisone taper. Her oxygen requirements improved, and she was requiring 2-3 L upon discharge.
Patient had a prolonged hospital course secondary to difficulty finding placement. Patient's BMI was 73, therefore it is difficult to find an accepting SNF short-term rehab. Attempts were made to place her in acute rehab, but that was denied by
insurance. Peer to peer review was done, that was also denied. An accepting SNF was found that was out of her insurance network. Special authorization was obtained through her insurance, and she is medically stable for discharge to short-term
rehab.
She is to continue using BiPAP nightly, Lovenox 60 mg daily for DVT prophylaxis.
She has been instructed to follow-up with pulmonology in the office for sleep apnea testing. She has also been recommended to follow-up with Dr. Martini and psychiatry for her eating disorder and weight management.
Disposition: Short-term rehab
Discharge planning: Required 65 minutes
Discharge Plan
-
Patient Disposition: Long-Term/SNF
Discharge Diagnosis/Procedures: Sepsis secondary community-acquired pneumonia with severe dyspnea
Acute hypoxic respiratory failure with obstructive sleep apnea component and hypoventilation from super morbid obesity(referral placed to Dr. Ying Martini)
Bilateral lower extremity cellulitis superimposed on chronic lymphedema
Stage II buttock pressure injuries prior to admission
Diet: Diabetic, Carb Controlled
Additional Diets: 2000-calorie
Activity: With assistance
Additional Activity: BiPAP nightly
Driving Restrictions: As prior to admission
Activity Restrictions/Additional Instructions:
Follow-up with pulmonology, obesity medicine specialist Dr. Martini, psychiatry for your eating disorder, as well as your primary care doctor 1 week.
Wound Care Instructions
Bilateral le's-clean with saline or Vashe wound cleanser, Aquaphor ointment to dry skin Le's daily, adaptic, ABD pad, secure with Kerlix wrap, change daily and as needed for drainage (add alginate after adaptic as needed for large amount of
drainage).
Miconazole powder to abdominal/groin folds, affected skin folds twice a day.
Barrier ointment to buttocks/betsy/posterior upper thighs twice a day (i.e. Petroleum ointment or Calazime).
Bilateral knee high Stanford wraps as tolerated; may remove at bedtime; re-wrap every am.
Follow up at wound care center call for an appointment.
Referrals:
Abel Thurman MD [Active] - in three to four weeks
(May see SANDWICH MACHINE OPERATOR. DAVID?OHS.
Will need a CXR prior visit)
NONE,* [Active] -
Ying Martini MD [Active] - in three to four weeks (Obesity medicine)
Kristina Payne MD [Active] - in two to three weeks
Sarah Chand MD [Active] -
Prescriptions:
New
miconazole nitrate [Miconazorb AF] 2 % Powder
1 applic topical BID Qty: 85 0RF
pantoprazole 40 mg Tablet,Delayed Release (Dr/Ec)
40 mg PO DAILY Qty: 0 0RF
levalbuterol HCl 1.25 mg/3 mL Solution For Nebulization
1.25 mg inhalation R Q6HPRN PRN (Reason: sob/wheeze) Qty: 72 0RF
enoxaparin 60 mg/0.6 mL Syringe
60 mg SC QPM Qty: 0 0RF
melatonin 5 mg Tablet
10 mg PO HS Qty: 10 0RF
Continued
therapeutic multivitamin Tablet
1 tab PO DAILY
cholecalciferol (vitamin D3) [Vitamin D3] 50 mcg (2,000 unit) Tablet
50 mcg PO DAILY
metoprolol succinate 25 mg Tablet Extended Release 24 Hr
25 mg PO DAILY Qty: 30 0RF
cetirizine 10 mg Tablet
10 mg PO DAILY
Discontinued
naproxen 500 mg tablet
500 mg PO [id number] PRN (Reason: mild to moderate pain)
cephalexin 500 mg capsule
500 mg PO Q12H
Patient Comments:
patient peanut picker on 04/11/23
Discharge Orders:
Discharge Patient (As Directed); Ordered 05/08/23
Ordered By: Hemal Taylor
Discharge Date and Time
Discharge Date/Time: 05/13/23 20:53
--- NOTE | 2023-05-13 12:33 | CM ---
Addendum entered by Jorge Araujo 05/13/23 12:41:
Nurse to Nurse report # is: [phone] ask for 1st floor covering installer. Fax # to send documents is: [phone].
Addendum entered by Jorge Araujo 05/13/23 12:40:
SNF auth and reference # is [id number].
Original Note:
Patient has been medically cleared for discharge to [facility] and rehab. [facility] has given auth for out of network facility as well as auth approval for single case agreement. Sydni in admissions at [facility] aware and
has received fax from [facility] stating same. Patient will be transported via ambulance at 7:30pm this evening. Patient, mother, Team notified and [facility] notified.
[2023-05-13 13:17] VITALS: BP 99/70
[2023-05-13 16:00] VITALS: BP 122/74
[2023-05-13] MEDS: LOVENOX 60 MG SC (17:14)
--- NOTE | 2023-05-13 17:44 | PTCARENOTE ---
Patient scheduled for 8 pm transfer to [facility]. This evening, report was called to nurse Bucio at [facility].
== END 2023-05-13 20:53 | DRG 871 ==
LOC: 2 NORTH 15:34
PROVIDERS: Internal Medicine; Nurse Practitioner Family; Nurse Practitioner Primary Care; Registered Nurse; Student in an Organized Health Care Education/Training Program; ADMITTING PHYSICIAN Hospitalist; ATTENDING PHYSICIAN Family Medicine; CONSULT PHYSICIAN Physical Medicine & Rehabilitation; EMERGENCY PHYSICIAN Emergency Medicine; FAMILY PHYSICIAN Family Medicine; OTHER PHYSICIAN Internal Medicine; OTHER PHYSICIAN Psychiatry & Neurology Psychiatry
PROC: 5A09357 Assistance with Respiratory Ventilation, Less than 24 Consecutive Hours, Continuous Positive Airway Pressure (ICD-10-PCS; 2023-04-15)
DX: A41.9 Sepsis, unspecified organism (principal); J18.9 Pneumonia, unspecified organism; J96.01 Acute respiratory failure with hypoxia; E66.2 Morbid (severe) obesity with alveolar hypoventilation; Z68.45 Body mass index [BMI] 70 or greater, adult; L03.116 Cellulitis of left lower limb; L03.115 Cellulitis of right lower limb; I10 Essential (primary) hypertension; I89.0 Lymphedema, not elsewhere classified; R00.2 Palpitations; E87.5 Hyperkalemia; F41.9 Anxiety disorder, unspecified; K21.9 Gastro-esophageal reflux disease without esophagitis; F50.89 Other specified eating disorder; D75.839 Thrombocytosis, unspecified; D64.9 Anemia, unspecified; E78.5 Hyperlipidemia, unspecified; K59.00 Constipation, unspecified; L89.302 Pressure ulcer of unspecified buttock, stage 2; Z11.52 Encounter for screening for COVID-19; Z91.048 Other nonmedicinal substance allergy status; Z86.14 Personal history of Methicillin resistant Staphylococcus aureus infection
CPT/HCPCS: 36600; 71045; 80048; 80053; 80202; 81003; 81015; 82805; 82962; 83605; 83735; 83880; 84100; 84145; 84484; 85025; 85027; 85610; 85730; 87040; 87070; 87086; 87205; 87324; 87449; 87502; 87641; 87811; 87899; 92526; 93005; 94003; 94640; 94660; 96365; 96375; 97110; 97116; 97163; 97167; 97530; 97535; 99285

== ENCOUNTER 2023-07-30 08:07 | Outpatient (RCR) | payer OTHER, SELFPAY | END 2023-07-30 23:59 | disposition home or self-care (01) | LOC: RPT 08:07 | PROVIDERS: ATTENDING PHYSICIAN Family Medicine | DX: I89.0 Lymphedema, not elsewhere classified (principal); Z73.6 Limitation of activities due to disability; R26.2 Difficulty in walking, not elsewhere classified | CPT/HCPCS: 97163; 97535; 97760 ==

== ENCOUNTER 2023-09-09 12:01 | Outpatient (RCR) | payer OTHER, SELFPAY | END 2023-09-10 12:02 | disposition home or self-care (01) | LOC: RPT 12:01 | PROVIDERS: ATTENDING PHYSICIAN Family Medicine | DX: I89.0 Lymphedema, not elsewhere classified (principal); Z73.6 Limitation of activities due to disability; R26.2 Difficulty in walking, not elsewhere classified | CPT/HCPCS: 97535; 97763 ==